=== PATIENT | female | born 1950 | race Hispanic/Latino ===

== ENCOUNTER 2016-12-31 10:14 | Inpatient (IN) | payer MEDICAID, OTHER ==
[~2016-12-31] VITALS: Ht 149.9 cm; Wt 90.0 kg
[2016-12-31 10:27] VITALS: BP 151/84; PULSE 101; RESP 16; O2SAT 96
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
[2016-12-31 11:31] LABS: BASOPHILS % (AUTO) 0.7 % (0-3); EOSINOPHILS % (AUTO) 1.1 % (0-5); Mean Corpuscular Hemoglobin 31.2 pg (27.0-35.0); Mean Corpuscular Volume 93.2 fL (81-100); Platelet Count 187 bil/L (150-400)
[2016-12-31 16:22] VITALS: BP 146/70; PULSE 78; RESP 16; O2SAT 99
[2016-12-31] MEDS ORDERED: OLANZapine Zydis ODT 5 mg Tablet PO ONE (19:00)
[2016-12-31 20:14] VITALS: BP 139/67; PULSE 72; RESP 16; O2SAT 98
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
[2016-12-31] MEDS ORDERED: Magnesium Hydroxide 10 mL Oral Concentration PO PRN (21:05)
[2016-12-31] MEDS ORDERED: Benzocaine-Menthol Lozenge 2/Pkg PO PRN (21:05)
[2016-12-31] MEDS ORDERED: Alum-Mag Hydrox-Simeth 30 mL Suspension PO PRN (21:05)
[2016-12-31] MEDS: LORazepam 1 mg Tablet PO PRN (21:18)
[2017-01-01] MEDS: LORazepam 1 mg Tablet PO PRN (01:13)
--- NOTE | 2017-01-01 03:06 | NUR ---
ADMIT/NOC OBS Pt arrived to unit in scrubs with daughter and per diem interpreter was available as pt is Citizen [place] speaking.through the help of the per diem interpreter and her daughter the pt was able to sign all paperwork and be oriented to the unit. She appears anxious, and this is also relayed in interpretation. Pt did get up a couple times in the night to walk the singleton and for drinks. She is pleasant with interaction and willing to try communication through signing for simple needs and questions. Observed Q 15 as ordered.
--- NOTE | 2017-01-01 04:43 | NUR ---
Nursing Note Service Delivery Management Consultant 7pm to 7am Pt arrived on unit at 2024, pleasant and cooperative with very limited turkish. Pt given HS meds and took ativan 1mg prn for anxiety and went to bed. Pt awake at 0115, requested a snack and reported feeling anxious. Given another ativan 1mg at 0115 and went back to her room where she tossed and turned until approx 0330 when she went back to sleep. Unable to assess thought content or process due to language barrier. Monitored pt. for safety, location and accountability
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
--- NOTE | 2017-01-01 15:34 | NUR ---
Central Office Frame Wirer/Counselor S:"People need to feel bad in their own house." O:Patient did not report any SI or HI. She did not voice any AH/VH, and rated her anxiety and depression at a 0. Patient was provided with a tele-vocational education professional. A: Patient was cooperative but tangential at time. The vocational education professional had to re-direct and ask questions several times. Patient was in a good mood but due to the language barrier, she is unable to communicate with staff. P: Follow care plan and coordinate with outpatient providers. Utilize vocational education professional as needed.
--- NOTE | 2017-01-01 18:36 | NUR ---
NURS Note [id number] Assessed through an slasher tender. Mood: "I'm good and calm." Denies depression, anxiety. Affect: Well-modulated. Thought Process/Content: "There are too many people living in my house. I need them to leave. I just need to go home and give my family therapy so that they'll act right and not drink so much beer. The Jehovahs witnesses are spies, they are coming for me. I can read theirs thoughts." Paranoid, delusional, bizarre. Denies SI, HI. Denies AH, VH. Behavior: Pt in room until lunch. Ate lunch and dinner. After lunch pt spoke with doctor, case reviewer, and myself through an slasher tender. Pt has been pleasant and cooperative. Pt's family visited and brought clothes and other items (inventoried). PRNs/NURS: Pt in need of shower -- pt's daughter's have requested to help bath pt. Pt has some trouble rising from bed. Blood sugars started tonight (228), continue to monitor.
--- NOTE | 2017-01-02 06:23 | NUR ---
Nursing Note Jeweler Apprentice 7pm to 7am Pt went to sleep at start of shift and slept uninterrupted for duration. Breathing even and unlabored. Staff choose not to wake pt. for HS Seroquel as she had not slept the previous night and was sleeping soundly. Monitored pt. with 15 minute face checks for safety, location and accountability.
[2017-01-02 08:05] VITALS: BP 118/84; PULSE 123; RESP 18
--- NOTE | 2017-01-02 17:11 | PCM.PNPSY ---
Subjective Date of Service Jan 02, 2017 Subjective The patient was seen with a interpreter deaf. The patient reported that she was doing well on the unit and felt that the medications were helping her to feel more calm. She stated that the "food not poisoned and was pretty good." She later was noted to be speaking to her vicomy-ic-iyi (who is not physically present), Therese, reporting that she believed her vpzgpv-ie-kan was making tortillas and that they might be poisoned. She also appeared to be having visual hallucinations of her [id number]. She also indicated that perhaps her auimov-av-ryi could hear her thoughts. The patient was noted to make such non sequiturs as commenting on the translators clothing and that he should be wearing a jacket and vest. She also indicated that "Karina and Ade want to get ." She reported that she still has some concerns about food in the home but less so. The patient reports some dry mouth but no other side effects. Sleep: 10+ hours. Appetite: "The food is pretty good" Suicidal and homicidal ideation: Denies suicidal ideation stating, "I feel I am improving." She does however endorse some vague homicidal thoughts. Auditory hallucinations: Endorses Visual hallucinations: Endorses Other Psychotic Symptoms: Paranoia as above Anxiety: 0/10 Depression: 0/10 Current Medications Current Medications Lorazepam 1 mg Q4H PRN PO Last administered on 01/01/17 01:13; Admin Dose 1 MG ; Start 12/31/16 at 21:05 Metformin HCl 500 mg BIDWM PO Last administered on 01/02/17 08:23; Admin Dose 500 MG; Start 01/01/17 at 17:30 Olanzapine 5 mg HS PO Last administered on 12/31/16 21:18; Admin Dose 5 MG; Start 12/31/16 at 21:00; Stop 01/01/17 at 14:54; Status DC Olanzapine 10 mg ONCE ONCE PO Last administered on 12/31/16 19:10; Admin Dose 10 MG; Start 12/31/16 at 19:00; Stop 12/31/16 at 19:01; Status DC Quetiapine Fumarate 100 mg BID PO Last administered on 01/02/17 08:23; Admin Dose 100 MG; Start 01/01/17 at 14:55 Mental Status Exam Appearance: Neat/well groomed Attitude: Pleasant, Cooperative Behavior: No unusual behavior Affect: Well Modulated/Appropriate Mood: Euphoric (almost at times) Thought Process/Associations: Loose, Tangential, Circumstantial, Clanging associations Speech Production: Abundant Speech Rate: Normal Speech Articulation: Slurred (mild dysarthria) Thought Content: Somatic preoccupation, Suspicious Danger to Self/Suicidal Ideati: None Danger to Others: Thoughts/Plans of Harming Others Delusions: Thought Broadcasting (Endorses) Hallucinations: Auditory (Endorses), Visual (Endorses) Consciousness: Alert Orientation: Person, Place Memory: Short Term Memory (Impaired), Winder Tender Memory (Impaired) Estimate Intellectual Function: Average Basis for IQ estimate: Word use/vocabulary, Educational history Attention/Concentration & Cogn: Impaired Insight: Limited Judgement: Limited Result Diagram: 12/31/16 1115 12/31/16 1115 Mental Health Plan The patient is a 66-year-old female with a history of schizophrenia who presents with symptom exacerbation. The patient has not been in active treatment of any kind for some time. It is unclear what exact medication she was taking it appears that the patient was most recently taking what to do and risperidone. According to family members the long-acting risperidone injection appeared to be of little effect. The patient endorsed using quetiapine and felt that this was useful in the past. She was agreeable to restarting this medication and indicated that it is making her feel calmer and she is less paranoid. The patient remains quite delusional, however, and appears to need a higher dose of medication and so we will continue with quetiapine titration. [place] AXIS I Schizophrenia, chronic paranoid type. AXIS II Deferred. AXIS III History of diabetes by report AXIS IV Moderate. AXIS V Global Assessment of Functioning is 30. Medications Quetiapine 100 mg daily and 200 mg nightly Metformin 500 mg twice daily Lorazepam 1 mg every 4 hours as needed for anxiety or agitation Treatments 1. The patient will be admitted to the [facility] and provided a safe and secure environment. 2. The patient is currently denying suicidality and is not in need of a one- to-one at this time. 3. The patient is encouraged to participate in group and milieu activities. 4. The patient will be seen by the treatment team on a daily basis to assess symptoms, side effects and response to treatment. 5. Quetiapine will be increased to 100 mg daily and 200 mg nightly to better address psychosis. 6. The patient will be provided lorazepam 1 mg every 4 hours as needed for anxiety or agitation. 7. Zolpidem 5 mg nightly as needed for insomnia. 8. Will need to followup with [facility] on Tuesday regarding prior treatment. 9. Continue metformin 500 mg twice daily and monitor blood sugars and adjust as appropriate. We will obtain hemoglobin A1c with next blood draw. 10. Anticipated length of stay is 10-14 days. Rohan Moran MD Jan 02, 2017 17:11
--- NOTE | 2017-01-02 17:50 | NUR ---
NURS Note [id number] Mood: "I'm calm and easy." Denies depression, anxiety. Affect: Well-modulated. Behavior: Responding to internal stimuli. Pt isolated in room much of day. Thought Content/Process: "I was telling Carrol not to eat something because they are putting poison in the food. I see Carrol making tortillas in the kitchen." Tangential, loose associations. Endorses AH, VH. Denies SI, HI. PRN/NURS Notes: Day Treatment Clinician/Art Therapist noticed wet spot on chair after pt stood up, but pants did not appear wet. Will place fresh underwear and incontinence pads in pt room. Pt denies problems with urination or defecation. Ate 50% breakfast, 75% lunch. Pt states that she feels comfortable on the unit.
--- NOTE | 2017-01-02 18:02 | NUR ---
Observations [id number] Pt isolative to room much of the day. Friendly with peers and staff throughout the day. Attended all meals, eating an average of 75%. Pt visited with family in the afternoon, appeared to enjoy her visit. Pt language barrier makes it difficult to communicate with other peers. Pt observed every 15 minutes of shift as directed.
[2017-01-02] MEDS: LORazepam 1 mg Tablet PO PRN (21:29)
--- NOTE | 2017-01-02 23:10 | NUR ---
Nursing 7p-7a Pt had family visiting this evening. After her family left she returned to her room. She is pleasant and cooperative upon interaction. She smiled and took her scheduled medication without difficulty. She was noted to be asleep by 2200. Will continue to monitor mood, behavior and sleep cycle through the night. Addendum: 01/03/17 at 0601 by MARTINEZ KWAN RN Adequate sleep through the night with no noted distress or awakening per protocol checks. Total sleep over 8 hours.
[2017-01-03 11:45] VITALS: BP 112/72; PULSE 102
--- NOTE | 2017-01-03 14:11 | NUR ---
NURS Note [id number] Assessed with live endocrinologist. Mood: Denies depression and anxiety. Affect: Well-modulated. Thought Process/Content: "I'm not hearing Carrol's voice today." Denies AH, VH. Denies SI, HI. Behavior: Pt isolated in room much of day. Out for meals. PRN/NURS Notes: AM BG 149. No PRNs. Physical therapy consult today, assessed [id number] and gait. PT felt that patient was relatively stable getting up and walking and felt that pt did not require a walker but could use one if she wanted to. Pt has expressed that she found the walk helpful, walker currently in pt room. PT recommends that patient buy a four wheel walker if she wants assistive device for home but does not feel that it is necessary. Patient expressed that she does have trouble getting up in the morning and sometimes feels dizzy. Outsole Cutter Machine observed pt struggling to rise in morning and assisted pt in getting out of bed. Pt states that she defecated in her underwear. Pt given clean underwear, depends, and pads. Stated "I'll put them back on if I have diarrhea again." Explained medications to patient. Pt did not have any questions about medications or care.
--- NOTE | 2017-01-03 15:33 | PCM.PNPSY ---
Subjective Date of Service Jan 03, 2017 Subjective The patient was seen with a senior geologist. The patient reported to nursing staff that she had had an episode of diarrhea without bleeding or melena and believed it was due to potatoes and broccoli from dinner. She reported feeling fine without any nausea chills or other somatic symptoms. The patient reported that she was doing well on the unit and felt that the medications were helping her. She indicated that she did not believe the food here was poisoned and was not sure about the food at home as she is here now. She denied speaking to her yzxwrn-aa-vtu Therese using telepathy but immediately reported speaking to her son telling him to go out to eat rather than eat at home so that he would not be exposed to poison. The patient reported that she needed further time to get well but could not say how long. She initially stated "you are out of luck because I am not going to here." When it was explained to the patient that we were trying to find out how much time she thought she needed to be in the hospital, she laughed and said she did not know. The patient was reluctant to increase quetiapine but later agreed when she was informed it would only be 300 mg. The patient reports some dry mouth but no other side effects. Sleep: 8+ hours, "well". Appetite: "good" Suicidal and homicidal ideation: Denies Auditory hallucinations: Endorses Visual hallucinations: Denies Other Psychotic Symptoms: Telepathy as above Anxiety: 0/10 Depression: 0/10 Current Medications Current Medications Metformin HCl 500 mg BIDWM PO Last administered on 01/03/17t 07:37; Admin Dose 500 MG; Start 01/01/17 at 17:30 Mental Status Exam Vital Signs Vital Signs Date Time Temp Pulse Resp B/P Pulse Ox O2 Delivery O2 Flow Rate FiO2 01/03/17 11:45 37.6 102 112/72 Appearance: Neat/well groomed Attitude: Pleasant, Cooperative Behavior: No unusual behavior Affect: Well Modulated/Appropriate Mood: Euphoric (almost at times) Thought Process/Associations: Loose, Tangential Speech Production: Normal Speech Rate: Normal Speech Articulation: Slurred (mild dysarthria) Thought Content: Somatic preoccupation, Suspicious Danger to Self/Suicidal Ideati: None Danger to Others: None Delusions: Thought Broadcasting (Endorses) Hallucinations: Auditory (Endorses), Visual (Denies) Consciousness: Alert Orientation: Person, Place, Situation Memory: Short Term Memory (Impaired), Mcfp Memory (Impaired) Estimate Intellectual Function: Average Basis for IQ estimate: Word use/vocabulary, Educational history Attention/Concentration & Cogn: Impaired Insight: Limited Judgement: Limited Result Diagram: 12/31/16 1115 12/31/16 1115 Mental Health Plan The patient is a 66-year-old female with a history of schizophrenia who presents with symptom exacerbation. The patient has not been in active treatment of any kind for some time. It is unclear what exact medication she was taking it appears that the patient was most recently taking what to do and risperidone. According to family members the long-acting risperidone injection appeared to be of little effect. The patient endorsed using quetiapine and felt that this was useful in the past. She was agreeable to restarting this medication and indicated that it is making her feel calmer and she is less paranoid. The patient remains quite delusional, however, and appears to need a higher dose of medication and so we will continue with quetiapine titration. The patient is agreeable to further inpatient treatment to stabilize her condition. Blood sugar today 149, we will continue with current dose of metformin. [place] AXIS I Schizophrenia, chronic paranoid type. AXIS II Deferred. AXIS III History of diabetes by report AXIS IV Moderate. AXIS V Global Assessment of Functioning is 30. Medications Quetiapine 100 mg daily and 200 mg nightly Metformin 500 mg twice daily Lorazepam 1 mg every 4 hours as needed for anxiety or agitation Treatments 1. The patient will be admitted to the [facility] and provided a safe and secure environment. 2. The patient is currently denying suicidality and is not in need of a one- to-one at this time. 3. The patient is encouraged to participate in group and milieu activities. 4. The patient will be seen by the treatment team on a daily basis to assess symptoms, side effects and response to treatment. 5. Quetiapine will be increased to 100 mg daily and 200 mg nightly to better address psychosis. 6. The patient will be provided lorazepam 1 mg every 4 hours as needed for anxiety or agitation. 7. Zolpidem 5 mg nightly as needed for insomnia. 8. Will need to followup with [facility] on Tuesday regarding prior treatment. 9. Continue metformin 500 mg twice daily and monitor blood sugars and adjust as appropriate. We will obtain hemoglobin A1c with next blood draw. 10. Anticipated length of stay is 10-14 days. Rohan Moran MD Jan 03, 2017 15:33
--- NOTE | 2017-01-03 15:33 | NUR ---
Evaluation completed. Please go to "Notes" then click on "Assessments and Notes" (bottom left corner of screen). Then select appropriate discipline tab on top of screen.
--- NOTE | 2017-01-03 15:54 | NUR ---
Sde/Counselor S: I'm not planning on dying here. O: Patient did not report any SI or HI, no auditory or visual hallucinations, although patient stated that she is able to communicate in her head with her son and others. She did not have any depression or anxiety. Patient slept for 8+ hours. A: Patient was pleasant and cooperative. She answered all questions that the [place] conservation laborer translated, and was calm and happy. P: Follow care plan, and coordinate with outpatient providers. Continue to utilize agriculture inspector as needed.
--- NOTE | 2017-01-03 18:53 | NUR ---
Observations [id number] Pt isolated to room much of the day, only coming out for meals. Pt did eat an average of 60%. Pt's and son came to visit in evening, pt stated in Libyan "I don't want that soap opera." Pt remained in room rest of shift. She was observed every 15 minutes as directed.
--- NOTE | 2017-01-03 21:25 | NUR ---
NURSING NOTE [id number] (information received via boat carpenter mechanic and from limited conversations w/out boat carpenter mechanic present) Mood: "it's good" Affect: pleasant, calm, fatigued Behavior: pt. has been isolating to room for majority of the shift, resting in bed. She did come out for meals. FSBS at dinner was 178. She was med compliant at HS. Thought processes: dismissive at first in conversation, telling this specifications writer "everything is good" to all questions asked and showing lack of insight into why she is here. When asked if she is hearing voices she first said she hears "the voices of everyone" but when asked for clarification denied AH. Denies VH. Laughed when asked if she feels depressed, anxious, or suicidal.
--- NOTE | 2017-01-04 05:51 | NUR ---
Sleep Pt laid awake in bed all night. She appeared internally preoccupied. Pleasant upon approach. She was offered and accepted Ambien 5mg po prn @ 0240 with no effect.
--- NOTE | 2017-01-04 14:08 | NUR ---
NURS Note DAY Assessed with live lithograph operator present. Mood: "I'm good." Denies depression, anxiety. Affect: Well-modulated. Thought Process/Content: "I'm in bed because I am tired." Speech is more clear than over the weekend. Thought process seems more linear, logical. Pt did make one bizarre comment. She asked who cut my hair and I said "A girl named Amber." She responded with, "Is she Duglas Phelps's daughter?" Behavior: In bed entire shift. Up for meals and court. Pleasant and appropriate with staff. Patient appears to be washing her underwear in the sink. She is aware that we have a washer and dryer machine. PRN/NURS Notes: AM BG 186. Dr. Moran stated that he would consult [facility] for up to date metformin dose. Pt denies diarrhea and incontinence today. Pt states that she is very tired, Dr. Moran has changed psych meds to HS. Pt denies being awake all night, despite staff observations to the contrary.
--- NOTE | 2017-01-04 14:45 | PCM.PNPSY ---
Subjective Date of Service Jan 04, 2017 Subjective The patient is seen with a bilingual interpreter today. The patient is speaking more clearly today and indicates that her thoughts are more clear. She denies feeling that the food is poisoned and knows this as the other patients would be poisoned if she were as well. She denied speaking telepathically with her son or her [id number]. She reported some dry mouth and some daytime sedation. She denied other side effects. We discussed moving quetiapine to bedtime and the patient was agreeable. Later, the nurse that had been working with the patient reported that she had written something on a piece of paper about killing but would not elaborate. She also reportedly made a non sequitur statement about Pres. Phelps. Sleep: Staff report poor patient reports good Appetite: "Good" Suicidal and homicidal ideation: Denies Auditory hallucinations: Denies Visual hallucinations: Denies Other Psychotic Symptoms: Resolving paranoia Anxiety: Denies Depression: Denies Current Medications Current Medications Quetiapine Fumarate 100 mg DAILY PO Last administered on 01/04/17 08:02; Admin Dose 100 MG; Start 01/04/17 at 08:30 Quetiapine Fumarate 200 mg HS PO Last administered on 01/03/17 20:36; Admin Dose 200 MG; Start 01/03/17 at 21:00 Mental Status Exam Appearance: Neat/well groomed Attitude: Pleasant, Cooperative Behavior: No unusual behavior Affect: Well Modulated/Appropriate Mood: Euthymic Thought Process/Associations: Tangential Speech Production: Normal Speech Rate: Normal Speech Articulation: Slurred (mild dysarthria, but improved) Thought Content: Somatic preoccupation, Suspicious Danger to Self/Suicidal Ideati: None Danger to Others: None Delusions: Thought Broadcasting (Denies) Hallucinations: Auditory (Denies), Visual (Denies) Consciousness: Alert Orientation: Person, Place, Situation Memory: Short Term Memory (Impaired), Die Forger Memory (Impaired) Estimate Intellectual Function: Average Basis for IQ estimate: Word use/vocabulary, Educational history Attention/Concentration & Cogn: Impaired Insight: Limited Judgement: Limited Result Diagram: 12/31/16 1115 12/31/16 1115 Mental Health Plan The patient is a 66-year-old female with a history of schizophrenia who presents with symptom exacerbation. The patient has not been in active treatment of any kind for some time. It is unclear what exact medication she was taking it appears that the patient was most recently taking what to do and risperidone. According to family members the long-acting risperidone injection appeared to be of little effect. The patient endorsed using quetiapine and felt that this was useful in the past. She was agreeable to restarting this medication and indicated that it is making her feel calmer and she is less paranoid. The patient remains quite delusional, however, and appears to need a higher dose of medication and so we will continue with quetiapine titration. The patient is agreeable to further inpatient treatment to stabilize her condition. Blood sugar today 186, we will contact [facility] to verify dose but will increase to 1000 mg twice daily. The patient will be switched to 300 mg quetiapine at bedtime to reduce daytime sedation. [place] AXIS I Schizophrenia, chronic paranoid type. AXIS II Deferred. AXIS III History of diabetes by report AXIS IV Moderate. AXIS V Global Assessment of Functioning is 30. Medications Quetiapine 300 mg nightly Metformin 1000 mg twice daily Lorazepam 1 mg every 4 hours as needed for anxiety or agitation Treatments 1. The patient will be admitted to the [facility] and provided a safe and secure environment. 2. The patient is currently denying suicidality and is not in need of a one- to-one at this time. 3. The patient is encouraged to participate in group and milieu activities. 4. The patient will be seen by the treatment team on a daily basis to assess symptoms, side effects and response to treatment. 5. Quetiapine will be changed to 300 mg nightly to better address psychosis and reduce sedation. 6. The patient will be provided lorazepam 1 mg every 4 hours as needed for anxiety or agitation. 7. Zolpidem 5 mg nightly as needed for insomnia. 8. Will need to followup with [facility] on Tuesday regarding prior treatment. 9. Increase metformin to 1000 mg twice daily. We will obtain hemoglobin A1c with next blood draw. 10. Anticipated length of stay is 10-14 days. Rohan Moran MD Jan 04, 2017 14:44
--- NOTE | 2017-01-04 15:11 | NUR ---
Environmental Quality Analyst/Counselor S:" I need to be here for 2 weeks." O: Patient denies any SI and HI, no anxiety or depression and no auditory or visual hallucinations. Patient stayed in her room most of the day. A: Patient's speech was not as garbled as the day prior, and she was more happy and upbeat. She does not believe anyone is trying to poison her. She was pleasant and cooperative. P: Coordinate with outpatient providers and translators. Follow care plan.
--- NOTE | 2017-01-04 16:44 | NUR ---
Observations [id number] Pt spent much of day in room, sleeping. Pt did attend breakfast, eating 60%. She did not attend lunch. Pt was not social with peers and staff, isolating to bed. She was observed every 15 minutes of shift as directed.
[2017-01-04] MEDS: LORazepam 1 mg Tablet PO PRN (19:26)
[2017-01-04 19:43] VITALS: BP 108/73; PULSE 102
--- NOTE | 2017-01-04 23:45 | NUR ---
Nurses Note evening Patient has been staying in her room and refused lunch,and dinner. Patients' son and daughter visited and encouraged the patient to leave her bed, eat her dinner in the dining room and accepted her medications prior to bed. Patient will be monitored q 15min. checks for safety and support. Addendum: 01/04/17 at 1362 by GEOVANNY FARMER RN Amended: Links added.
--- NOTE | 2017-01-05 04:47 | NUR ---
Observations 1900 - 0700 Pt was in bed when the shift started and she remained in bed and was isolative. Pt was pleasant, polite and cooperative when approached. Pt maintained behavior throughout the shift. Pt speech was poor due to language barrier. Pt was offered snack but she declined. Pt first appeared asleep at 2114, woke up a couple of times and had broken sleep. Pt had a couple of visitors and it appeared to go well. Pt was observed every 15 minutes through the night as ordered.
--- NOTE | 2017-01-05 05:03 | NUR ---
Sleep Broken sleep of 6.5 hours. Pt expressed no discomfort or distress while awake. Q15 minute safety checks.
--- NOTE | 2017-01-05 14:42 | NUR ---
Nursing Day Shift S: "No, no pnico." O: Patient responding to a german version of the [place] scale. Denies the following per the same scale: worry, anxious, sad, unhappy, and harmful thoughts. Eating well at meals. bright and cheery on approach. Readily interacts though warns "no Ingls". Has been out of her room for meals. Mainly stays in her room. Has not attended any group activities. A: Bright and cheerful. Cooperative with meds. P: CPOC. Monitor mood and behavior.
--- NOTE | 2017-01-05 15:20 | NUR ---
Obs Dayshift Pt has been out of her room more today than the past couple days. Pt comes out to eat at meal times. Does not attend groups, does not engage w/ peers difficult communication but smiles and nods politely. Pt is calm, better eye contact, and appropriate. Ok ADL's, Good meals
--- NOTE | 2017-01-05 15:45 | NUR ---
Farm Supervisor/Counselor S: "The food isn't poisoned here, or else everyone else would be sick or , too." O: Patient denies any SI or HI. She did not express any depression or anxiety, and did not have any AVH. She slept for 7 hours last night. A: Patient continues to be worried about the food at her house being poisoned. She stated that she will not take a shower as was requested by the nursing staff, but would sponge bathe in her room. She became quite agitated when the doctor tried to talk about her sons, and was tangential at times. There was some trouble with the portable emergency vehicle operator, and the patient became impatient at times, being unable to hear/understand due to the mode of translation and the echo in the room. Patient was also reminded that it was important to eat at least 2 meals a day, due to her diabetes. She states that she does not feel well enough to go home and would like to stay for 2 weeks. Family stated earlier that the patient has had mental health issues since her early 20's. P: Follow care plan and collaborate with outpatient providers.
--- NOTE | 2017-01-05 15:49 | PCM.PNPSY ---
Subjective Date of Service Jan 05, 2017 Subjective The patient is seen with a scanning tech today. The patient is speaking more clearly today and indicates that her thoughts are more clear. She denies feeling that the food is poisoned at the hospital but is still concerned about it at home. She denied speaking telepathically with her son or her sister-in- law. She reported some dry mouth and some daytime sedation, but overall felt more awake. She denied other side effects. The patient was somewhat irritable with the plasterer stucco at times. We discussed showering on a routine basis, but the patient stated that she would bath by hand in the bathroom. The patient's family was present for court and indicated that the patient had likely been psychotic starting in her 20s. The patient is typically medication non- adherent when experiencing side effects. Sleep: 7+ hours, "good" Appetite: "Good" Suicidal and homicidal ideation: Denies Auditory hallucinations: Denies Visual hallucinations: Denies Other Psychotic Symptoms: Resolving paranoia Anxiety: Denies Depression: Denies Current Medications Current Medications Metformin HCl 1,000 mg BIDWM PO Last administered on 01/05/17 10:15; Admin Dose 1,000 MG; Start 01/04/17 at 17:30 Quetiapine Fumarate 100 mg DAILY PO Last administered on 01/04/17 08:02; Admin Dose 100 MG; Start 01/04/17 at 08:30; Stop 01/04/17 at 23:00; Status DC Quetiapine Fumarate 200 mg HS PO Last administered on 01/04/17 19:27; Admin Dose 200 MG; Start 01/03/17 at 21:00; Stop 01/04/17 at 23:00; Status DC Mental Status Exam Appearance: Neat/well groomed Attitude: Pleasant, Cooperative Behavior: No unusual behavior Affect: Well Modulated/Appropriate Mood: Irritable Speech Production: Normal Speech Rate: Normal Speech Articulation: Slurred (mild dysarthria, but improved) Thought Content: Somatic preoccupation, Suspicious Danger to Self/Suicidal Ideati: None Danger to Others: None Delusions: Thought Broadcasting (Denies), Paranoid (Endorses) Hallucinations: Auditory (Denies), Visual (Denies) Consciousness: Alert Orientation: Person, Place, Situation Memory: Short Term Memory (Impaired), Cemetery Keeper Memory (Impaired) Estimate Intellectual Function: Average Basis for IQ estimate: Word use/vocabulary, Educational history Attention/Concentration & Cogn: Impaired Insight: Limited Judgement: Limited Result Diagram: 12/31/16 1115 12/31/16 1115 Mental Health Plan The patient is a 66-year-old female with a history of schizophrenia who presents with symptom exacerbation. The patient has not been in active treatment of any kind for some time. It is unclear what exact medication she was taking it appears that the patient was most recently taking what to do and risperidone. According to family members the long-acting risperidone injection appeared to be of little effect. The patient endorsed using quetiapine and felt that this was useful in the past. She was agreeable to restarting this medication and indicated that it is making her feel calmer and she is less paranoid. The patient remains quite delusional, however, and appears to need a higher dose of medication and so we will continue with quetiapine titration. The patient is agreeable to further inpatient treatment to stabilize her condition. Blood sugar today 138, and will continue with metformin 1000 mg twice daily. As patient tends to discontinue medications due to side effects will avoid any increases if continues to stabilize on quetiapine 300 mg. [place] AXIS I Schizophrenia, chronic paranoid type. AXIS II Deferred. AXIS III History of diabetes by report AXIS IV Moderate. AXIS V Global Assessment of Functioning is 30. Medications Quetiapine 300 mg nightly Metformin 1000 mg twice daily Lorazepam 1 mg every 4 hours as needed for anxiety or agitation Treatments 1. The patient will be admitted to the [facility] and provided a safe and secure environment. 2. The patient is currently denying suicidality and is not in need of a one- to-one at this time. 3. The patient is encouraged to participate in group and milieu activities. 4. The patient will be seen by the treatment team on a daily basis to assess symptoms, side effects and response to treatment. 5. Quetiapine will be changed to 300 mg nightly to better address psychosis and reduce sedation. 6. The patient will be provided lorazepam 1 mg every 4 hours as needed for anxiety or agitation. 7. Zolpidem 5 mg nightly as needed for insomnia. 8. According to family the patient has been out of treatment for at least 6 months. 9. Increase metformin to 1000 mg twice daily. We will obtain hemoglobin A1c with next blood draw. 10. Anticipated length of stay is 10-14 days. Rohan Moran MD Jan 05, 2017 15:49
--- NOTE | 2017-01-05 17:57 | NUR ---
Nurses Note Evening Patient has been out of her room more today than yesterday,has had breakfast and lunch but declined dinner. She refused a shower earlier as well. Patients' son and daughter to visit later today,will enlist their support in showering, dinner and medication administration. Maintain q 15min. checks for safety and support. Addendum: 01/05/17 at 1812 by GEOVANNY FARMER RN Amended: Links added. Addendum: 01/05/17 at 1841 by GEOVANNY FARMER RN Nurses Note Evening Patient continued to refuse to leave her room,eat dinner. Patient received Seroquel 300mg with Ativan 1mg with the encouragement of her 2 sons and . Will continue to encourage medication compliance,assess medication efficacy, maintain q 15min. checks for safety and support.
[2017-01-05] MEDS: LORazepam 1 mg Tablet PO PRN (18:24)
--- NOTE | 2017-01-06 04:07 | NUR ---
nursing, nights, 11-7 s/o- has appeared to sleep after 2200. up at 0200 for a drink. returned to bed at 0300. appears to be sleeping but somewhat restless. assessed q 15 minutes. a- interrupted sleep, no apparent distress. p- monitor behavior/emotional state, quality, times and amount of sleep, use and effect of medication. selwyn
[2017-01-06 09:09] VITALS: BP 133/83; PULSE 108; RESP 17
--- NOTE | 2017-01-06 14:10 | NUR ---
nursing note: Pt has isolated to her room except for meals. Woke easily for BG which was 126. She washed herself at the sink and is not needing to use her walker. Reviewed the following questions with her: She denies any thoughts of harming herself,or that she has had trouble sleeping. She denies feeling sad or miserable. She was able to ask me for milk and juice. She smiles in our awkward interactions. The seismic interpreter was here with the .
--- NOTE | 2017-01-06 14:54 | NUR ---
Search Strategist/Counselor S: "I slept very comfortably." O: Patient did not express any SI or HI, no AVH, and no anxiety or depression. She was in a good mood, and slept for 5.5 hours. A: Patient stated that she ate breakfast, and was reminded to eat meals regularly due to her diabetic status. She said the reason she was eating was due to the food not being poisoned here, and was delighted at the image of everyone on the unit eating arsonic laced food. She said she knew the food wasn't poisoned because no one has after meals. She is still worried about the food being poisoned at home. P:Follow care plan and coordinate with outpatient providers and family.
--- NOTE | 2017-01-06 16:39 | NUR ---
Observations [id number] Pt isolated to room much of the day. She came to breakfast, but only ate 40%. Pt did not attend Community Meeting, and did not attend group. This medical writer encouraged her to take a shower, her response "no, no". Pt did not eat lunch. She did come out in the early evening, was social and friendly with peers and staff, then returned to room. She was observed every 15 minutes of shift as directed.
--- NOTE | 2017-01-06 18:34 | NUR ---
Nurses Note Evening Patient has been out on the unit for meals and occasional walks in the hallway. Patient refused to shower but used wipes and washed up in the sink in her room. Patient enjoys visits from her family in the evenings. She remains medication compliant without adverse effects. Patients' mood appears cheerful,relaxed and smiling. Will continue to assess medication effect,maintain q 15min. checks for safety. Addendum: 01/06/17 at 1845 by GEOVANNY FARMER RN Amended: Links added.
--- NOTE | 2017-01-06 21:24 | PCM.PNPSY ---
Subjective Date of Service Jan 06, 2017 Subjective The patient is seen with a special education coordinator today. The patient reports that she is doing "fine" and that she feels "happy" today and has been doing well on the unit, but has not been attending groups as they do not speak Czech. The patient reported that she had a visit from family last night. She states it went well, but according to staff, patient spent much of her time in her room. She reported that she had no concern about the food here but stated, "if there were arsenic in it, everyone would eat it happily." Patient reports that she rinses canned vegetables to remove arsenic and other poisons. She denies side effects. When asked about auditory hallucinations, she reported, "only the cohabitation." She reported that this was "threads that are transmitting on the brain. People who use drugs and eat cocaine can see deterioration of brain and they're running out of brain matter." Reports dry mouth is improving. Sleep: 5.5+ hours, "very comfortable" Appetite: "doing well" although only eating some meals. Suicidal and homicidal ideation: Denies Auditory hallucinations/Visual hallucinations: as above Other Psychotic Symptoms: Resolving paranoia as above Anxiety: Denies Depression: Denies Current Medications Current Medications Quetiapine Fumarate 300 mg HS PO Last administered on 01/06/17t 20:11; Admin Dose 300 MG; Start 01/05/17 at 21:00 Mental Status Exam Appearance: Neat/well groomed Attitude: Pleasant, Cooperative Behavior: No unusual behavior Affect: Well Modulated/Appropriate Thought Process/Associations: Tangential Speech Production: Normal Speech Rate: Normal Speech Articulation: Slurred (mild dysarthria, but improved) Thought Content: Somatic preoccupation, Suspicious Danger to Self/Suicidal Ideati: None Danger to Others: None Delusions: Thought Broadcasting (Denies), Paranoid (Endorses) Hallucinations: Auditory (Denies, possibly endorses as above), Visual (Denies, did not answer directly as above) Consciousness: Alert Orientation: Person, Place, Situation Memory: Short Term Memory (Impaired), [facility] Memory (Impaired) Estimate Intellectual Function: Average Basis for IQ estimate: Word use/vocabulary, Educational history Attention/Concentration & Cogn: Impaired Insight: Limited Judgement: Limited Result Diagram: 12/31/16 1115 12/31/16 1115 Mental Health Plan The patient is a 66-year-old female with a history of schizophrenia who presents with symptom exacerbation. The patient has not been in active treatment of any kind for some time. It is unclear what exact medication she was taking it appears that the patient was most recently taking what to do and risperidone. According to family members the long-acting risperidone injection appeared to be of little effect. The patient endorsed using quetiapine and felt that this was useful in the past. She was agreeable to restarting this medication and indicated that it is making her feel calmer and she is less paranoid. The patient remains delusional, but is more pleasant, cooperative and less suspicious. Given report of patient's reluctance to take medications with side effects will allow to stabilize before increasing further. The patient is agreeable to further inpatient treatment to stabilize her condition. Blood sugar today 162, and will continue with metformin 1000 mg twice daily. Encouraging patient to shower, eat meals routinely. [place] AXIS I Schizophrenia, chronic paranoid type. AXIS II Deferred. AXIS III History of diabetes by report AXIS IV Moderate. AXIS V Global Assessment of Functioning is 30. Medications Quetiapine 300 mg nightly Metformin 1000 mg twice daily Lorazepam 1 mg every 4 hours as needed for anxiety or agitation Treatments 1. The patient will be admitted to the [facility] and provided a safe and secure environment. 2. The patient is currently denying suicidality and is not in need of a one- to-one at this time. 3. The patient is encouraged to participate in group and milieu activities. 4. The patient will be seen by the treatment team on a daily basis to assess symptoms, side effects and response to treatment. 5. Quetiapine will be changed to 300 mg nightly to better address psychosis and reduce sedation. Will increase if makes no further progress. 6. The patient will be provided lorazepam 1 mg every 4 hours as needed for anxiety or agitation. 7. Zolpidem 5 mg nightly as needed for insomnia. 8. According to family the patient has been out of treatment for at least 6 months and typically avoids medications with side effects will therefore titrate cautiously to avoid side effects. 9. Increase metformin to 1000 mg twice daily. We will obtain hemoglobin A1c with next blood draw. 10. Anticipated length of stay is 10-14 days. Rohan Moran MD Jan 06, 2017 21:24
--- NOTE | 2017-01-07 05:04 | NUR ---
Nursing Noc Pt resting comfortably this shift. Noted to ambulate in singleton last evening. Noted to be asleep at 2230 and remained asleep throughout the night. Noted dry cough this shift. Resumed metformin this admission. No A1C yet obtained. Pt primarily Angolan speaking. Noted to be asleep since 2230 and remained asleep throughout the shift. Continuing to monitor mood behavior and emotional state. Q15 minute safety checks throughout the night.
[2017-01-07 09:30] LABS: BASOPHILS % (AUTO) 1.1 % (0-3); EOSINOPHILS % (AUTO) 4.3 % (0-5); Mean Corpuscular Hemoglobin 30.7 pg (27.0-35.0); Mean Corpuscular Volume 94.5 fL (81-100); NEUTROPHILS % (AUTO) 67.7 % (40-74); Platelet Count 189 bil/L (150-400)
--- NOTE | 2017-01-07 14:26 | PCM.PNPSY ---
Subjective Date of Service Jan 07, 2017 Subjective The patient is seen with a concrete panel installer today. The patient reports that she is doing "fine." The patient reports that she had a visit with Esteban which went well. She denied hallucinations "just the cohabitation. " I clarified that she was referring to the threads that she described yesterday interconnecting individuals together. She reports that it occurs primarily afternoon and evening. She reports that the "cohabitating people" other ones responsible for supporting her snack into things. She does not believe anyone is tampering with the food here. She reports feeling that the quetiapine is working well and she is not having significant side effects. Nursing staff reported the patient has had a cough and upon questioning the patient stated she had some mild dry throat from the air. She denied any shortness of breath congestion fever or chills or other symptoms. She was offered throat lozenge but declined. Her oropharynx was examined and there was no sign of infection or inflammation. Blood sugar was 118 today. Sleep: 7+ hours, "very comfortable" Appetite: "good" Suicidal and homicidal ideation: Denies Auditory hallucinations/Visual hallucinations: "just the cohabitation" Other Psychotic Symptoms: Resolving paranoia as above Anxiety: Denies Depression: Denies Current Medications Current Medications Quetiapine Fumarate 300 mg HS PO Last administered on 01/06/17t 20:11; Admin Dose 300 MG; Start 01/05/17 at 21:00 Mental Status Exam Appearance: Neat/well groomed Attitude: Pleasant, Cooperative Behavior: No unusual behavior Affect: Well Modulated/Appropriate Mood: Euthymic Thought Process/Associations: Logical/Sequential, Goal Directed, Tangential Speech Production: Normal Speech Rate: Normal Speech Articulation: Slurred (mild dysarthria, but improved) Thought Content: Somatic preoccupation, Suspicious Danger to Self/Suicidal Ideati: None Danger to Others: None Delusions: Thought Insertion, Thought Broadcasting (Denies), Paranoid (Endorses ) Hallucinations: Auditory ("Just the cohabitation"), Visual (Denies) Consciousness: Alert Orientation: Person, Place, Situation Memory: Short Term Memory (Impaired), Duck Bill Operator Memory (Impaired) Estimate Intellectual Function: Average Basis for IQ estimate: Word use/vocabulary, Educational history Attention/Concentration & Cogn: Impaired Insight: Limited Judgement: Limited Result Diagram: 01/07/17 0910 01/07/17 0910 Mental Health Plan The patient is a 66-year-old female with a history of schizophrenia who presents with symptom exacerbation. The patient has not been in active treatment of any kind for some time. It is unclear what exact medication she was taking it appears that the patient was most recently taking metformin and risperidone. According to family members the long-acting risperidone injection appeared to be of little effect. The patient endorsed using quetiapine and felt that this was useful in the past. She was agreeable to restarting this medication and indicated that it is so far making her feel calmer and she is less paranoid. The patient remains delusional, but is more pleasant, cooperative and less suspicious. Given report of patient's reluctance to take medications with side effects will allow to stabilize before increasing further. The patient is agreeable to further inpatient treatment to stabilize her condition. Blood sugar today 118, and will continue with metformin 1000 mg twice daily. Encouraging patient to shower, eat meals routinely. [place] AXIS I Schizophrenia, chronic paranoid type. AXIS II Deferred. AXIS III History of diabetes by report AXIS IV Moderate. AXIS V Global Assessment of Functioning is 30. Medications Quetiapine 300 mg nightly Metformin 1000 mg twice daily Lorazepam 1 mg every 4 hours as needed for anxiety or agitation Treatments 1. The [facility] and provided a safe and secure environment. 2. The patient is currently denying suicidality and is not in need of a one- to-one at this time. 3. The patient is encouraged to participate in group and milieu activities. 4. The patient will be seen by the treatment team on a daily basis to assess symptoms, side effects and response to treatment. 5. Quetiapine will be changed to 300 mg nightly to better address psychosis and reduce sedation. Will increase if makes no further progress by next week, although seems to be making steady progress. 6. The patient will be provided lorazepam 1 mg every 4 hours as needed for anxiety or agitation. 7. Zolpidem 5 mg nightly as needed for insomnia. 8. According to family the patient has been out of treatment for at least 6 months and typically avoids medications with side effects will therefore titrate cautiously to avoid side effects. 9. Continue [id number] mg twice daily. Awaiting hemoglobin A1c drawn today. 10. In house, day care supervisor scheduled for 10:30am daily. 11. Anticipated length of stay is 10-14 days. Rohan Moran MD Jan 07, 2017 14:26
--- NOTE | 2017-01-07 14:34 | NUR ---
Nursing Note [id number] Behavior S/O: Pt took am medications as ordered. Pt pleasant & cooperative with medications. Pt only speaks Arabic, but will sometimes give a yes or no answer in response to an Maltese answer. Attempted to use phone paper baler with pt, but pt only gave 2 word answer. Pt seen by human services case manager & psychiatrist with spanish medical interpreter. Pt out of her room late for meals. She only stays out long enough to eat then returns to her room. Pt's blood sugar this morning before breakfast was 118. A: Pt appears paranoid. P: Provide supportive environment. Monitor medications & effects. Use spanish medical interpreter when needed.
--- NOTE | 2017-01-07 17:54 | NUR ---
[facility] Day Shift Pt maintained behavioral control throughout the shift. Pt affect appears mostly flat. Pt is primarily Serbian-speaking, making interactions with staff and peers difficult. Pt spends most of the shift resting in her room, only leaving her room to attend meals and briefly pace the hallway in the evening. Pt did not attend group activities throughout the shift. Pt attended all meals and ate approx 80% of all meals.
--- NOTE | 2017-01-07 19:08 | NUR ---
manager telemarketing/Counselor: S: "The voices." O: Patient slept 7 last night. Patient denies S/I and H/I. She reports "just the cohabitation" when asked about auditory and visual hallucinations. She denies depression and anxiety. A: Patient is cooperative, euthymic, tangential, suspicious, paranoid, limited insight, limited judgment. P: Follow care plan, coordinate with out-patient providers.
--- NOTE | 2017-01-07 22:51 | NUR ---
NURSING NOTE [id number] Mood: "it's good" Affect: flat, dismissive at times but this is likely d/t language barrier Behavior: mostly resting in bed this shift. Came out for meals. Did not use her walker to ambulate. Dinner FSBS 112. Med compliant. Declined to attend group. Declined to get out of bed when her family visited, telling them she is "lazy", however, family did visit w/her by standing outside of entrance to her room (per unit policy). Her daughter later told staff that she recognizes this as one of her mothers "lazy moods." Thought processes: pt. denies AH/VH, denies SI/HI. Denies depression or anxiety. Of note-- pt. appeared to be denying having issues before this health science writer could ask the questions of her.
--- NOTE | 2017-01-08 05:19 | NUR ---
Nursing note: steward/stewardess night Patient noted to be resting quietly and appears to be sleeping on safety checks during the night.
[2017-01-08 10:46] VITALS: BP 112/68; PULSE 90; RESP 16
--- NOTE | 2017-01-08 11:21 | NUR ---
Nursing Note [id number] Mood, Behavior S/O: Pt out of room before breakfast. Talked with pt briefly without preschool disability teacher. Pt answered in Urdu with superficial 1 word answers. Pt immediately went to her room after attempting to talk with her. She refused to come out for breakfast. Psychiatrist talked with pt in room with preschool disability teacher. Pt refused to come out of room to speak with psychiatrist. Spoke with pt after psychiatrist with preschool disability teacher. Pt refused to rate mood stating, "I'm fine." Pt denies voices. Pt only provides superficial answers and requested only milk & cranberry juice. A: Pt isolative in room. Little insight into mental illness. P: Provide supportive environment. Monitor medications & effects.
--- NOTE | 2017-01-08 13:44 | PCM.PNPSY ---
Subjective Date of Service Jan 08, 2017 Subjective I spent 30 minutes both reviewing treatment plan with our clinical team, interviewing the patient and providing supportive/educational psychotherapy. I spent more than 50% of the time counseling the patient with a a p manager. I reviewed the treatment plan with the patient and discussed options available including the potential risks, benefits and side effects. Shadia reports no difficulty with her thought organization and mood stability. She is requesting discharge. She had poor insight and judgment given her current condition and presentation. Staff reports that she has been isolating and participating poorly in one-to-one unit and group activities. Staff reports she has been expressing ideas of reference in terms of the TV talking to her feels that her food is poisoned and intends to be paranoid about mental health professionals in general. She slept 8 hours and denies depression manic or psychotic symptoms review. She denies medication side effects. She was not able to identify her medications or what they were used to treat. Mental Status Exam Vital Signs Vital Signs Date Time Temp Pulse Resp B/P Pulse Ox O2 Delivery O2 Flow Rate FiO2 01/08/17 10:46 36.3 90 16 112/68 Appearance: Neat/well groomed Attitude: Pleasant, Cooperative Behavior: No unusual behavior Affect: Well Modulated/Appropriate Mood: Euthymic Thought Process/Associations: Logical/Sequential, Goal Directed, Tangential Speech Production: Normal Speech Rate: Normal Speech Articulation: Slurred (mild dysarthria, but improved) Thought Content: Somatic preoccupation, Suspicious Danger to Self/Suicidal Ideati: None Danger to Others: None Delusions: Thought Insertion, Thought Broadcasting (Denies), Paranoid (Endorses ) Hallucinations: Auditory ("Just the cohabitation"), Visual (Denies) Consciousness: Alert Orientation: Person, Place, Situation Memory: Short Term Memory (Impaired), Usp Memory (Impaired) Estimate Intellectual Function: Average Basis for IQ estimate: Word use/vocabulary, Educational history Attention/Concentration & Cogn: Impaired Insight: Limited Judgement: Limited Result Diagram: 01/07/17 0910 01/07/17 0910 Mental Health Plan [place] AXIS I Schizophrenia, chronic paranoid type. AXIS II Deferred. AXIS III History of diabetes by report AXIS IV Moderate. AXIS V Global Assessment of Functioning is 30. Medications Quetiapine 300 mg nightly Metformin 1000 mg twice daily Lorazepam 1 mg every 4 hours as needed for anxiety or agitation Treatments Patient is being provided with a high degree of safety through our unit structure and active adult engagement provided by our mental health professionals, mental health technicians, psychiatric nurses and myself. We are focusing on developing improved coping skills and identifying stressors that may have led to current episode. We will attempt to: * Integrate into therapeutic groups, milieu and individual therapy. * Maintain in a closely monitored and structured unit * Provide low-stimulation environment * Obtain collateral data to assist in treatment planning * Assess degree of lability of affect and impulse control * Complete safety plan * Decrease frequency of relapse and need for re-hospitalization * Establish a consistent sleep pattern * Medication effective in stabilization of mood and/or thought process * Reduce the risk of imminent harm to self and/or others by providing a safe environment * Tolerates medication without side effects Patient will be on the following psychiatric medications: Seroquel 300 mg at bedtime Labs: Education: Educate about metabolic etiologies related to obesity Patient's legal status Patient is on a 14 day involuntary treatment hold. Anticipated number of additional hospital days to achieve above goals: 7 home Disposition: Home . Farhan Mathur MD Jan 08, 2017 13:44
--- NOTE | 2017-01-08 19:33 | NUR ---
OBSERVATIONS Pt remained in bed most of the day, came out to eat lunch but refused breakfast and dinner. Daughter and son came to visit but pt refused. Pt states that she just wants to be left alone to rest. Pt does not like when the door is opened for checks, attempts to barricade door closed with walker. Maintained Q15 checks for safety as directed.
--- NOTE | 2017-01-08 22:27 | NUR ---
Nursing noc Pt remained in room this evening, Took prescribed medications as directed, not interested in communicating with caption writer. Noted to be cleaning herself with wash clothes in her bathroom earlier. Refused family visitation earlier today. Continuing to monitor mood behavior and emotional state. Q15 minute safety checks performed as directed. CP
--- NOTE | 2017-01-09 13:44 | NUR ---
Nursing Note [id number] Behavior S/O: Pt refused breakfast & ate 10% of lunch. Attempted to find out why pt isn't eating. Pt appeared to understand what I was saying, but answered back in [place]. When phone was used to interpret, pt stared at phone & refused to talk. When phone was put away, pt again started talking in [place]. Little eye contact when talking with staff. Pt out of room after lunch to eat. Pt d/n interact with peers & only minimally with staff. She has been in bed most of the day. She refuses activities & d/n attend groups on unit. A: Pt isolates to room. She appears paranoid. No noted improvement. P: Provide supportive environment. Monitor medications & effects.
--- NOTE | 2017-01-09 15:20 | PCM.PNPSY ---
Subjective Date of Service Jan 09, 2017 Subjective I spent 30 minutes both reviewing treatment plan with our clinical team, interviewing the patient and providing supportive/educational psychotherapy. I spent more than 50% of the time counseling the patient with a court interpreter. I reviewed the treatment plan with the patient and discussed options available including the potential risks, benefits and side effects. Shadia repeats that she has no difficulty with her thought organization or her mood stability. She is requesting discharge. She had poor insight and judgment given her current condition and presentation. Staff reports that she continues to isolate and is participating minimally in one-to-one unit and group activities. Staff reports she has been expressing ideas of reference and paranoia. She slept 8 hours and denies depression manic or psychotic symptoms review. She denies medication side effects. She was not able to identify her medications or what they were used to treat. Mental Status Exam Appearance: Neat/well groomed Attitude: Pleasant, Cooperative Behavior: No unusual behavior Affect: Well Modulated/Appropriate Mood: Euthymic Thought Process/Associations: Logical/Sequential, Goal Directed, Tangential Speech Production: Normal Speech Rate: Normal Speech Articulation: Slurred (mild dysarthria, but improved) Thought Content: Somatic preoccupation, Suspicious Danger to Self/Suicidal Ideati: None Danger to Others: None Delusions: Thought Insertion, Thought Broadcasting (Denies), Paranoid (Endorses ) Hallucinations: Auditory ("Just the cohabitation"), Visual (Denies) Consciousness: Alert Orientation: Person, Place, Situation Memory: Short Term Memory (Impaired), Lathe Hand Memory (Impaired) Estimate Intellectual Function: Average Basis for IQ estimate: Word use/vocabulary, Educational history Attention/Concentration & Cogn: Impaired Insight: Limited Judgement: Limited Result Diagram: 01/07/17 0910 01/07/17 0910 Mental Health Plan Shadia has been mostly isolative and staying in bed. She is refusing any type of psychotherapeutic work but is willing to talk to me through the medical interpreter. It seems as though my alliance with her is increasing. She appears to be making slow but gradual progress in improved thought organization and mood stability. At this point she is denying medication side effects. [place] AXIS I Schizophrenia, chronic paranoid type. AXIS II Deferred. AXIS III History of diabetes by report AXIS IV Moderate. AXIS V Global Assessment of Functioning is 30. Medications Quetiapine 300 mg nightly Metformin 1000 mg twice daily Lorazepam 1 mg every 4 hours as needed for anxiety or agitation Treatments Patient is being provided with a high degree of safety through our unit structure and active adult engagement provided by our mental health professionals, mental health technicians, psychiatric nurses and myself. We are focusing on developing improved coping skills and identifying stressors that may have led to current episode. We will attempt to: * Integrate into therapeutic groups, milieu and individual therapy. * Maintain in a closely monitored and structured unit * Provide low-stimulation environment * Obtain collateral data to assist in treatment planning * Assess degree of lability of affect and impulse control * Complete safety plan * Decrease frequency of relapse and need for re-hospitalization * Establish a consistent sleep pattern * Medication effective in stabilization of mood and/or thought process * Reduce the risk of imminent harm to self and/or others by providing a safe environment * Tolerates medication without side effects Patient will be on the following psychiatric medications: Seroquel 300 mg at bedtime Labs: Education: Educate about metabolic etiologies related to obesity Patient's legal status Patient is on a 14 day involuntary treatment hold. Anticipated number of additional hospital days to achieve above goals: 7 home Disposition: Home . Farhan Mathur MD Jan 09, 2017 15:20
--- NOTE | 2017-01-09 21:35 | NUR ---
NURSING NOTE [id number] Mood: "very good" Affect: dismissive Behavior: pt. has been resting in bed for duration of shift, except to ambulate down the singleton to check if dinner was here and when she discovered it was not she became frustrated and returned to her room. A few mins later this sign writer hand went to inform her dinner had arrived and at that point the pt. refused to come out for dinner and told this sign writer hand she wasn't hungry. 17:30 FSBS was 114. She did finally agree to eat an orange in her room (she has eaten very little today). Pt's family visited for less than 5 mins; pt. refused to get out of bed and then asked them to leave. At 19:30 pt. was heard dry heaving in her bathroom. Pt.demanded privacy at that time when staff checked in on her. Pt. denied stomach sickness, nausea, or pain upon reassessment. Med compliant. Thought processes: pt. denies hallucinations, however, can be heard talking to herself in her room. She is delusional. Asked this sign writer hand if her medications were poison. Pt. agreeable to take meds with reassurance. Denies all issues when asked by this sign writer hand.
--- NOTE | 2017-01-10 04:59 | NUR ---
Nursing Note Inspector And Sorter 11pm to 7am Pt asleep at start of shift but awoke during the night and heard dry heaving in bathroom. When approached by staff she denied nausea or indigestion and declined Malox offered. Pt did take Ambien 5mg for insomnia, at 0030, and went back to sleep and slept the duration of the night. Pt monitored with q15 min face checks for safety, location and accountability.
[2017-01-10 11:06] VITALS: BP 142/66; PULSE 110; RESP 16
--- NOTE | 2017-01-10 11:53 | PCM.PNPSY ---
Subjective Date of Service Jan 10, 2017 Subjective I spent 30 minutes both reviewing treatment plan with our clinical team, interviewing the patient and providing supportive/educational psychotherapy. I spent more than 50% of the time counseling the patient with a telephone appointment clerk. I reviewed the treatment plan with the patient and discussed options available including the potential risks, benefits and side effects. Shadia repeats that she has no difficulty with her thought organization or her mood stability. She is requesting discharge. She had poor insight and judgment given her current condition and presentation. Staff reports that she continues to isolate (patient remaining in bed throughout most of the day) and is participating minimally in one-to-one unit and group activities. Staff reports she has been expressing ideas of reference and paranoia. She believes the staff are poisoning her meds. She has been seen on multiple times attempting to vomit after taking meds. For example she took her diabetic medication today and then vomited. She slept 8 hours and denies depression manic or psychotic symptoms review. She denies medication side effects. She was not able to identify her medications or what they were used to treat. Mental Status Exam Vital Signs Vital Signs Date Time Temp Pulse Resp B/P Pulse Ox O2 Delivery O2 Flow Rate FiO2 01/10/17 11:06 36.8 110 16 142/66 Appearance: Unkept Attitude: Guarded, Uncooperative Behavior: Other (isolating and staying in bed no eye contact) Affect: Blunted, Flat Mood: Dysthymic Thought Process/Associations: Tangential Speech Production: Normal Speech Rate: Normal Speech Articulation: Slurred (mild dysarthria, but improved) Thought Content: Somatic preoccupation, Suspicious Danger to Self/Suicidal Ideati: None Danger to Others: None Delusions: Thought Insertion, Thought Broadcasting (Denies), Paranoid (Endorses ) Hallucinations: Auditory ("Just the cohabitation"), Visual (Denies) Consciousness: Alert Orientation: Person, Place, Situation Memory: Short Term Memory (Impaired), Embedded Firmware Developer Memory (Impaired) Estimate Intellectual Function: Average Basis for IQ estimate: Word use/vocabulary, Educational history Attention/Concentration & Cogn: Impaired Insight: Limited Judgement: Limited Result Diagram: 01/07/17 0910 01/07/17 0910 Mental Health Plan Shadia has been mostly isolative and staying in bed. She is refusing any type of psychotherapeutic work but is willing to talk to me through the instructor watch assembly. It seems as though my alliance with her is increasing. She appears to be making slow but gradual progress in improved thought organization and mood stability despite nearly complete nonparticipation in the unit program. At this point she is denying medication side effects. [place] AXIS I Schizophrenia, chronic paranoid type. AXIS II Deferred. AXIS III History of diabetes by report AXIS IV Moderate. AXIS V Global Assessment of Functioning is 30. Medications Quetiapine 300 mg nightly Metformin 1000 mg twice daily Lorazepam 1 mg every 4 hours as needed for anxiety or agitation Treatments Patient is being provided with a high degree of safety through our unit structure and active adult engagement provided by our mental health professionals, mental health technicians, psychiatric nurses and myself. We are focusing on developing improved coping skills and identifying stressors that may have led to current episode. We will attempt to: * Integrate into therapeutic groups, milieu and individual therapy. * Maintain in a closely monitored and structured unit * Provide low-stimulation environment * Obtain collateral data to assist in treatment planning * Assess degree of lability of affect and impulse control * Complete safety plan * Decrease frequency of relapse and need for re-hospitalization * Establish a consistent sleep pattern * Medication effective in stabilization of mood and/or thought process * Reduce the risk of imminent harm to self and/or others by providing a safe environment * Tolerates medication without side effects Patient will be on the following psychiatric medications: Seroquel 300 mg at bedtime Labs: Education: Educate about metabolic etiologies related to obesity Patient's legal status Patient is on a 14 day involuntary treatment hold. Anticipated number of additional hospital days to achieve above goals: 7 home Disposition: Home . Farhan Mathur MD Jan 10, 2017 11:53
--- NOTE | 2017-01-10 13:15 | NUR ---
Obs Dayshift Pt is Isolating to her room, declines meals, declines any assistance from staff. Pt refuses to come out of her room most of the day, randomly she will come out and walk a lap or two in the singleton and back to her room. Declines groups. Pt was heard and then observed by an RN marla reed in her bathroom in the late morning. Pt is drinking some water, but very little. Engages very little, dismissive, blunted, and often declines even to talk to or see family. Staff will attempt to force pt out of her room after med pass and lock the door for a time period. Very poor ADL's, Very poor meals
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
--- NOTE | 2017-01-10 15:17 | NUR ---
Wire Machine Cutter/Counselor S:The medicines are poison." O: Patient did not express any SI or HI, but still maintains she is able to communicate in her head with others, as well as thinking the food at home is poisoned. No anxiety or depression was expressed. Patient slept for 8.5 hours. A: Patient was out for meals, but has been secluded in her room. Retching sounds can be heard from the inside, and the patient was agitated when the lease purchase truck driver tried to enter the room. She has not participated in group or other activities due to language barriers. Patient progress seems to have diminished over the weekend. She continues to be paranoid about poisoned food at home, and now feels that her medications are also poison. P: Follow treatment plan and coordinate with outpatient providers.
--- NOTE | 2017-01-10 22:47 | NUR ---
NURSING NOTE [id number] Mood: "good" Affect: labile; pleasant at times, other times irritable w/staff Behavior: pt. resting in bed w/eyes open at start of shift. Pt's dinner FSBS was 117. Pt. came out for dinner at 17:30 at which point her room was locked per order (concern being that she is attempting to vomit up her meals and medicine because she believes they are poison) and she was given her scheduled Metformin at that time. Pt. ate 20% of her dinner. She then tried to return to her room and was reminded by staff that it would be locked for 30 mins. She became frustrated and began banging on the door and saying "bathroom, bathroom". She then turned and began walking up and down the hallway peering into other patient rooms and attempting to go into other patients' bathrooms. Also ambulated down the singleton gesticulating with her arms in a controlled motion while loudly exhaling (her son later reported this is a behavior she does when her voices are getting louder and she is attempting to expel them). Pt. was redirected by staff several times and eventually came and sat out in the dining room. Her son visited shortly thereafter. After the visit, the pt. returned to her room and lay back down in bed. Thought processes: continues to be delusional and believes she is being poisoned. Is heard speaking to herself in her room.
--- NOTE | 2017-01-11 05:09 | NUR ---
Nursing Shift Bank Advisor 11pm to 7am Pt asleep at start of shift and remained asleep for the duration of the night. Pt monitored q 15 minutes for safety location and accountability
[2017-01-11 12:35] VITALS: BP 139/84; PULSE 97; RESP 16
--- NOTE | 2017-01-11 14:44 | PCM.PNPSY ---
Subjective Date of Service Jan 11, 2017 Subjective I spent 30 minutes both reviewing treatment plan with our clinical team, interviewing the patient and providing supportive/educational psychotherapy. I spent more than 50% of the time counseling the patient with a software developer. I reviewed the treatment plan with the patient and discussed options available including the potential risks, benefits and side effects. Shadia repeats that she has no difficulty with her thought organization or her mood stability. She denies review of systems for paranoia. She states she does not believe her medications or the food is poisoned She is requesting discharge. She had poor insight and judgment given her current condition and presentation. Staff reports that she was significantly more social active and engaged out on the unit with other clients but is participating minimally in one-to-one and group activities. Staff reports that although she denies paranoia staff believes she is vomiting after medications and meals he cut she believes we are poisoning her medications and food. She continues to attempt to vomit after taking medication and meals. For example she took her diabetic medication today and then attempted to find a toilet to vomit in. She slept 8 hours and denies depression manic or psychotic symptoms review (patient is a poor historian and appears to be rationalizing to justify recent bizarre behavior). She denies medication side effects. Mental Status Exam Vital Signs Vital Signs Date Time Temp Pulse Resp B/P Pulse Ox O2 Delivery O2 Flow Rate FiO2 01/11/17 12:35 36.7 97 16 139/84 Appearance: Unkept Attitude: Pleasant, Guarded Behavior: Other (isolating and staying in bed no eye contact) Affect: Blunted, Flat Mood: Dysthymic Thought Process/Associations: Tangential Speech Production: Normal Speech Rate: Normal Speech Articulation: Slurred (mild dysarthria, but improved) Thought Content: Somatic preoccupation, Suspicious Danger to Self/Suicidal Ideati: None Danger to Others: None Delusions: Thought Insertion, Thought Broadcasting (Denies), Paranoid (Endorses ) Hallucinations: Auditory ("Just the cohabitation"), Visual (Denies) Consciousness: Alert Orientation: Person, Place, Situation Memory: Short Term Memory (Impaired), Site Engineer Memory (Impaired) Estimate Intellectual Function: Average Basis for IQ estimate: Word use/vocabulary, Educational history Attention/Concentration & Cogn: Impaired Insight: Limited Judgement: Limited Result Diagram: 01/07/17 0910 01/07/17 0910 Mental Health Plan Shadia has been mostly isolative and staying in bed. She is refusing any type of psychotherapeutic work but is willing to talk to me through the body presser. It seems as though my alliance with her is increasing. She appears to be making slow but gradual progress in improved thought organization and mood stability despite nearly complete nonparticipation in the unit program. At this point she is denying medication side effects. Staff reports that she was significantly more social active and engaged out on the unit for the past 24 hours with other clients but is participating minimally in one-to-one and group activities. Staff reports that although she denies paranoia staff believes she is vomiting after medications and meals in we are theorizing that she believes the medications and food has been poisoned. She continues to attempt to vomit after taking medication and meals. For example she took her diabetic medication today and then attempted to find a toilet to vomit in. She slept 8 hours and denies depression manic or psychotic symptoms review (patient is a poor historian and appears to be rationalizing to justify recent bizarre behavior). [place] AXIS I Schizophrenia, chronic paranoid type. AXIS II Deferred. AXIS III History of diabetes by report AXIS IV Moderate. AXIS V Global Assessment of Functioning is 30. Medications Quetiapine 300 mg nightly Metformin 1000 mg twice daily Lorazepam 1 mg every 4 hours as needed for anxiety or agitation Treatments Patient is being provided with a high degree of safety through our unit structure and active adult engagement provided by our mental health professionals, mental health technicians, psychiatric nurses and myself. We are focusing on developing improved coping skills and identifying stressors that may have led to current episode. We will attempt to: * Integrate into therapeutic groups, milieu and individual therapy. * Maintain in a closely monitored and structured unit * Provide low-stimulation environment * Obtain collateral data to assist in treatment planning * Assess degree of lability of affect and impulse control * Complete safety plan * Decrease frequency of relapse and need for re-hospitalization * Establish a consistent sleep pattern * Medication effective in stabilization of mood and/or thought process * Reduce the risk of imminent harm to self and/or others by providing a safe environment * Tolerates medication without side effects Patient will be on the following psychiatric medications: Seroquel 300 mg at bedtime Patient's legal status Patient is on a 14 day MR involuntary treatment hold. Anticipated number of additional hospital days to achieve above goals: 7 home Disposition: Home . Farhan Mathur MD Jan 11, 2017 14:44
--- NOTE | 2017-01-11 15:14 | NUR ---
Glass Washer/Counselor S: "If the medicine was poisoned, I'd be ." O: Patient did not express any SI, HI, AVH or depression or anxiety. A: Patient has refused her medications, and has secluded herself to her bedroom. She has been overheard making retching noises, but stated that it was oranges that agitated her stomach and make her vomit. She refused any kind of antacid. She denied any thoughts of the food or the medications being poisoned. She was cooperative when working with the child nutrition manager. \\ P:Follow care plan and coordinate with outpatient providers.
--- NOTE | 2017-01-11 15:29 | NUR ---
Observations [id number] Pt isolated to room much of day, coming out for breakfast and received meds. Per doctors orders, locked out of room for half hour after meal. Pt remained in dining room appearing to be content with situation. Pt did not eat lunch. She was encouraged by staff to attend, to which pt became extremely agitated, posturing in a threatening manner with her shoe ready to throw at staff, but did not. Pt did not attend group, laid in bed much of the day. Pt not showering, appears to be washing clothing in bathroom. Pt was observed every 15 minutes of shift as directed.
--- NOTE | 2017-01-11 17:46 | NUR ---
Nursing Notes [id number] S: "I just felt like I needed to apologize and let you know that I am not really God, I am just a regular anastasiia". O: Patient approaching peers and staff, attempting to apologize. A: Sad, flat, isolative, guilt ridden, anxious, self-incriminating. P: Monitor for safety and response to treatment. Follow plan of care. Addendum: 01/11/17 at 2014 by FABIANO DIEGO RN Previous note should have been on another pt's chart.
--- NOTE | 2017-01-11 17:47 | NUR ---
Nursing Note [id number] S: "The orange is making my stomach hurt-that is all. I am too tired for lunch". O: Patient continues to self-induce vomiting, but now claims that an orange at breakfast was making her stomach burn (Yesterday, patient reported that she was trying to vomit poisoned medication that we gave her). Of note, patient was also attempted to vomit early this morning. Patient locked out of room at breakfast per doctors order. Patient refused to leave room at lunch. Threatened to throw her flip flop at [facility]. A: Brighter presentation-smiling, continues to be guarded, withdrawn. P: Monitor for safety and response to treatment. Follow plan of care.
--- NOTE | 2017-01-12 07:03 | NUR ---
Sleep Adequate sleep through the night with no noted distress or awakening per protocol checks. Total sleep over 7.5 hours.
[2017-01-12 13:32] VITALS: BP 119/79; PULSE 117; RESP 16
--- NOTE | 2017-01-12 13:50 | NUR ---
Auto Battery Builder/Counselor S:"I just want to rest." O: Patient did not report any SI or HI, no anxiety or depression, and stated she was not paying any attention to the voices. A: Patient was fairly uncooperative and insisted on staying her bed. It was hard to understand her at times, due to her face being in her pillow, and the customer solutions teammate stating that she was nonsensical at times and also using words that the customer solutions teammate wasn't familiar with. Patient stated that she did not think she was being poisoned, and she denied any attempt at making herself throw up. P:Follow care plan and coordinate with outpatient providers.
--- NOTE | 2017-01-12 14:41 | PCM.PNPSY ---
Subjective Date of Service Jan 12, 2017 Subjective I spent 20 minutes both reviewing treatment plan with our clinical team, discussing mental health professional Karina's interview with field marketing team leader and the patient. I spent less than 50% of the time counseling the patient . Shadia repeats that she has no difficulty with her thought organization or her mood stability. She did acknowledge that she struggling with auditory hallucinations but she is just "ignoring them". She denies review of systems for paranoia. She states she does not believe her medications or the food is poisoned. She is requesting discharge. She had poor insight and judgment given her current condition and presentation. Staff reports that she has been attempting to be more social, active and engaged out on the unit with other clients but is participating minimally in one -to-one . Staff reports that although she denies paranoia staff believes she is vomiting after medications and meals theorizing that she still believes we are poisoning her medications and food. She continues to attempt to vomit after taking medication and meals. She slept 8 hours and denies depression manic or psychotic symptoms review (patient is a poor historian and appears to be rationalizing to justify recent bizarre behavior). She denies medication side effects Mental Status Exam Vital Signs Vital Signs Date Time Temp Pulse Resp B/P Pulse Ox O2 Delivery O2 Flow Rate FiO2 01/12/17 13:32 36.1 117 16 119/79 Appearance: Unkept Attitude: Pleasant, Guarded Behavior: Other (isolating and staying in bed no eye contact) Affect: Blunted, Flat Mood: Dysthymic Thought Process/Associations: Tangential Speech Production: Normal Speech Rate: Normal Speech Articulation: Slurred (mild dysarthria, but improved) Thought Content: Somatic preoccupation, Suspicious Danger to Self/Suicidal Ideati: None Danger to Others: None Delusions: Thought Insertion, Thought Broadcasting (Denies), Paranoid (Endorses ) Hallucinations: Auditory ("Just the cohabitation"), Visual (Denies) Consciousness: Alert Orientation: Person, Place, Situation Memory: Short Term Memory (Impaired), Battery Test Engineer Memory (Impaired) Estimate Intellectual Function: Average Basis for IQ estimate: Word use/vocabulary, Educational history Attention/Concentration & Cogn: Impaired Insight: Limited Judgement: Limited Result Diagram: 01/07/17 0910 01/07/17 0910 Mental Health Plan Shadia has been mostly isolative and staying in bed. She is refusing any type of psychotherapeutic work but is willing to talk to me through the field marketing team leader. It seems as though my alliance with her is increasing. She appears to be making slow but gradual progress in improved thought organization and mood stability despite nearly complete nonparticipation in the unit program. At this point she is denying medication side effects. Staff reports that she was significantly more social active and engaged out on the unit for the past 24 hours with other clients but is participating minimally in one-to-one and group activities. Staff reports that although she denies paranoia staff believes she is vomiting after medications and meals in we are theorizing that she believes the medications and food has been poisoned. She continues to attempt to vomit after taking medication and meals. For example she took her diabetic medication today and then attempted to find a toilet to vomit in. She slept 8 hours and denies depression manic or psychotic symptoms review (patient is a poor historian and appears to be rationalizing to justify recent bizarre behavior). [place] AXIS I Schizophrenia, chronic paranoid type. AXIS II Deferred. AXIS III History of diabetes by report AXIS IV Moderate. AXIS V Global Assessment of Functioning is 30. Medications Quetiapine 300 mg nightly Metformin 1000 mg twice daily Lorazepam 1 mg every 4 hours as needed for anxiety or agitation Treatments Patient is being provided with a high degree of safety through our unit structure and active adult engagement provided by our mental health professionals, mental health technicians, psychiatric nurses and myself. We are focusing on developing improved coping skills and identifying stressors that may have led to current episode. We will attempt to: * Integrate into therapeutic groups, milieu and individual therapy. * Maintain in a closely monitored and structured unit * Provide low-stimulation environment * Obtain collateral data to assist in treatment planning * Assess degree of lability of affect and impulse control * Complete safety plan * Decrease frequency of relapse and need for re-hospitalization * Establish a consistent sleep pattern * Medication effective in stabilization of mood and/or thought process * Reduce the risk of imminent harm to self and/or others by providing a safe environment * Tolerates medication without side effects Patient will be on the following psychiatric medications: Seroquel 300 mg at bedtime Patient's legal status Patient is on a 14 day involuntary treatment hold. Anticipated number of additional hospital days to achieve above goals: 7 home Disposition: Home . Farhan Mathur MD Jan 12, 2017 14:41
--- NOTE | 2017-01-12 18:55 | NUR ---
NURS Note Day Mood: Denies depression, anxiety. Affect: Well-modulated. Behavior: Out of room 2678-1977 for breakfast. In room resting/sleeping the remainder of the morning. Thought Content/Process: "The food is fine, I don't think you are poisoning me." Seemed to deny AH, but made some comment that might have been I'm not paying attention to them (director systems was having a difficult time making out her words). Denies delusions related to poisoned food. Denies SI, HI. PRN/NURS Notes: Pt did not eat lunch or dinner. Refused dinner blood sugar and metformin.
--- NOTE | 2017-01-13 05:57 | NUR ---
nursing, nights, 11-7 s/o- has appeared to sleep after 2129 during q 15 minute assessments. a- no apparent distress. p- monitor behavior/emotional state, quality, times and amount of sleep, use and effect of medication. selwyn
--- NOTE | 2017-01-13 10:44 | NUR ---
Product Technician/Counselor S:"I slept well last night." O: Patient denies any SI or HI, not anxiety or depression. She reported no auditory or visual hallucinations. Patient slept for 8 hours. A: Patient used a word that the quality assurance lab technician was not familiar with after reporting that she is not hearing any voices. She stated that there was some sort of vibration or humming, but the quality assurance lab technician was unfamiliar with the word. The patient then reported no auditory hallucinations. Patient also reported eating dinner, despite nurses stating the contrary. Patient also stated that she received a blood draw, and that it took away her depression. P:Follow care plan and coordinate with outpatient providers.
--- NOTE | 2017-01-13 11:49 | NUR ---
[id number]. nurs. S/O: Pt not responding to staffs enc. to get up for breakfast and lying in bed asleep prior to awoken to meet with and caridad. Pt sitting upright and appearing alert at that time .Pt stating without hesitation that she does not feel that the food is poisoned or bad and states that she had not eaten some meals, because food had not been brought to her, pt stating that she trusted staff was not attempting to harm her because she had been well taken care of in hosp and came to DR to eat breakfast. Pt reporting that she understood that her was coming to get her at 2pm today, and appeared surprised that staff was unaware of this plan. Dr explained court requirements and that she would be staying in hospital for further days. A:Pt calm, alert, rapid reponses to questions, some erroneous understanding of care plan, Pt to be enc. to not isolate in bedrm , being locked out of bedrm during meals and grp times. P:CNCP
--- NOTE | 2017-01-13 12:24 | PCM.PNPSY ---
Subjective Date of Service Jan 13, 2017 Subjective I spent 30 minutes both reviewing treatment plan with our clinical team, in interviewing the client with knife edger . I spent more than 50% of the time counseling the patient . Shadia repeats that she has no difficulty with her thought organization or her mood stability. She did acknowledge that she struggling with auditory hallucinations but she is just "ignoring them". She denies review of systems for paranoia. She states she does not believe her medications or the food is poisoned. She is requesting discharge. She had poor insight and judgment given her current condition and presentation. Staff reports that she has been attempting to be more social, active and engaged out on the unit with other clients but is participating minimally in one -to-one . Staff reports that although she denies paranoia staff believes she is continuing to attempt to vomit after medications and meals theorizing that she still believes we are poisoning her medications and food. She slept 8 hours and denies depression manic or psychotic symptoms review (patient is a poor historian and appears to be rationalizing to justify recent bizarre behavior). She denies medication side effects Mental Status Exam Appearance: Unkept Attitude: Pleasant, Guarded Behavior: Other (isolating and staying in bed no eye contact) Affect: Blunted, Flat Mood: Dysthymic Thought Process/Associations: Tangential Speech Production: Normal Speech Rate: Normal Speech Articulation: Slurred (mild dysarthria, but improved) Thought Content: Somatic preoccupation, Suspicious Danger to Self/Suicidal Ideati: None Danger to Others: None Delusions: Thought Insertion, Thought Broadcasting (Denies), Paranoid (Endorses ) Hallucinations: Auditory ("Just the cohabitation"), Visual (Denies) Consciousness: Alert Orientation: Person, Place, Situation Memory: Short Term Memory (Impaired), Residential Memory (Impaired) Estimate Intellectual Function: Average Basis for IQ estimate: Word use/vocabulary, Educational history Attention/Concentration & Cogn: Impaired Insight: Limited Judgement: Limited Result Diagram: 01/07/17 0910 01/07/17 0910 Mental Health Plan Shadia has been mostly isolative and staying in bed. She is refusing any type of psychotherapeutic work but is willing to talk to me through the knife edger. It seems as though my alliance with her is increasing. She appears to be making slow but gradual progress in improved thought organization and mood stability despite nearly complete nonparticipation in the unit program. At this point she is denying medication side effects. Staff reports that she was significantly more social active and engaged out on the unit for the past 24 hours with other clients but is participating minimally in one-to-one and group activities. Staff reports that although she denies paranoia staff believes she is vomiting after medications and meals in we are theorizing that she believes the medications and food has been poisoned. She continues to attempt to vomit after taking medication and meals. For example she took her diabetic medication today and then attempted to find a toilet to vomit in. She slept 8 hours and denies depression manic or psychotic symptoms review (patient is a poor historian and appears to be rationalizing to justify recent bizarre behavior). [place] AXIS I Schizophrenia, chronic paranoid type. AXIS II Deferred. AXIS III History of diabetes by report AXIS IV Moderate. AXIS V Global Assessment of Functioning is 30. Medications Quetiapine 300 mg nightly Metformin 1000 mg twice daily Lorazepam 1 mg every 4 hours as needed for anxiety or agitation Treatments Patient is being provided with a high degree of safety through our unit structure and active adult engagement provided by our mental health professionals, mental health technicians, psychiatric nurses and myself. We are focusing on developing improved coping skills and identifying stressors that may have led to current episode. We will attempt to: * Integrate into therapeutic groups, milieu and individual therapy. * Maintain in a closely monitored and structured unit * Provide low-stimulation environment * Obtain collateral data to assist in treatment planning * Assess degree of lability of affect and impulse control * Complete safety plan * Decrease frequency of relapse and need for re-hospitalization * Establish a consistent sleep pattern * Medication effective in stabilization of mood and/or thought process * Reduce the risk of imminent harm to self and/or others by providing a safe environment * Tolerates medication without side effects Patient will be on the following psychiatric medications: Seroquel 300 mg at bedtime Patient's legal status Patient is on a 14 day involuntary treatment hold. Anticipated number of additional hospital days to achieve above goals: 7 home Disposition: Home . Farhan Mathur MD Jan 13, 2017 12:24
[2017-01-13 14:33] VITALS: BP 134/85; PULSE 98; RESP 16
[2017-01-14 14:35] VITALS: BP 120/77; PULSE 95; RESP 16
--- NOTE | 2017-01-14 14:59 | PCM.PNPSY ---
Subjective Date of Service Jan 14, 2017 Subjective I spent 30 minutes both reviewing treatment plan with our clinical team, in interviewing the client with central supply tech . I spent more than 50% of the time counseling the patient . Shadia repeats that she has no difficulty with her thought organization or her mood stability. She did acknowledge that she struggling with auditory hallucinations but she is just "ignoring them". She denies review of systems for paranoia. She states she does not believe her medications or the food is poisoned. She is requesting discharge. She had poor insight and judgment given her current condition and presentation but is eating well and interacting socially appropriately on the unit. Staff reports that she has been attempting to be more social, active and engaged out on the unit with other clients but is participating minimally in one -to-one . Staff reports that although she denies paranoia staff believes she is continuing to attempt to vomit after medications and meals theorizing that she still believes we are poisoning her medications and food. She slept well and denies depression manic or psychotic symptoms review (patient is a poor historian and appears to be rationalizing to justify recent bizarre behavior). She denies medication side effects Mental Status Exam Vital Signs Vital Signs Date Time Temp Pulse Resp B/P Pulse Ox O2 Delivery O2 Flow Rate FiO2 01/14/17 14:35 36.4 95 16 120/77 Appearance: Unkept Attitude: Pleasant, Guarded Behavior: Other (isolating and staying in bed no eye contact) Affect: Well Modulated/Appropriate Mood: Euthymic Thought Process/Associations: Tangential Speech Production: Normal Speech Rate: Normal Speech Articulation: Normal Thought Content: Somatic preoccupation, Suspicious Danger to Self/Suicidal Ideati: None Danger to Others: None Delusions: Thought Insertion, Thought Broadcasting (Denies), Paranoid (Endorses ) Hallucinations: Auditory ("Just the cohabitation") Consciousness: Alert Orientation: Person, Place, Situation Memory: Short Term Memory (Impaired), Prison Memory (Impaired) Estimate Intellectual Function: Average Basis for IQ estimate: Word use/vocabulary, Educational history Attention/Concentration & Cogn: Impaired Insight: Limited Judgement: Limited Mental Health Plan Shadia has been mostly isolative and staying in bed. She is refusing any type of psychotherapeutic work but is willing to talk to me through the central supply tech. It seems as though my alliance with her is increasing. She appears to be making slow but gradual progress in improved thought organization and mood stability despite nearly complete nonparticipation in the unit program. At this point she is denying medication side effects. Staff reports that she has been attempting to be more social, active and engaged out on the unit with other clients but is participating minimally in one -to-one . Staff reports that although she denies paranoia staff believes she is continuing to attempt to vomit after medications and meals theorizing that she still believes we are poisoning her medications and food. She slept well and denies depression manic or psychotic symptoms review (patient is a poor historian and appears to be rationalizing to justify recent bizarre behavior). [place] AXIS I Schizophrenia, chronic paranoid type. AXIS II Deferred. AXIS III History of diabetes by report AXIS IV Moderate. AXIS V Global Assessment of Functioning is 30. Medications Quetiapine 300 mg nightly Metformin 1000 mg twice daily Lorazepam 1 mg every 4 hours as needed for anxiety or agitation Treatments Patient is being provided with a high degree of safety through our unit structure and active adult engagement provided by our mental health professionals, mental health technicians, psychiatric nurses and myself. We are focusing on developing improved coping skills and identifying stressors that may have led to current episode. We will attempt to: * Integrate into therapeutic groups, milieu and individual therapy. * Maintain in a closely monitored and structured unit * Provide low-stimulation environment * Obtain collateral data to assist in treatment planning * Assess degree of lability of affect and impulse control * Complete safety plan * Decrease frequency of relapse and need for re-hospitalization * Establish a consistent sleep pattern * Medication effective in stabilization of mood and/or thought process * Reduce the risk of imminent harm to self and/or others by providing a safe environment * Tolerates medication without side effects Patient will be on the following psychiatric medications: Seroquel 300 mg at bedtime Patient's legal status Patient is on a 14 day involuntary treatment hold. Anticipated number of additional hospital days to achieve above goals: 5 Disposition: Home . Farhan Mathur MD Jan 14, 2017 14:59
--- NOTE | 2017-01-14 18:52 | NUR ---
Nursing Days S/O: Pt is smiling and appears to be relaxed and happy. A: Pt is out in the milieu, interacting with other patients, pt is Kinyarwanda speaking only. Pt denies anxiety and depression, pt states she has no SI/HI. Pt out in the DR for meals. Pt participating with group. P: Follow plan of care, monitor behaviors. Monitor for side effects.
--- NOTE | 2017-01-14 18:53 | NUR ---
Seed Trucker/Counselor S:"I didn't want to eat because I'll gain weight." O: Met with patient, psychiatrist, and assistant associate professor. Patient slept 8.5 hours last night per staff. She denies S/I and H/I. She also denies auditory and visual hallucinations. Depression is 0/10 and anxiety is 0/10. When asked her mood, patient stated, "I'm very happy." Patient was happy and laughed throughout the interview. A: Patient is cooperative, pleasant, euthymic, suspicious, paranoid, limited insight, limited judgment. P:Follow care plan and coordinate with outpatient providers.
--- NOTE | 2017-01-14 21:29 | NUR ---
Observations 0900 - 0 Pt was in bed when the shift started and she remained in bed and was isolative all day. Pt was pleasant, polite and cooperative when approached. Pt maintained behavior throughout the shift. Pt speech was poor due to language barrier. Pt was offered snack but she declined. Pt attend breakfast and lunch in [facility]. but declined coming out for dinner. Pt ate 75% of breakfast and lunch. Pt was observed every 15 minutes through the night as ordered.
--- NOTE | 2017-01-15 05:19 | NUR ---
Nursing, NOC shift Patient isolating in her room, wakens easily to take medication and is cooperative. Flat affect. Slept thru the noc, no c/o. No PRN medications given this shift. No diabetic sx noted. 15 min checks completed thru the night. CTM for changes.
[2017-01-15 08:46] VITALS: BP 130/86; PULSE 95; RESP 16
--- NOTE | 2017-01-15 14:34 | NUR ---
Head Start Assistant Teacher/Counselor S:"I'm going home tonight at 8." O: Patient denied any SI and HI. No AVH and no depression or anxiety. A: Patient did not want to come out of her room for lunch, due to fear of being locked out again. She stated twice that she was going to go home today. She was very insistent. She was slightly irritated at the questions being asked, and remained in bed until after lunchtime. P: Follow care plan and coordinate with outpatient providers and family.
--- NOTE | 2017-01-15 17:30 | NUR ---
Nurses Medication Patients' Metformin 1000mg withheld as patient has refused lunch and dinner.
--- NOTE | 2017-01-15 18:25 | NUR ---
NURS Note DAY Mood: "I'm tired." Denies depression, anxiety. Affect: Well-modulated. Thought Process/Content: "Stop insisting that I eat lunch." Denies SI, HI. Denies AH, VH. Behavior: Pt spent much of shift in bed. Up walking when sons visited. Pleasant and appropriate with staff. PRNs/NURS: Ate breakfast. Refused lunch, dinner, and snacks. Withheld dinnertime metformin because pt had not eaten since breakfast and had a dinnertime BG of 96.
--- NOTE | 2017-01-15 20:10 | NUR ---
[facility] Note D- Patient attended morning meeting only. She was unable to participate due to her language barrier. She did not attend any overt ADLs and appears unkempt. She ate breakfast only but declined lunch and dinner stating "I don't want it and I don't want you!" A- Patient has been in bed all shift. She is unable to engage with this lens gauger due to language barrier. She is also reluctant to attempt to engage, like when asked if she was hungry. See RN note regarding the use of the horse identifier. P-Continue current treatment plan.
--- NOTE | 2017-01-15 21:48 | PCM.PNPSY ---
Subjective Date of Service Jan 15, 2017 Subjective The patient is seen with a window display designer today. The patient reports that she is doing "fine." The patient reports that she is leaving at 8 PM today. When informed this is not occurring as she is detained she states that she is leaving at 10 PM today. She denies side effects and reports that the medication is helping her symptoms and that she revealed to take this medication on discharge. The family visited later in the day and reported that the patient is doing well and if she continues to take this medication they believe that she can be managed in the home. Sleep: 9+ hours Appetite: Patient reports that there is no problem but did not eat lunch or dinner. Suicidal and homicidal ideation: Denies Auditory hallucinations/Visual hallucinations: Denies today Other Psychotic Symptoms: Appears to not understand that she is detained at times and cannot leave and laughs spontaneously due to unclear stimuli Anxiety: Denies Depression: Denies Mental Status Exam Appearance: Unkept Attitude: Pleasant, Guarded Behavior: Other (isolating and staying in bed, laughing to self at times) Affect: Well Modulated/Appropriate, Other Mood: Euthymic Thought Process/Associations: Loose (at times) Speech Production: Normal Speech Rate: Normal Speech Articulation: Normal Thought Content: Somatic preoccupation, Suspicious Danger to Self/Suicidal Ideati: None Danger to Others: None Delusions: Paranoid (Endorses) Hallucinations: Auditory (Denies), Visual (Denies) Consciousness: Alert Orientation: Person, Place, Situation Memory: Short Term Memory (Impaired), Snf Memory (Impaired) Estimate Intellectual Function: Average Basis for IQ estimate: Word use/vocabulary, Educational history Attention/Concentration & Cogn: Impaired Insight: Limited Judgement: Limited Mental Health Plan The patient is a 66-year-old female with a history of schizophrenia who presents with symptom exacerbation. The patient has not been in active treatment of any kind for some time. It is unclear what exact medication she was taking it appears that the patient was most recently taking metformin and risperidone. According to family members the long-acting risperidone injection appeared to be of little effect. The patient endorsed using quetiapine and felt that this was useful in the past. She was agreeable to restarting this medication and indicated that it is so far making her feel calmer and she is less paranoid. The patient remains delusional, but is more pleasant, cooperative and less suspicious. Given report of patient's reluctance to take medications with side effects will allow to stabilize before increasing further. The patient is agreeable to further inpatient treatment to stabilize her condition. Encouraging patient to shower, eat meals routinely. Given the patient's history of medication nonadherence and her ongoing symptomology, the patient would likely benefit from a less restrictive alternative if this can be arranged. [place] AXIS I Schizophrenia, chronic paranoid type. AXIS II Deferred. AXIS III History of diabetes by report AXIS IV Moderate. AXIS V Global Assessment of Functioning is 30. Medications Quetiapine 300 mg nightly Metformin 1000 mg twice daily Lorazepam 1 mg every 4 hours as needed for anxiety or agitation Treatments 1. The patient will be admitted to the [facility] and provided a safe and secure environment. 2. The patient is currently denying suicidality and is not in need of a one- to-one at this time. 3. The patient is encouraged to participate in group and milieu activities. 4. The patient will be seen by the treatment team on a daily basis to assess symptoms, side effects and response to treatment. 5. Quetiapine will be continued at 300 mg nightly to better address psychosis and reduce sedation. Consider increasing dose of note further improvement. 6. The patient will be provided lorazepam 1 mg every 4 hours as needed for anxiety or agitation. 7. Zolpidem 5 mg nightly as needed for insomnia. 8. According to family the patient has been out of treatment for at least 6 months and typically avoids medications with side effects will therefore titrate cautiously to avoid side effects. 9. Continue [id number] mg twice daily. 10. In house, energy auditor will be used for interviews. 11. Anticipated length of stay is 10-14 days and would benefit from a 90 day less restrictive order. Rohan Moran MD Jan 15, 2017 21:47
--- NOTE | 2017-01-16 06:57 | NUR ---
Nursing notes: retail shift supervisor Patient appears to be sleeping, resting quietly on safety checks during the night. Voices no complaints.
[2017-01-16 11:00] VITALS: BP 132/88; PULSE 90; RESP 18
--- NOTE | 2017-01-16 14:41 | NUR ---
Nursing Note [id number] Behavior S/O: Pt took am medications as ordered. Metformin held d/t pt refused lunch & dinner yesterday. Blood sugar this am was 93. Pt has refused to come out of her room today. She has refused breakfast & lunch. Pt told psychiatrist thru public health analyst, "I think the food is poisoned....I don't want that [Ensure]....I'll eat in my room." Pt denies audio hallucinations, suicidal/homicidal ideation. Pt drank Ensure that was left in room, but she wheeled out her lunch tray that was brought into her room. She didn't eat anything. A: Pt con't to have delusions about the food being poisoned. P: Provide supportive environment. Monitor medications & effects. Addendum: 01/16/17 at 1738 by DORIAN VALADEZ RN Pt's metformin held at 1700 d/t pt has not been eating. Pt has refused dinner.
--- NOTE | 2017-01-16 17:51 | PCM.PNPSY ---
Subjective Date of Service Jan 16, 2017 Subjective The patient is seen with a weave room supervisor today. The patient reports that she is doing "fine." The patient has not eaten for over 24 hours. She denies this and reports that she has had cantaloupe and grapes although staff report this did not occur. Staff brought her ensure while the interview with the development coach was occurring and the patient reported that it was poisoned and she would not drink it. She states the reason she has not been eating as a fear that her food is been poisoned. She reports drinking fluids and urinating 3-4 times per day. She stated that she would eat food that were in her room but feels uncomfortable around others. Later the patient did eat a portion of her lunch when brought to her room and drank some of the ensure. The patient has not been using as needed medications and denies any side effects. Sleep: 7.5+ hours Appetite: Patient reports that there is no problem but did not eat since lunch yesterday. Suicidal and homicidal ideation: Denies Auditory hallucinations/Visual hallucinations: Denies today Other Psychotic Symptoms: Endorses feeling that food is poisoned. Anxiety: Denies Depression: Denies Mental Status Exam Vital Signs Vital Signs Date Time Temp Pulse Resp B/P Pulse Ox O2 Delivery O2 Flow Rate FiO2 01/16/17 11:00 36.3 90 18 132/88 Appearance: Unkept Attitude: Pleasant, Guarded Behavior: Other (isolating and staying in bed, somewhat irritable today) Affect: Well Modulated/Appropriate, Other Mood: Irritable Thought Process/Associations: Other (poverty of speech) Speech Production: Normal Speech Rate: Normal Speech Articulation: Normal Thought Content: Somatic preoccupation, Suspicious Danger to Self/Suicidal Ideati: None Danger to Others: None Delusions: Paranoid (Endorses) Hallucinations: Auditory (Denies), Visual (Denies) Consciousness: Alert Orientation: Person, Place, Situation Memory: Short Term Memory (Impaired), Family Medicine Physician Assistant Memory (Impaired) Estimate Intellectual Function: Average Basis for IQ estimate: Word use/vocabulary, Educational history Attention/Concentration & Cogn: Impaired Insight: Limited Judgement: Limited Mental Health Plan The patient is a 66-year-old female with a history of schizophrenia who presents with symptom exacerbation. The patient has not been in active treatment of any kind for some time. It is unclear what exact medication she was taking it appears that the patient was most recently taking metformin and risperidone. According to family members the long-acting risperidone injection appeared to be of little effect. The patient endorsed using quetiapine and felt that this was useful in the past. She was agreeable to restarting this medication and indicated that it is so far making her feel calmer and she is less paranoid. The patient remains delusional, but is more pleasant, cooperative and less suspicious. Given report of patient's reluctance to take medications with side effects the patient was continued on quetiapine 300 mg nightly. Over the last several days the patient is experienced worsening paranoia and is now refusing food except when brought to the room as noted above. This is resulted in a need to hold her metformin to prevent hypoglycemia. The patient denies being diabetic. As the patient appears to have had worsening symptoms will need to increase quetiapine. [place] AXIS I Schizophrenia, chronic paranoid type. AXIS II Deferred. AXIS III History of diabetes by report AXIS IV Moderate. AXIS V Global Assessment of Functioning is 30. Medications Quetiapine 400 mg nightly Metformin 1000 mg twice daily Lorazepam 1 mg every 4 hours as needed for anxiety or agitation Treatments 1. [facility] and provided a safe and secure environment. 2. The patient is currently denying suicidality and is not in need of a one- to-one at this time. 3. The patient is encouraged to participate in group and milieu activities. 4. The patient will be seen by the treatment team on a daily basis to assess symptoms, side effects and response to treatment. 5. Quetiapine will be increased to 400 mg nightly 6. The patient will be provided lorazepam 1 mg every 4 hours as needed for anxiety or agitation. 7. Zolpidem 5 mg nightly as needed for insomnia. 8. According to family the patient has been out of treatment for at least 6 months and typically avoids medications with side effects will therefore titrate cautiously to avoid side effects. 9. Continue [id number] mg twice daily. 10. In house, chief of harbor patrol will be used for interviews. 11. Anticipated length of stay is 10-14 days and would benefit from a 90 day less restrictive order although may need more inpatient time to stabilize prior to discharge. Rohan Moran MD Jan 16, 2017 17:51
--- NOTE | 2017-01-16 17:51 | NUR ---
Observations 0900 - 2130 Pt was in bed when the shift started and she remained in bed and was isolative all day. Pt was very short when approached and spoke in hungarian. Pt speech was poor due to language barrier. Pt maintained behavior throughout the shift. Pt was offered snack but she declined. Pt refused to eat her meals today but she did drink an ensure. Pt was offered a shower but she refused. Pt was observed every 15 minutes through the night as ordered.
--- NOTE | 2017-01-17 05:31 | NUR ---
Sleep Pt has isolated in her room and slept all shift. She has had over 9.5 hours. Addendum: 01/17/17 at 0537 by MARTINEZ KWAN RN Marquita held d/t pt refusing meals. She took her scheduled HS [place].
--- NOTE | 2017-01-17 08:26 | NUR ---
NURS MED NOTE Metformin withheld due to blood glucose 130 mg/dL and patient refusing food. Per [employer], precautions for metformin include: "Hypoglycemia may occur with insufficient calorie intake, strenuous exercise, or concomitant use of hypoglycemic agents or ethanol; increased risk in elderly, debilitated, or malnourished patients and those with adrenal or pituitary insufficiency."
[2017-01-17 11:02] VITALS: BP 123/72; PULSE 85; RESP 24
--- NOTE | 2017-01-17 13:57 | NUR ---
NURS Note DAYSHIFT Mood: "I'm fine." Denies anxiety, depression. Affect: Well-modulated. Behavior: Pt in bed all shift. Thought Content/Process: "The man, Wilman Ge is walking the halls here." "Leave me alone. I am resting." Unclear of who Wilman Ge is or relation to pt. Denies thoughts that the food is poisoned. Denies AH, VH. Denies SI, HI. PRN/NURS Notes: Pt refused breakfast and lunch; at 1050, ate some melon from a fruit plate refused by another pt. BG 130. Withheld AM metformin due to pts food refusal.
--- NOTE | 2017-01-17 16:32 | NUR ---
Brake Adjuster/Counselor S:"I"m fine.I'm going home at 1 today." O:Patient did not report any SI or HI, no AVH and no anxiety or depression. Patient slept for 9.5 hours. A: Patient remained in her room for the day. She did eat some food, and insisted that she was going home at 1pm today. P:Follow care plan and coordinate with outpatient providers.
--- NOTE | 2017-01-17 21:29 | NUR ---
NURSING NOTE [id number] Mood: "good, tired, good" *smiles* Affect: mostly pleasant, becomes dismissive and uncooperative when staff requests she perform basic tasks (e.g. eat, get out of bed, sit up to visit w/her family) Behavior: pt. continues to lie in bed and has not been seen getting OOB except to toilet, once, this shift. Pt. refused dinner but did eat some fruit and crackers. FSBS at dinner was 181, Metformin given at that time with more crackers which she ate. Pt's son came to visit and pt. pointed to the spare bed in her room and insisted he come in and sit in the bed to visit her. This rewriter encouraged her to get OOB for the visit (with assurances that staff would not lock her door) but pt. then snapped "I'm tired" and shut her eyes abruptly as though she were sleeping. Pt's son visited in doorway, per unit policy. Pt. was med compliant at . Thought processes: pt. denies all issues. Pt. was heard talking to herself in her room twice this shift. She is still paranoid and uncooperative.
--- NOTE | 2017-01-17 22:47 | PCM.PNPSY ---
Subjective Date of Service Jan 17, 2017 Subjective The patient is seen with a wind turbine technician today. The patient reports that she is doing "fine." The patient missed breakfast but is requesting food now. She denies being concerned that her food is poisoned. She stated that she would eat food that were in her room but feels uncomfortable around others. The patient declined being able to eat after others had finished in the day room. "No, I will eat in my room." The patient reports that she believes her is picking her up at 1 or 2pm. She added the non sequitur, "Wilman Welch son can walk." The patient has not been using as needed medications and denies any side effects. Sleep: 9.5+ hours Appetite: Reports appetite returning Suicidal and homicidal ideation: Denies Auditory hallucinations/Visual hallucinations: Denies today Other Psychotic Symptoms: Denies food is poisoned, but not leaving room Anxiety: Denies Depression: Denies Current Medications Current Medications Quetiapine Fumarate 400 mg HS PO Last administered on 01/17/17t 20:19; Admin Dose 400 MG; Start 01/16/17 at 21:00 Mental Status Exam Appearance: Unkept Attitude: Pleasant, Guarded Behavior: Other (isolating and staying in bed, somewhat irritable today) Affect: Well Modulated/Appropriate, Other Mood: Irritable Thought Process/Associations: Other (poverty of speech) Speech Production: Normal Speech Rate: Normal Speech Articulation: Normal Thought Content: Somatic preoccupation, Suspicious Danger to Self/Suicidal Ideati: None Danger to Others: None Delusions: Paranoid (Endorses) Hallucinations: Auditory (Denies), Visual (Denies) Consciousness: Alert Orientation: Person, Place, Situation Memory: Short Term Memory (Impaired), Extract [place] Memory (Impaired) Estimate Intellectual Function: Average Basis for IQ estimate: Word use/vocabulary, Educational history Attention/Concentration & Cogn: Impaired Insight: Limited Judgement: Limited Mental Health Plan The patient is a 66-year-old female with a history of schizophrenia who presents with symptom exacerbation. The patient has not been in active treatment of any kind for some time. It is unclear what exact medication she was taking it appears that the patient was most recently taking metformin and risperidone. According to family members the long-acting risperidone injection appeared to be of little effect. The patient endorsed using quetiapine and felt that this was useful in the past. She was agreeable to restarting this medication and indicated that it is so far making her feel calmer and she is less paranoid. The patient remains delusional, but is more pleasant, cooperative and less suspicious. Given report of patient's reluctance to take medications with side effects the patient was continued on quetiapine 300 mg nightly. The patient is less paranoid today, but is still isolating and somewhat irritable. Eating food again, but only in room. [place] AXIS I Schizophrenia, chronic paranoid type. AXIS II Deferred. AXIS III History of diabetes by report AXIS IV Moderate. AXIS V Global Assessment of Functioning is 30. Medications Quetiapine 400 mg nightly Metformin 1000 mg twice daily Lorazepam 1 mg every 4 hours as needed for anxiety or agitation Treatments 1. The patient will be admitted to the [facility] and provided a safe and secure environment. 2. The patient is currently denying suicidality and is not in need of a one- to-one at this time. 3. The patient is encouraged to participate in group and milieu activities. 4. The patient will be seen by the treatment team on a daily basis to assess symptoms, side effects and response to treatment. 5. Quetiapine will be increased to 400 mg nightly 6. The patient will be provided lorazepam 1 mg every 4 hours as needed for anxiety or agitation. 7. Zolpidem 5 mg nightly as needed for insomnia. 8. According to family the patient has been out of treatment for at least 6 months and typically avoids medications with side effects will therefore titrate cautiously to avoid side effects. 9. Continue [id number] mg twice daily. 10. In house, agriculture inspector will be used for interviews. 11. Anticipated length of stay is 10-14 days and would benefit from a 90 day less restrictive order although may need more inpatient time to stabilize prior to discharge. Rohan Moran MD Jan 17, 2017 22:46 Rohan Moran MD Jan 17, 2017 22:46
--- NOTE | 2017-01-18 13:15 | NUR ---
NURS Note Mood: Irritable. Affect: Irritable. Behavior: Pt has been in room, in bed since start of shift. Pt reports that she gets up and qlak around her room. Dismissive and uncooperative with staff requests. Thought Content/Process: "Leave me in peace." PRN/NURS Notes: Breakfast BG 131, took metformin as prescribed. Ate mandarin orange fruit cup for breakfast. Pt refused to come to medication room to record weight. Last BM, yesterday per pt report. Denies vomiting. Addendum: 01/18/17 at 1432 by SHREE GORDON RN Pt ate a few bites of pork, fruit cup, and low-fat milk for lunch; drank strawberry ensure at 1400. Put in order for strawberry ensure with each meal. Pt has eaten all meals in room and continue to refuse to get up or leave. Assessed pt's legs for s/s of DVT; no edema, redness, or pain in either leg. Pt was more pleasant this afternoon than in the morning.
--- NOTE | 2017-01-18 16:14 | NUR ---
Channel Executive/Counselor S:"I am comfortable in my room." O: Patient did not express any SI, HI, AVH and no depression or anxiety. A: Patient has refused to leave her room, and has only eaten the fruit off her tray. When asked why she would not come out of her room, she stated that she was comfortable there and saw no reason to leave. She refused to join other patients in the day room, and has not even come out to walk the hallways. Patient stated she gets exercise in her room. She was pleasant and cooperative but laughed at the questions from the dr in regards to SI/HI etc. P: Follow care plan and coordinate with outpatient providers.
[2017-01-18 16:33] VITALS: BP 144/85; PULSE 85; RESP 16
--- NOTE | 2017-01-18 20:41 | NUR ---
Obs Dayshift Pt remained in bed all shift only sat up for meals. Brkf pt ate approx 15%, Lunch approx 50%, and dinner approx 50%. Family visited this evening, pt remained in bed the entire visit talking to her sons. Pt declined to get up and attend court or any group. Declines any assistance from staff. Poor participation. Poor ADL's
--- NOTE | 2017-01-18 21:24 | PCM.PNPSY ---
Subjective Date of Service Jan 18, 2017 Subjective The patient is seen with a seconds handler today. The patient reports that she is doing "fine." The patient at the fruit from her breakfast but did not eat anything else. She denies being concerned that her food is poisoned. She stated that she would eat food that were in her room but feels uncomfortable around others. The patient states that she does not want to leave her room, but will not say why and states she would prefer to just walk in her room. The patient has not been using as needed medications and denies any side effects. Sleep: 10+ hours Appetite: Reports appetite reduced Suicidal and homicidal ideation: Denies Auditory hallucinations/Visual hallucinations: Denies today Other Psychotic Symptoms: Denies food is poisoned, but not leaving room Anxiety: Denies Depression: Denies Mental Status Exam Vital Signs Vital Signs Date Time Temp Pulse Resp B/P Pulse Ox O2 Delivery O2 Flow Rate FiO2 01/18/17 16:33 36.1 85 16 144/85 Appearance: Unkept Attitude: Pleasant, Guarded Behavior: Other (isolating and staying in bed) Affect: Well Modulated/Appropriate, Other Mood: Irritable Thought Process/Associations: Other (poverty of speech) Speech Production: Normal Speech Rate: Normal Speech Articulation: Normal Thought Content: Somatic preoccupation, Suspicious Danger to Self/Suicidal Ideati: None Danger to Others: None Delusions: Paranoid (Endorses) Hallucinations: Auditory (Denies), Visual (Denies) Consciousness: Alert Orientation: Person, Place, Situation Memory: Short Term Memory (Impaired), Penitentiary Memory (Impaired) Estimate Intellectual Function: Average Basis for IQ estimate: Word use/vocabulary, Educational history Attention/Concentration & Cogn: Impaired Insight: Limited Judgement: Limited Mental Health Plan The patient is a 66-year-old female with a history of schizophrenia who presents with symptom exacerbation. The patient has not been in active treatment of any kind for some time. It is unclear what exact medication she was taking it appears that the patient was most recently taking metformin and risperidone. According to family members the long-acting risperidone injection appeared to be of little effect. The patient endorsed using quetiapine and felt that this was useful in the past. She was agreeable to restarting this medication and indicated that it is so far making her feel calmer and she is less paranoid. The patient remains delusional, but is more pleasant, cooperative and less suspicious. Given report of patient's reluctance to take medications with side effects the patient was continued on quetiapine 300 mg nightly; however, due to increased delusions, quetiapine increased to 400mg and patient has reported resolution of delusion of being poisoned. The patient is less paranoid today, but is still isolating though less irritable. Eating food again, but only in room. [place] AXIS I Schizophrenia, chronic paranoid type. AXIS II Deferred. AXIS III History of diabetes by report AXIS IV Moderate. AXIS V Global Assessment of Functioning is 30. Medications Quetiapine 400 mg nightly Metformin 1000 mg twice daily Lorazepam 1 mg every 4 hours as needed for anxiety or agitation Treatments 1. The patient will be admitted to the [facility] and provided a safe and secure environment. 2. The patient is currently denying suicidality and is not in need of a one- to-one at this time. 3. The patient is encouraged to participate in group and milieu activities. 4. The patient will be seen by the treatment team on a daily basis to assess symptoms, side effects and response to treatment. 5. Quetiapine 400 mg nightly 6. The patient will be provided lorazepam 1 mg every 4 hours as needed for anxiety or agitation. 7. Zolpidem 5 mg nightly as needed for insomnia. 8. According to family the patient has been out of treatment for at least 6 months and typically avoids medications with side effects will therefore titrate cautiously to avoid side effects. 9. Continue [id number] mg twice daily, may need to hold while eating less. 10. In house, stave and bolt equalizer will be used for interviews. 11. Anticipated length of stay is 10-14 days and would benefit from a 90 day less restrictive order although may need more inpatient time to stabilize prior to discharge. Rohan Moran MD Jan 18, 2017 21:24
--- NOTE | 2017-01-19 06:52 | NUR ---
Sleep Adequate sleep through the night with no noted distress per protocol checks. Total sleep over 8 hours.
--- NOTE | 2017-01-19 12:34 | NUR ---
nursing: Pt was awake for BG, smiling and cooperative. BG was 163. Ate about 40-50% of her lunch and has been up more, looking out the window but still staying in her bedroom.
--- NOTE | 2017-01-19 12:41 | NUR ---
Obs Dayshift Pt is more awake today, continues to refuse to come out of her room but is up more. Getting out of bed to eat if her food is brought to her, standing and looking out her window. Doing her ADL's in her room. Smiling when staff approach, polite, and attempts to engage in conversation.
--- NOTE | 2017-01-19 16:32 | PCM.PNPSY ---
Subjective Date of Service Jan 19, 2017 Subjective Interview was conducted via tele-translation. Upon entering the room patient is lying in bed speaking on the phone in an animated and pleasant fashion. She terminated her phone call and pleasantly conversed. Speech was normal speed with normal content. Patient reports that she enjoys the hamburger here and denies thoughts of food being poisoned although admits that her medication makes her mouth "sour" and food "bitter". Patient continues to refuse to leave her room stating that she is, "really happy and comfortable". Affect was normal with good eye contact. Patient was more communicative today sharing that she feels much better after speaking with her and son on the phone. She stated that she had a son of pneumonia when they lived in [place] but that her 4 other sons and 2 daughters have been healthy largely in part to her providing a "healthy diet". Patient also reported that all members of the treatment team would benefit from seeing a psychologist and gave specific dietary tips to each individual. Patient endorses that she will be ready to leave next week. Sleep: Over 8 hours Appetite: Improved but still decreased Suicidal and homicidal ideation: Denies Auditory hallucinations: Denies Visual hallucinations: Denies Other Psychotic Symptoms: paranoia as noted above. Anxiety: Denies (0/10) Depression: Denies (0/10) Mental Status Exam Appearance: Unkept Attitude: Pleasant, Guarded Behavior: Other (Continues to isolate but increased communication) Affect: Well Modulated/Appropriate, Other Mood: Other (Elevated) Thought Process/Associations: Other (Thoughts surrounding health, food, and happiness) Speech Production: Abundant Speech Rate: Normal Speech Articulation: Normal Thought Content: Somatic preoccupation (Health particularly in relation to food and the effect on her person) Danger to Self/Suicidal Ideati: None Danger to Others: None Delusions: Paranoid (Denies, paranoid of food) Hallucinations: Auditory (Denies), Visual (Denies) Consciousness: Alert Orientation: Person, Place, Situation Memory: Short Term Memory (Impaired), Jail Memory (Impaired) Estimate Intellectual Function: Average Basis for IQ estimate: Word use/vocabulary, Educational history Attention/Concentration & Cogn: Grossly Intact Insight: Limited Judgement: Limited Mental Health Plan The patient is a 66-year-old female with a history of schizophrenia who presents with symptom exacerbation. The patient has not been in active treatment of any kind for some time. It is unclear what exact medication she was taking it appears that the patient was most recently taking metformin and risperidone. According to family members the long-acting risperidone injection appeared to be of little effect. The patient endorsed using quetiapine and felt that this was useful in the past. She was agreeable to restarting this medication and indicated that it is so far making her feel calmer and she is less paranoid. The patient denies delusions of food being poisoned but continues to remain in her room and only wanting to eat select food. She is more pleasant, cooperative and less suspicious than upon admission. Given report of patient's reluctance to take medications with side effects the patient was continued on quetiapine 300 mg nightly; however, due to increased delusions, quetiapine increased to 400mg and patient has reported resolution of delusion of being poisoned. [place] AXIS I Schizophrenia, chronic paranoid type. AXIS II Deferred. AXIS III History of diabetes by report AXIS IV Moderate. AXIS V Global Assessment of Functioning is 30. Medications Quetiapine 400 mg nightly Metformin 1000 mg twice daily Lorazepam 1 mg every 4 hours as needed for anxiety or agitation Treatments 1. The patient will be admitted to the [facility] and provided a safe and secure environment. 2. The patient is currently denying suicidality and is not in need of a one- to-one at this time. 3. The patient is encouraged to participate in group and milieu activities. 4. The patient will be seen by the treatment team on a daily basis to assess symptoms, side effects and response to treatment. 5. Quetiapine 400 mg nightly 6. The patient will be provided lorazepam 1 mg every 4 hours as needed for anxiety or agitation. 7. Zolpidem 5 mg nightly as needed for insomnia. 8. According to family the patient has been out of treatment for at least 6 months and typically avoids medications with side effects will therefore titrate cautiously to avoid side effects. 9. Continue [id number] mg twice daily, may need to hold while eating less. 10. In house, nursing informatics clinical analyst will be used for interviews. 11. Anticipated length of stay is 10-14 days and would benefit from a 90 day less restrictive order although may need more inpatient time to stabilize prior to discharge. 12. Be watchful for possible developing symptoms of whitley. Attending Statement The patient was seen and examined together with Dr. Yousif on 01/19/17 and I have added additional information to the note above. Gay Workman DO Jan 19, 2017 16:32 Rohan Moran MD Jan 19, 2017 17:17
--- NOTE | 2017-01-19 18:30 | NUR ---
cook manager/Counselor: S: "I stay in my bed because it's comfortable. I'm really happy and comfortable here!" O: Patient slept 8+ last night per staff. Patient denies S/I and H/I. She also denies auditory and visual hallucinations. Depression is 0/10 and anxiety is 0/10. Patient stated the reason she wasn't eating her food after admission is because "the pills I take make my mouth taste sour, so when I eat the food, it is bitter." A: Patient is cooperative, pleasant, guarded, isolative, paranoid at times, limited insight, limited judgment. P: Follow care plan, coordinate with out-patient providers, monitor behavior.
--- NOTE | 2017-01-19 21:53 | NUR ---
Nurses Note Evening Patient has remained in her room this shift. Her hygiene has been poor refusing to shower. Her appetite has been slightly improved from yesterday eating 75% of her dinner tonight in her room with her son present. Patient initially refused her HS medications but did accept them with a carton of milk when approached a second time. Will continue to maintain q 15min. checks for safety and support. Addendum: 01/19/17 at 2158 by GEOVANNY FARMER RN Amended: Links added.
--- NOTE | 2017-01-20 04:54 | NUR ---
nursing, nights, 11-7 s/o- has appeared to sleep after 2315 during q 15 minute assessments. a- no apparent distress. p- monitor behavior/emotional state, quality, times and amount of sleep, use and effect of medication. selwyn
[2017-01-20 08:30] VITALS: BP 126/74; PULSE 91; RESP 17
--- NOTE | 2017-01-20 13:20 | NUR ---
NURS Note Mood: Denies depression, anxiety. Affect: Well-modulated. Thought Process/Content: "I'm fine. I'm just tired. Let me rest." Denies AH, VH. Denies SI, HI. Behavior: Pt in bed, isolating in room all morning. Did not attend groups. Refuses to get out of bed. PRNs/NURS: Breakfast BG 159; ate fruit cup. Lunch, orange sherbert.
--- NOTE | 2017-01-20 18:00 | NUR ---
Observations 2064-2012 Pt remained in bed all of shift. Meals were provided in her room, pt had limited communication with staff. Pt ate fruit only for breakfast, nothing for lunch, and some dinner. Pt was encouraged to come out of room but did not leave her room all day. Pt was observed every 15 minutes of shift as directed.
--- NOTE | 2017-01-20 18:28 | PCM.PNPSY ---
Subjective Date of Service Jan 20, 2017 Subjective Patient is lying in bed, awake, upon entering the room. Interview was conducted with an on-bakery worker. Patient continues to be communicative and pleasant. She continues to refuse to leave her room but denies thoughts of food being poisoned. She continues to be selective of her food choice and complain of a bitter taste in her mouth. Patient requested broccoli and fruit. When it was explained that the Metformin may be the cause of the bitterness and that it may be possible to change to a diabetes medication that would not have this side effect, patient stated that it "didn't matter, all medication does that." Sleep: 7+ hours Appetite: Improved but selective Suicidal and homicidal ideation: denies Auditory hallucinations: denies Visual hallucinations: denies Other Psychotic Symptoms: denies (see above for sx of paranoia) Anxiety: denies Depression: denies Mental Status Exam Appearance: Unkept Attitude: Pleasant, Guarded Behavior: Other (Continues to isolate but increased communication) Affect: Well Modulated/Appropriate, Other (Laughs inappropriately at times.) Mood: Euthymic Thought Process/Associations: Logical/Sequential, Other Speech Production: Normal Speech Rate: Normal Speech Articulation: Normal Thought Content: Appropriate, Somatic preoccupation Danger to Self/Suicidal Ideati: None Danger to Others: None Delusions: Paranoid (Denies, paranoid of food) Hallucinations: Auditory (Denies), Visual (Denies) Consciousness: Alert Orientation: Person, Place, Situation Memory: Short Term Memory (Impaired), Group Home Memory (Impaired) Estimate Intellectual Function: Average Basis for IQ estimate: Word use/vocabulary, Educational history Attention/Concentration & Cogn: Grossly Intact Insight: Limited Judgement: Limited Mental Health Plan The patient is a 66-year-old female with a history of schizophrenia who presents with symptom exacerbation. The patient has not been in active treatment of any kind for some time. It is unclear what exact medication she was taking it appears that the patient was most recently taking metformin and risperidone. According to family members the long-acting risperidone injection appeared to be of little effect. The patient endorsed using quetiapine and felt that this was useful in the past. She was agreeable to restarting this medication and indicated that it is so far making her feel calmer and she is less paranoid. The patient denies delusions of food being poisoned but continues to remain in her room. She is more pleasant, cooperative and less suspicious than upon admission. Patient's mood was less elevated than yesterday , no longer worrisome for whitley. Given report of patient's reluctance to take medications with side effects the patient was continued on quetiapine 300 mg nightly; however, due to increased delusions, quetiapine increased to 400mg and patient has reported resolution of delusion of being poisoned. [place] AXIS I Schizophrenia, chronic paranoid type. AXIS II Deferred. AXIS III History of diabetes by report AXIS IV Moderate. AXIS V Global Assessment of Functioning is 35. Medications Quetiapine 400 mg nightly Metformin 1000 mg twice daily Lorazepam 1 mg every 4 hours as needed for anxiety or agitation Treatments 1. The patient will be admitted to the [facility] and provided a safe and secure environment. 2. The patient is currently denying suicidality and is not in need of a one- to-one at this time. 3. The patient is encouraged to participate in group and milieu activities. 4. The patient will be seen by the treatment team on a daily basis to assess symptoms, side effects and response to treatment. 5. Quetiapine 400 mg nightly 6. The patient will be provided lorazepam 1 mg every 4 hours as needed for anxiety or agitation. 7. Zolpidem 5 mg nightly as needed for insomnia. 8. According to family the patient has been out of treatment for at least 6 months and typically avoids medications with side effects will therefore titrate cautiously to avoid side effects. 9. Continue [id number] mg twice daily, may need to hold while eating less. 10. In house, customer support professional will be used for interviews. 11. Anticipated length of stay is 10-14 days and would benefit from a 90 day less restrictive order although may need more inpatient time to stabilize prior to discharge. 12. Be watchful for possible developing symptoms of whitley although today was improved over yesterday. Attending Statement The patient was seen and examined together with Dr. Yousif on 01/20/17 and I have added additional information to the note above. Gay Workman DO Jan 20, 2017 18:28 Rohan Moran MD Jan 20, 2017 23:09
--- NOTE | 2017-01-20 19:51 | NUR ---
marketing production manager/Counselor: S: "I rest really well here." O: Patient slept 7 last night per staff. Patient denies S/I and H/I. She also denies auditory and visual hallucinations. Depression is 0/10 and anxiety is 0/10. When asked her mood, patient stated, "Happy." A: Patient is cooperative, pleasant, guarded, isolative, paranoid at times, limited insight, limited judgment. P: Follow care plan, coordinate with out-patient providers, monitor behavior.
--- NOTE | 2017-01-20 23:11 | NUR ---
Nurses Note Evening Patient remains in her room. Her appetite today has been minimal,refusing dinner except for milk,Glucophage withheld at dinnertime. Patients' hygiene has been poor,refusing to shower or wash her hair. Patient accepted Seroquel 400mg and has been compliant without adverse effects. Will maintain q 15min. checks for safety and support. Addendum: 01/20/17 at 2316 by GEOVANNY FARMER RN Amended: Links added.
--- NOTE | 2017-01-21 04:48 | NUR ---
nursing, nights, 11-7 s/o- has appeared to sleep after 1999 during q 15 minute assessments. a- no apparent distress. p- monitor behavior/emotional state, quality, times and amount of sleep, use and effect of medication. selwyn
[2017-01-21 10:00] VITALS: BP 132/88; PULSE 90; RESP 16
--- NOTE | 2017-01-21 13:40 | PCM.PNPSY ---
Subjective Date of Service Jan 21, 2017 Subjective Patient interview was conducted with an onsite center aisle cashier. Upon entering the room, patient was in bed. She was willing to communicate but rolled over, facing the wall, avoiding face to face with most people in the room (this junior copywriter, Dr. Moran, case making machine operator, lab specialist, and center aisle cashier). This junior copywriter moved into her line of sight and patient maintained good eye contact throughout the interview and making eye contact with other speakers when appropriate. Patient continues to deny food paranoia but be selective of food choice. She states that she walked around her room "many times yesterday" and showered. There is no indication that these events occurred. Patient stated that she was fearful that "the people" want to hurt her including the people in the room. Further questioning revealed that there was another patient on the floor that had entered her room and scared her causing her to believe that person wants to hurt her. When reassured that the individuals in the room did not want to hurt her, patient was accepting of this. Sleep: 9+hours Appetite: Selective Suicidal and homicidal ideation: Denies Auditory hallucinations: Denies Visual hallucinations: Denies Other Psychotic Symptoms: Paranoia as described above Anxiety: Denies Depression: Denies Mental Status Exam Appearance: Unkept Attitude: Pleasant, Guarded Behavior: Other (Continues to isolate, good communication) Affect: Well Modulated/Appropriate Mood: Euthymic Thought Process/Associations: Logical/Sequential, Other Speech Production: Normal Speech Rate: Normal Speech Articulation: Normal Thought Content: Appropriate, Somatic preoccupation Danger to Self/Suicidal Ideati: None Danger to Others: None Delusions: Paranoid (Denies, paranoid of food) Hallucinations: Auditory (Denies), Visual (Denies) Consciousness: Alert Orientation: Person, Place, Situation Memory: Short Term Memory (Impaired), Retirement Memory (Impaired) Estimate Intellectual Function: Average Basis for IQ estimate: Word use/vocabulary, Educational history Attention/Concentration & Cogn: Grossly Intact Insight: Limited Judgement: Limited Mental Health Plan The patient is a 66-year-old female with a history of schizophrenia who presents with symptom exacerbation. The patient has not been in active treatment of any kind for some time. It is unclear what exact medication she was taking it appears that the patient was most recently taking metformin and risperidone. According to family members the long-acting risperidone injection appeared to be of little effect. The patient endorsed using quetiapine and felt that this was useful in the past. She was agreeable to restarting this medication and indicated that it is so far making her feel calmer and she is less paranoid. The patient denies delusions of food being poisoned but continues to remain in her room. She is more pleasant, cooperative and less suspicious than upon admission. Patient's mood appears stable as compared to yesterday: non-manic, non-depressed. Patient report of fear of others on the unit is likely a result of another patient entering her room and making a "clicking noise" with her tongue. After several attempts of explanation as to how to use the call light if another event occurs, patient appeared to understand. Given report of patient's reluctance to take medications with side effects the patient was continued on quetiapine 300 mg nightly; however, due to increased delusions, quetiapine increased to 400mg and patient has reported resolution of delusion of being poisoned. [place] AXIS I Schizophrenia, chronic paranoid type. AXIS II Deferred. AXIS III History of diabetes by report AXIS IV Moderate. AXIS V Global Assessment of Functioning is 35. Medications Quetiapine 400 mg nightly Metformin 1000 mg twice daily Lorazepam 1 mg every 4 hours as needed for anxiety or agitation Treatments 1. The [facility] and provided a safe and secure environment. 2. The patient is currently denying suicidality and is not in need of a one- to-one at this time. 3. The patient is encouraged to participate in group and milieu activities. 4. The patient will be seen by the treatment team on a daily basis to assess symptoms, side effects and response to treatment. 5. Quetiapine 400 mg nightly 6. The patient will be provided lorazepam 1 mg every 4 hours as needed for anxiety or agitation. 7. Zolpidem 5 mg nightly as needed for insomnia. 8. According to family the patient has been out of treatment for at least 6 months and typically avoids medications with side effects will therefore titrate cautiously to avoid side effects. 9. Continue [id number] mg twice daily, may need to hold while eating less. 10. In house, relay adjuster will be used for interviews. 11. Anticipated length of stay is 10-14 days and would benefit from a 90 day less restrictive order although may need more inpatient time to stabilize prior to discharge. 12. Reassess patient's fear of others' intentions of harming her. 13. Discuss with family what is patient's baseline and goals of treatment Attending Statement The patient was seen and examined together with Dr. Yousif on 01/21/17 and I agree with the history, exam and plan as outlined in the note above. Gay Workman DO Jan 21, 2017 13:40 Rohan Moran MD Jan 21, 2017 22:41
--- NOTE | 2017-01-21 14:31 | NUR ---
Nursing Notes [id number] (This note was made by Sea Villeda RN, I currently do not have access to [facility] patient list) S-"I dont hear anything, I dont see anything. I am not hungry and I feel fine and calm. Nothing is wrong with me." O-Pt. makes minimal eye contact when communicating. Speaks clearly with no mumbling and speaks Amharic. Pt. stays in room all morning and afternoon in bed. Pt. had about 5% of breakfast and about 25% for lunch. A-Pt. makes minimal eye contact when communicating. Pt. states everything is going well and has no complains of anything. Pt. states she has family that comes and visits her. Morning scheduled metformin held due to blood sugar being 154 and only eating 5% of her breakfast. P- Follow plan of care, monitor behavior, monitor side effects of medication, safety to Pt. and others. (This note was made by Sea Villeda RN, I currently do not have access to Mental Health Unit patient list)
--- NOTE | 2017-01-22 05:40 | NUR ---
Nursing note: night order selector Patient resting quietly in her room and appears to be sleeping on safety checks during the night. Voices no complaints.
--- NOTE | 2017-01-22 07:34 | NUR ---
NURS NOTE METFORMIN AM metformin withheld. BG 116. Pt refused breakfast and has not eaten since lunch yesterday.
--- NOTE | 2017-01-22 13:08 | NUR ---
NURS NOTE S "I'm fine. Let me rest. I'm tired." O Pt in bed all morning. Ate fruit cup and a few sips of strawberry ensure. BG 116, withheld morning metformin 1000 mg because of low food intake. Pt refused to get out of bed. A Pt continue to isolate and refuse meals. P Continue with behavioral care plan. Encourage eating and walking. Addendum: 01/22/17 at 1658 by SHREE GORDON RN Pt walked the halls with son for at least 30 minutes. Dinner BG 198.
[2017-01-22 15:31] VITALS: BP 120/75; PULSE 82; RESP 15
--- NOTE | 2017-01-22 16:52 | NUR ---
Observations 0900 - 2130 Pt was in bed when the shift started and she remained in bed and was isolative all day. Pt was very short when approached and spoke in greenlandic. Pt speech was poor due to language barrier. Pt maintained behavior throughout the shift. Pt was offered snack but she declined. Pt refused to come out for meals but her meal trays were brought to her room. She ate approximately 25% of breakfast and lunch. Pt was offered a shower but she refused. Pt had two visitors and it appeared to go well. Pt walked and talked with her visitors in the hallway with a smile on her face. Pt was observed every 15 minutes throughout the shift as ordered.
--- NOTE | 2017-01-22 17:05 | PCM.PNPSY ---
Subjective Date of Service Jan 22, 2017 Subjective The patient was seen today with a tele-technical analyst. The patient denied any complaints however she did not eat dinner last night and so metformin was held and her blood sugar was 136. The patient did not eat lunch but instead had one Ensure. She denied feeling that people were trying to poison her or harm her in the hospital or at home. As it was possible that the short side of the unit might be needed for individualized care, she was informed she may have to change rooms. The patient snapped angrily that she would not change rooms. The patient denied side effects or medical issues. Sleep: 8+hours Appetite: As above Suicidal and homicidal ideation: Denies Auditory hallucinations: Denies Visual hallucinations: Denies Other Psychotic Symptoms: Paranoia as described above Anxiety: Denies Depression: Denies Mental Status Exam Vital Signs Vital Signs Date Time Temp Pulse Resp B/P Pulse Ox O2 Delivery O2 Flow Rate FiO2 01/22/17 15:31 36.2 82 15 120/75 Appearance: Unkept Attitude: Pleasant (except when discussing room change then angry), Guarded Behavior: Other (Continues to isolate, good communication) Affect: Well Modulated/Appropriate, Labile Mood: Euthymic Thought Process/Associations: Logical/Sequential Speech Production: Normal Speech Rate: Normal Speech Articulation: Normal Thought Content: Appropriate, Somatic preoccupation, Suspicious Danger to Self/Suicidal Ideati: None Danger to Others: None Delusions: Paranoid (Denies, paranoid of food) Hallucinations: Auditory (Denies), Visual (Denies) Consciousness: Alert Orientation: Person, Place, Situation Memory: Short Term Memory (Impaired), Doctor [employer] Nurse [employer]est[employer] Memory (Impaired) Estimate Intellectual Function: Average Basis for IQ estimate: Word use/vocabulary, Educational history Attention/Concentration & Cogn: Grossly Intact Insight: Limited Judgement: Limited Mental Health Plan The patient is a 66-year-old female with a history of schizophrenia who presents with symptom exacerbation. The patient has not been in active treatment of any kind for some time. It is unclear what exact medication she was taking it appears that the patient was most recently taking metformin and risperidone. According to family members the long-acting risperidone injection appeared to be of little effect. The patient endorsed using quetiapine and felt that this was useful in the past. She was agreeable to restarting this medication and indicated that it is so far making her feel calmer and she is less paranoid. The patient denies delusions of food being poisoned but continues to remain in her room and only wanting to eat select food. She is more pleasant, cooperative and less suspicious than upon admission. Given report of patient's reluctance to take medications with side effects the patient was continued on quetiapine 300 mg nightly; however, due to increased delusions, quetiapine was increased to 400mg and patient has reported resolution of delusion of being poisoned. She has however remained quite isolated and may warrant further titration of quetiapine. [place] AXIS I Schizophrenia, chronic paranoid type. AXIS II Deferred. AXIS III History of diabetes by report AXIS IV Moderate. AXIS V Global Assessment of Functioning is 35. Medications Quetiapine 400 mg nightly Metformin 1000 mg twice daily Lorazepam 1 mg every 4 hours as needed for anxiety or agitation Treatments 1. The patient will be admitted to the [facility] and provided a safe and secure environment. 2. The patient is currently denying suicidality and is not in need of a one- to-one at this time. 3. The patient is encouraged to participate in group and milieu activities. 4. The patient will be seen by the treatment team on a daily basis to assess symptoms, side effects and response to treatment. 5. Quetiapine 400 mg nightly, consider further increase. 6. The patient will be provided lorazepam 1 mg every 4 hours as needed for anxiety or agitation. 7. Zolpidem 5 mg nightly as needed for insomnia. 8. According to family the patient has been out of treatment for at least 6 months and typically avoids medications with side effects will therefore titrate cautiously to avoid side effects. 9. Continue [id number] mg twice daily, may need to hold while eating less. 10. In house, accountant machine processing will be used for interviews whenever available, otherwise tele translation services. 11. Anticipated length of stay is 10-14 days and would benefit from a 90 day less restrictive order although may need more inpatient time to stabilize prior to discharge. 12. Patient may need to be moved and may require additional show of support 13. Discuss with family what is patient's baseline and goals of treatment Rohan Moran MD Jan 22, 2017 17:05
--- NOTE | 2017-01-23 05:51 | NUR ---
nursing, nights, 11-7 s/o- has appeared to sleep after 2100 during q 15 minute assessments. a- no apparent distress. p- monitor behavior/emotional state, quality, times and amount of sleep, use and effect of medication.
--- NOTE | 2017-01-23 15:03 | NUR ---
Nursing Notes [id number] (This note was made by Sea Villeda RN, I currently do not have access to Mental Health Unit patient list) S-"I feel fine I dont want to hurt anyone. Everything is fine and I dont hear anything. I am ok nothing is wrong." O-Pt. in bed this morning. Speaks clearly with no mumbling and speaks Kazakh. Pt. stated wanting to stay in her room after I asked her if she would like to eat breakfast in the dining room. Pt. is dressed but hair is slightly not kept. Pt. ate about 5% of her breakfast and 5% of lunch stating "I am not hungry" after being asked by me if she would prefer different types of food or advised that it is healthy to eat food to stay strong. A-Pt. made eye contact when communicating with me today. Pt. has no complaints of any sort at this time. Morning blood sugar was 184 and scheduled metformin was given. Pt. lying in bed and refused to want to eat with the other Pts. and wanted her food brought into her room. P- Follow plan of care, monitor behavior, monitor side effects of medication, safety to Pt. and others. (This note was made by Sea Villeda RN, I currently do not have access to Mental Health Unit patient list)
--- NOTE | 2017-01-23 17:41 | NUR ---
Observations 0900 - 2130 Pt was in bed when the shift started and she remained in bed and was isolative all day. Pt maintained behavior throughout the shift. Pt was offered snack but she declined. Pt refused to come out for meals but her meal trays were brought to her room. She had a poor appetite today and didnt eat much. Pt was offered a shower but she refused. Pt had a visitor and it appeared to go well. Pt remained in her room the entire shift. Pt was observed every 15 minutes throughout the shift as ordered.
--- NOTE | 2017-01-23 23:46 | PCM.PNPSY ---
Subjective Date of Service Jan 23, 2017 Subjective The patient has been continuing to eat fruit and Ensure. She denied feeling that people were trying to poison her or harm her in the hospital or at home. The patient denied side effects or medical issues. Sleep: 9+hours Appetite: As above Suicidal and homicidal ideation: Denies Auditory hallucinations: Denies Visual hallucinations: Denies Other Psychotic Symptoms: Paranoia as described above Anxiety: Denies Depression: Denies Mental Status Exam Appearance: Unkept Attitude: Pleasant, Guarded Behavior: Other (Continues to isolate, good communication) Affect: Well Modulated/Appropriate Mood: Euthymic Thought Process/Associations: Logical/Sequential Speech Production: Normal Speech Rate: Normal Speech Articulation: Normal Thought Content: Appropriate, Somatic preoccupation, Suspicious Danger to Self/Suicidal Ideati: None Danger to Others: None Delusions: Paranoid (Denies, paranoid of food) Hallucinations: Auditory (Denies), Visual (Denies) Consciousness: Alert Orientation: Person, Place, Situation Memory: Short Term Memory (Impaired), [facility] Memory (Impaired) Estimate Intellectual Function: Average Basis for IQ estimate: Word use/vocabulary, Educational history Attention/Concentration & Cogn: Grossly Intact Insight: Limited Judgement: Limited Mental Health Plan The patient is a 66-year-old female with a history of schizophrenia who presents with symptom exacerbation. The patient has not been in active treatment of any kind for some time. It is unclear what exact medication she was taking it appears that the patient was most recently taking metformin and risperidone. According to family members the long-acting risperidone injection appeared to be of little effect. The patient endorsed using quetiapine and felt that this was useful in the past. She was agreeable to restarting this medication and indicated that it is so far making her feel calmer and she is less paranoid. The patient denies delusions of food being poisoned but continues to remain in her room and only wanting to eat select food. She is more pleasant, cooperative and less suspicious than upon admission. Given report of patient's reluctance to take medications with side effects the patient was continued on quetiapine 300 mg nightly; however, due to increased delusions, quetiapine was increased to 400mg and patient has reported resolution of delusion of being poisoned. She has however remained quite isolated and may warrant further titration of quetiapine. [place] AXIS I Schizophrenia, chronic paranoid type. AXIS II Deferred. AXIS III History of diabetes by report AXIS IV Moderate. AXIS V Global Assessment of Functioning is 35. Medications Quetiapine 400 mg nightly Metformin 1000 mg twice daily Lorazepam 1 mg every 4 hours as needed for anxiety or agitation Treatments 1. The [facility] be [facility] and provided a safe and secure environment. 2. The patient is currently denying suicidality and is not in need of a one- to-one at this time. 3. The patient is encouraged to participate in group and milieu activities. 4. The patient will be seen by the treatment team on a daily basis to assess symptoms, side effects and response to treatment. 5. Quetiapine 400 mg nightly, consider further increase. 6. The patient will be provided lorazepam 1 mg every 4 hours as needed for anxiety or agitation. 7. Zolpidem 5 mg nightly as needed for insomnia. 8. According to family the patient has been out of treatment for at least 6 months and typically avoids medications with side effects will therefore titrate cautiously to avoid side effects. 9. Continue [id number] mg twice daily, may need to hold while eating less. 10. In house, roofing laborer will be used for interviews whenever available, otherwise tele translation services. 11. Anticipated length of stay is 10-14 days and would benefit from a 90 day less restrictive order although may need more inpatient time to stabilize prior to discharge. 12. Patient had previously reported willing to eat hamburger, will order for lunch and dinner with fruit. 13. Discuss with family what is patient's baseline and goals of treatment Rohan Moran MD Jan 23, 2017 23:46
--- NOTE | 2017-01-24 05:34 | NUR ---
[facility] Nursing Note Risk Control Consultant 11pm to 7am Pt asleep at start of shift. Awake at 0130 and did not appear to go back to sleep. Pt would yell "Dimple Buchanan" which translates "close the door" anytime staff opened the door to do face checks. Appeared to toss and turn the remainder of shift. Pt monitored with q15 min face checks for safety, location and accountability
--- NOTE | 2017-01-24 10:06 | NUR ---
nursing: pt woke easily and was compliant for am BG(130) but absolutely refused her Metformin and asked me to leave her room. She continues wrapped up in her covers in bed Addendum: 01/24/17 at 1047 by BIANCA CARBAJAL RN nursing cont'd: Conversation through mosaic technician with and sw: Pt continues to refuse medications saying they are 'bad' and 'poison". She does not like the food saying it is 'no good' and 'sour'. She denies sadness or anxiety and when asked if she wanted to hurt herself: "Of course not". and denies wanting to hurt anyone else. She says she is not scared of that hombre(referring to the MD in the room?).
--- NOTE | 2017-01-24 11:45 | PCM.PNPSY ---
Subjective Date of Service Jan 24, 2017 Subjective Patient interviewed with on-sight medical interpreter. Upon entering the room, patient is lying in bed, wrapped in her blanket. She immediately rolled to face the wall, away from this jingle writer and the others in the room. During the interview she rolled to discontinue eye contact with this jingle writer. She denies feelings of paranoia about poisoning when asked directly but then later states that "the pills are poison and the food is sour", "the medicine hurts me", and that she was not afraid of "him, Allo Joo" (pointed at Dr. Moran). Patient was agitated. Sleep: 2.25hr Appetite: poor Suicidal and homicidal ideation: denies Auditory hallucinations: denies Visual hallucinations: denies Other Psychotic Symptoms: paranoia Anxiety: denies Depression: denies Mental Status Exam Appearance: Unkept Attitude: Guarded, Other (unfriendly but not hostile) Behavior: Other (Continues to isolate, poor communication) Affect: Restricted Mood: Irritable, Fearful Thought Process/Associations: Logical/Sequential Speech Production: Normal Speech Rate: Normal Speech Articulation: Normal Thought Content: Appropriate, Somatic preoccupation, Suspicious Danger to Self/Suicidal Ideati: None Danger to Others: None Delusions: Paranoid (Denies, paranoid of food) Hallucinations: Auditory (Denies), Visual (Denies) Consciousness: Alert Orientation: Person, Place, Situation Memory: Short Term Memory (Impaired), [place] Memory (Impaired) Estimate Intellectual Function: Average Basis for IQ estimate: Word use/vocabulary, Educational history Attention/Concentration & Cogn: Grossly Intact Insight: Limited Judgement: Limited Mental Health Plan The patient is a 66-year-old female with a history of schizophrenia who presents with symptom exacerbation. The patient has not been in active treatment of any kind for some time. It is unclear what exact medication she was taking it appears that the patient was most recently taking metformin and risperidone. According to family members the long-acting risperidone injection appeared to be of little effect. The patient endorsed using quetiapine and felt that this was useful in the past. She was agreeable to restarting this medication and indicated that it is so far making her feel calmer and she is less paranoid. The patient denies delusions of food being poisoned but continues to remain in her room and state that it is "sour". She now reports belief that medications are poisoned. Patient's mood has worsened. Given report of patient's reluctance to take medications with side effects the patient was continued on quetiapine 300 mg nightly; however, due to increased delusions, quetiapine increased to 400mg and patient has reported resolution of delusion of being poisoned. Patient now has refused quetiapine and has had return of paranoia. [place] AXIS I Schizophrenia, chronic paranoid type. AXIS II Deferred. AXIS III History of diabetes by report AXIS IV Moderate. AXIS V Global Assessment of Functioning is 35. Medications Quetiapine 400 mg nightly Metformin 1000 mg twice daily Lorazepam 1 mg every 4 hours as needed for anxiety or agitation Treatments 1. The patient will be admitted to the [facility] and provided a safe and secure environment. 2. The patient is currently denying suicidality and is not in need of a one- to-one at this time. 3. The patient is encouraged to participate in group and milieu activities. 4. The patient will be seen by the treatment team on a daily basis to assess symptoms, side effects and response to treatment. 5. Quetiapine 400 mg nightly, consider further increase. 6. The patient will be provided lorazepam 1 mg every 4 hours as needed for anxiety or agitation. 7. Zolpidem 5 mg nightly as needed for insomnia. 8. According to family the patient has been out of treatment for at least 6 months and typically avoids medications with side effects will therefore titrate cautiously to avoid side effects. 9. Continue [id number] mg twice daily, may need to hold while eating less. 10. In house, lot attendant will be used for interviews whenever available, otherwise tele translation services. 11. Anticipated length of stay is 10-14 days and would benefit from a 90 day less restrictive order although may need more inpatient time to stabilize prior to discharge. 12. Patient had previously reported willing to eat hamburger, but reported it was not good 13. Discuss with family what is patient's baseline and goals of treatment, consider increasing quetiapine if she continues to refuse her medication. Family meeting 01/25/17. 14. Second opinion for medication. If approved will backup quetiapine with olanzapine 10mg IM. Gay Workman DO Jan 24, 2017 11:45 Rohan Moran MD Jan 24, 2017 22:52
--- NOTE | 2017-01-24 15:50 | NUR ---
Perl Programmer/Counselor S: I'm not going to take my medications.They're poison." O: Patient denies any SI or HI, no AVH, and no anxiety or depression. A: Patient stated that she was not going to take her medications as they are poison and not good for her body. She stated her dinner and the food overall tastes bad, and therefore she would not be eating. She became agitated with the staff when asked questions. She denied feeling sick even though she was observed trying to throw up several times on tuesday. A family meeting is scheduled for 01/25/17 with her son. Patient has refused to leave her room and stays in bed most of the day. P:Follow care plan and coordinate with outpatient provider.
--- NOTE | 2017-01-24 16:16 | NUR ---
Observations [id number] Pt isolated to room all day, did not come out of room at all. Pt language barrier makes it difficult to communicate with pt. Pt was provided all meals in her room, ate 20% of breakfast, 0% of lunch. Pt not showering, not requesting to do laundry. She is also not attending groups or socializing with peers. Pt was observed every 15 minutes of shift as directed.
[2017-01-24] MEDS ORDERED: diphenhydrAMINE 25 mg Capsule PO PRN (18:40)
--- NOTE | 2017-01-24 22:41 | NUR ---
NURS NOTE [id number] Mood: Irritable. Affect: Angry. Behavior: Pt in bed all of shift. Did not eat dinner. Thought Content/Process: PRN/NURS Notes: Pt initially refused HS Seroquel 100 mg, for which we have a second opinion. Called security for show of support. With security present and video healthcare interpreter staff presented pt with option to take Seroquel 100 mg PO or get an injection with Zyprexa 10 mg IM. Pt refused, when security moved to place hands on pt, pt said "I'll take the pills." Pt took Seroquel 100 mg PO at 2100.
--- NOTE | 2017-01-25 06:03 | NUR ---
Nursing Note Long Term Acute Care Registered Nurse 11pm to 7am Pt asleep at start of shift and remained asleep the duration of the shift. Monitored pt. with q 15 minute face checks for safety location and accountability
[2017-01-25 12:20] VITALS: BP 130/89; PULSE 92; RESP 16
--- NOTE | 2017-01-25 13:08 | NUR ---
nursing: Pt was compliant with BG(140) and then took her Metformin w/o problem. Later, met with her and her physician and an accounting assistant:after first saying she just wanted to rest, she appeared happy, smiling and became willing to engage. She declined a family visit that had been planned @ 11 am, and family was informed ( was able to talk with most of them). She says she feels protected here and at home. When asked what did she need protection from, tells of a "neighbor who has threatened to kill me...but that is never going to happen because I will come to the hospital to care for me and get all my pills." When asked what she had for breakfast she was able to say and this was confirmed. Today she denies thinking her food is poison: "I'm not concerned about that. I only eat what I like." When asked if she will continue taking her meds she said yes. She said someone was in earlier to have her sign papers "But I said no." She then described people who were trying to get her and her family members to sign papers to try and get their property. She had no questions for us. She volunteered that she had been walking (a few days ago) and she was encouraged to do so more, and she says 'maybe later' and she was shown where the call button was, and that we would walk with her and she verbalizes understanding. For lunch we tried to entice her out of her room to eat but she declined. Her tray was saved and will enlist the support of her family when they come to visit this afternoon. She has stayed in her bed the rest of the shift.
--- NOTE | 2017-01-25 15:42 | NUR ---
Warehouse Shipping Associate/Counselor S:" I want to rest, let me sleep." O: Patient denied any SI, HI, AVH, no depression or anxiety. A: Patient stated that she did not think the food was poisoned, and that she'll only eat what she likes. She stated that she will take her medications, and wanted to be left alone to rest. She wanted to cancel a family meeting that was set for 11am. Staff and Dr were still able to meet with family, and her son stated they will return for visiting hours. Her prior vomiting was suspected to be due to trying to purge the medications from her body. Family requested another meeting for , 01/27/2017, and is hoping to speak to the patient about it tonight. P:Follow care plan and coordinate with outpatient providers.
--- NOTE | 2017-01-25 18:16 | PCM.PNPSY ---
Subjective Date of Service Jan 25, 2017 Subjective The patient required a show of force last night but did eventually take oral medications. The bathroom door was locked and there was no note of any retching sounds. The patient was seen with an client solutions director today and immediately states, "what do you want? I want to rest." The patient indicated that she was feeling "a little better" and that she would take medications. She stated that she ate a "chocolate cookie and some milk." The patient reported that she is "happy because I am protected. The neighbors are used to say they were going to kill me with a machete. They will not do that because I will go to the hospital and take some pills." When asked about William Ge from yesterday, the patient states that this individual was a "Roman [employer] trying to get my to sign over property." The patient reports that food tastes better in her mouth today. Sleep: 9.5hr Appetite: Ate some food as above. Suicidal and homicidal ideation: denies Auditory hallucinations: denies Visual hallucinations: denies Other Psychotic Symptoms: denies feeling food is poisoned but isolating to room. Anxiety: Denies Depression: Denies Mental Status Exam Vital Signs Vital Signs Date Time Temp Pulse Resp B/P Pulse Ox O2 Delivery O2 Flow Rate FiO2 01/25/17 12:20 36.2 92 16 130/89 Appearance: Unkept Attitude: Guarded, Other (unfriendly but not hostile) Behavior: Other (Continues to isolate, poor communication) Affect: Restricted Mood: Irritable, Fearful Thought Process/Associations: Logical/Sequential Speech Production: Normal Speech Rate: Normal Speech Articulation: Normal Thought Content: Appropriate, Somatic preoccupation, Suspicious Danger to Self/Suicidal Ideati: None Danger to Others: None Delusions: Paranoid (Denies, paranoid of food) Hallucinations: Auditory (Denies), Visual (Denies) Consciousness: Alert Orientation: Person, Place, Situation Memory: Short Term Memory (Impaired), Usp Memory (Impaired) Estimate Intellectual Function: Average Basis for IQ estimate: Word use/vocabulary, Educational history Attention/Concentration & Cogn: Grossly Intact Insight: Limited Judgement: Limited Mental Health Plan The patient is a 66-year-old female with a history of schizophrenia who presents with symptom exacerbation. The patient has not been in active treatment of any kind for some time. It is unclear what exact medication she was taking it appears that the patient was most recently taking metformin and risperidone. According to family members the long-acting risperidone injection appeared to be of little effect. The patient endorsed using quetiapine and felt that this was useful in the past. She was agreeable to restarting this medication and indicated that it is so far making her feel calmer and she is less paranoid. The patient denies delusions of food being poisoned but continues to remain in her room and state that it is "sour". She now reports belief that medications are poisoned. Patient's mood has worsened. Given report of patient's reluctance to take medications with side effects the patient was continued on quetiapine 300 mg nightly; however, due to increased delusions, quetiapine increased to 400mg and patient has reported resolution of delusion of being poisoned. Patient now has refused quetiapine and has had return of paranoia. It appears that the patient may have been cheeking medications and the door will need to be closed to the bathroom after medication time for at least 1 hour. [place] AXIS I Schizophrenia, chronic paranoid type. AXIS II Deferred. AXIS III History of diabetes by report AXIS IV Moderate. AXIS V Global Assessment of Functioning is 35. Medications Quetiapine 400 mg nightly Metformin 1000 mg twice daily Lorazepam 1 mg every 4 hours as needed for anxiety or agitation Treatments 1. The [facility] and provided a safe and secure environment. 2. The patient is currently denying suicidality and is not in need of a one- to-one at this time. 3. The patient is encouraged to participate in group and milieu activities. 4. The patient will be seen by the treatment team on a daily basis to assess symptoms, side effects and response to treatment. 5. Quetiapine 400 mg nightly, consider further increase. 6. The patient will be provided lorazepam 1 mg every 4 hours as needed for anxiety or agitation. 7. Zolpidem 5 mg nightly as needed for insomnia. 8. According to family the patient has been out of treatment for at least 6 months and typically avoids medications with side effects will therefore titrate cautiously to avoid side effects. 9. Continue [id number] mg twice daily, may need to hold while eating less. 10. In house, men's custom hair piece consultant will be used for interviews whenever available, otherwise tele translation services. 11. Anticipated length of stay is 10-14 days and would benefit from a 90 day less restrictive order although may need more inpatient time to stabilize prior to discharge. 12. Patient will need to be on close medication watch particularly in the evening. 13. Patient declined family meeting but will reschedule for 01/27/2017.. 14. Second opinion for medication. If approved will backup quetiapine with olanzapine 10mg IM. Rohan Moran MD Jan 25, 2017 18:16
--- NOTE | 2017-01-25 18:16 | NUR ---
Observations [id number] Pt remained in room for the entire observed shift. Pt was brought meals, eating about 10% of breakfast, ate about 90% of lunch due to having her family here to encourage her to eat. Pt's family shared with this senior medical writer after visiting with her that they encouraged her to walk around unit, explaining that the more she interacts with others, the better she will get. Family also informed her that isolating to her room is a sign to staff that she is not doing well. Family stated that this was well received by patient and that she agreed she would try. Pt friendly with this senior medical writer upon brining meals into her room. Pt was observed every 15 minutes of shift as directed.
--- NOTE | 2017-01-25 22:32 | NUR ---
NURSING NOTE [id number] Mood: "Fine" Affect: grinning, cheerful, some moments of irritability when asked to leave her room Behavior: pt. has been isolating to room all shift. Her sons visited. She spent much of her time in bed but did get up and walk around her room in circles for exercise for nearly 45 mins at one point. Refused to come out of her room to walk despite much encouragement by staff and family. Requested to have "milk and cookies" -- pt. ate most of a hamburger, drank her milk, and ate a few bites of mashed potatoes. Also ate a serving of popcorn during evening snack. Pt's FSBS at 17:30 was 216. Pt. was med compliant all shift. Bathroom locked for 30 mins after HS med pass. Thought processes: pt. continues to be suspicious and insistent on remaining in her room and becomes agitated when asked to leave her room. Pt. denies any AH/VH/SI or depression this shift.
--- NOTE | 2017-01-26 06:38 | NUR ---
Nursing Note Display Artist 11pm to 7am Pt in bed at start of shift. Throughout the night pt. was noted to be awake during 15 min face checks and became agitated when door was opened by staff. As the night wore on pt. became increasingly agitated, yelling at staff Dimple centeno. Explained to pt., with the use of online cement mason apprentice, that it is hospital policy to check on her for her safety, however she interrupted this news writer to say loudly that she cannot sleep and will become sick if does not get her sleep. Offered pt. a sleep aid but she refused getting more agitated by the conversation and eventually getting out of bed and coming at staff as if to push staff out and close the door. Monitoring continued despite pt protests. Pt slept 1 hours this shift as evidenced by being awake during each face check.
--- NOTE | 2017-01-26 11:13 | NUR ---
Mental Tester/Counselor S:" Shut up and go." O/A: Patient refused to leave her room or to let staff enter. She threatened to throw things if staff opens the door, so the conversation was carried on with the door shut. She stated she did not have anything in her room to hurt herself, when asked about SI. Other answers were inaudible, and patient became angry. Family meeting is scheduled for tomorrow, 01/27/17 at 3pm. P: Follow care plan and coordinate with outpatient providers.
--- NOTE | 2017-01-26 15:35 | NUR ---
Nursing Day [id number] S-"I slept well last night and I feel well rested. I dont hear voices or see anybody. I feel fine I have no pain either. I am hungry though is breakfast here?" O-Pt. in room in bed and is wearing the same cloths from days past. Unkempt hair. Pt. is surprisingly pleasant this morning greeting me with a smile and good morning. When breakfast was brought in Pt. got out of bed right away putting on her sandals and began to eat her breakfast immediately. At ~1300 Pt. is out of her bed and being right outside her door asking the Pts. for a broom. Pt. has put her hair in a ponytail and appears to be very pleasant. Pt. is told that the lining machine operator is on lunch and when they return they will clean up her room. Pt. stated she wanted to clean her room. At ~1445 Pt. is comes out of room and walks back in. She will talk to some Pts. walking by and then go back into room. A-Pt. making eye contact when communicating. Clear speech and speaks only [place]. Ate about 70% of her breakfast and tool her morning metformin with no complications. Pt. opened her mouth for me and no medications where seen in mouth. Pt. still in room for most of the shift. P- Follow plan of care, monitor behavior, monitor side effects of medication, safety to Pt. and others.
--- NOTE | 2017-01-26 16:54 | PCM.PNPSY ---
Subjective Date of Service Jan 26, 2017 Subjective Patient was interview was performed with diplomatic interpreter before her court appointment today. Patient did not allow us to open the door stating, "If you come in I will throw things at you." She also stated, "If I leave, I will cause trouble". It was unclear if this was in regards to leaving her room to join us for court or leave the facility. She terminated the interview by saying, "Shut up and go" with some expletives. After her court hearing in which the court orders instated a 90 day more restrictive, patient was seen walking in the singleton for the first time in a couple of weeks. She requested water and was smiling. Sleep: 0 Appetite: unable to assess Suicidal and homicidal ideation: unable to assess, previously denies Auditory hallucinations: unable to assess Visual hallucinations: unable to assess Other Psychotic Symptoms: Symptoms of paranoia Anxiety: unable to assess Depression: unable to assess Mental Status Exam Appearance: Unkept Attitude: Guarded, Hostile/Threatening (In the AM, improved after court, seen outside of her room), Other (unfriendly but not hostile) Behavior: Other (Continues to isolate, poor communication) Affect: Restricted Mood: Irritable, Fearful Thought Process/Associations: Goal Directed Speech Production: Normal Speech Rate: Normal Speech Articulation: Normal Thought Content: Appropriate, Somatic preoccupation, Suspicious Danger to Self/Suicidal Ideati: None Danger to Others: None Delusions: Paranoid (Denies, paranoid of food) Hallucinations: Auditory (Denies), Visual (Denies) Consciousness: Alert Orientation: Person, Place, Situation Memory: Short Term Memory (Impaired), Nursing Home Memory (Impaired) Estimate Intellectual Function: Average Basis for IQ estimate: Word use/vocabulary, Educational history Attention/Concentration & Cogn: Grossly Intact Insight: Limited Judgement: Limited Mental Health Plan The patient is a 66-year-old female with a history of schizophrenia who presents with symptom exacerbation. The patient has not been in active treatment of any kind for some time. It is unclear what exact medication she was taking it appears that the patient was most recently taking metformin and risperidone. According to family members the long-acting risperidone injection appeared to be of little effect. The patient endorsed using quetiapine and felt that this was useful in the past. She was agreeable to restarting this medication and indicated that it is so far making her feel calmer and she is less paranoid. The patient denies delusions of food being poisoned but continued to remain in her room and had been stating that food is "sour". Patient had been heard retching post medication dispensing. Her bathroom door is now locked post medication and retching has ceased suggestive that patient was intentionally not allowing medication to enter her system. Her refusal to go to court and aggravation before court supports that belief that she is scared of leaving the facility. This is further supported by her improved mood and willingness to leave her room once a 90 day more restrictive was ordered. Given report of patient's reluctance to take medications with side effects the patient was continued on quetiapine 300 mg nightly; however, due to increased delusions, quetiapine increased to 400mg and patient has reported resolution of delusion of being poisoned. [place] AXIS I Schizophrenia, chronic paranoid type. AXIS II Deferred. AXIS III History of diabetes by report AXIS IV Moderate. AXIS V Global Assessment of Functioning is 35. Medications Quetiapine 400 mg nightly Metformin 1000 mg twice daily Lorazepam 1 mg every 4 hours as needed for anxiety or agitation Treatments 1. The patient will be admitted to the [facility] and provided a safe and secure environment. 2. The patient is currently denying suicidality and is not in need of a one- to-one at this time. 3. The patient is encouraged to participate in group and milieu activities. 4. The patient will be seen by the treatment team on a daily basis to assess symptoms, side effects and response to treatment. 5. Quetiapine 400 mg nightly, consider further increase. 6. The patient will be provided lorazepam 1 mg every 4 hours as needed for anxiety or agitation. 7. Zolpidem 5 mg nightly as needed for insomnia. 8. According to family the patient has been out of treatment for at least 6 months and typically avoids medications with side effects will therefore titrate cautiously to avoid side effects. 9. Continue [id number] mg twice daily, may need to hold while eating less. 10. In house, circuit breaker assembler will be used for interviews whenever available, otherwise tele translation services. 11. Anticipated length of stay is 10-14 days but is on a 90 day more restrictive order secondary to unwillingness to take medication. 12. Patient will need to be on close medication watch particularly in the evening. 13. Family meeting scheduled for 01/27/2017. 14. Second opinion for medication. If approved will backup quetiapine with olanzapine 10mg IM. 15. Discuss long acting medication options secondary to patient's non- compliance. Pierre Acosta vs Marichuy Miller Attending Statement The patient was seen and examined together with Dr. Yousif on 01/26/17 and I agree with the history, exam and plan as outlined in the note above. Gay Workman DO Jan 26, 2017 16:54 Rohan Moran MD Jan 26, 2017 22:48
--- NOTE | 2017-01-26 17:31 | NUR ---
[facility] Day Shift Pt spends the majority of the shift resting in her room, only entering the hallway to briefly pace the unit. Pt affect appears flat, occasionally superficially bright. Pt occasionally observed speaking to herself. Pt declined to attend community meeting or group activities. Pt ate approx 80% of all meals.
--- NOTE | 2017-01-27 04:54 | NUR ---
Nursing Noc Pt remains isolative mostly on unit, but is noted to come out of room and ask for snacks or walk down and back the short hallway. Pt presents well groomed and independent in ADLs. Pt is noted to be frequently responding to internal stimuli and carrying on conversations. Pt often yells at staff to go away from door while doing Q15 minute safety checks, but appears to orient to reality when light turned on and communication initiated. Pt then presents happy, smiling and cooperative. Noted good effect with sleep aid administered this shift. Continuing to monitor mood behavior and emotional state. CP
--- NOTE | 2017-01-27 14:40 | PCM.PNPSY ---
Subjective Date of Service Jan 27, 2017 Subjective Patient interview was conducted with an onsite manager oracle. Upon entering patient's room, she was sleeping. Patient awoke and was subsequently quite loquacious. She was expansive on the topic of the government bombing people and her family being chased. She stated that "all of the religions started chasing me" in reference to what she had experienced last night. She reported that last night she was "shooing away" her family so that she could sleep although they were not in fact present. She also reports being able to hear music playing in Polish coming from the singleton. Patient continues to express that food tastes bad. She endorses "the little pink pill" (seroquel), saying that it helps her sleeps. She is currently amenable to trying Abilify in the morning to help during the day. Sleep: 6.5hours Appetite: selective, continues to eat only fruit and ensure Suicidal and homicidal ideation: denies Auditory hallucinations: see above Visual hallucinations: see above Other Psychotic Symptoms: paranoia Anxiety: denies Depression: denies Mental Status Exam Appearance: Unkept Attitude: Guarded, Hostile/Threatening (Not at all. Very pleasant), Other Behavior: Other (Continues to isolate, expansive communication) Affect: Restricted Mood: Expansive Thought Process/Associations: Loose Speech Production: Normal Speech Rate: Normal Speech Articulation: Normal Thought Content: Yazidi preoccupation, Somatic preoccupation, Suspicious Danger to Self/Suicidal Ideati: None Danger to Others: None Delusions: Paranoid (Denies, paranoid of food) Hallucinations: Auditory (Denies but present), Visual (Denies but present) Consciousness: Alert Orientation: Person, Place (Believes she is NOT at a [facility] hospital [facility] but at a [facility]), Date (January 26, 2018 (actual date is January 27, 2017)), Situation Memory: Short Term Memory (Impaired), Tug Hand Memory (Impaired) Estimate Intellectual Function: Average Basis for IQ estimate: Word use/vocabulary, Educational history Attention/Concentration & Cogn: Grossly Intact Insight: Limited Judgement: Limited Mental Health Plan The patient is a 66-year-old female with a history of schizophrenia who presents with symptom exacerbation. The patient has not been in active treatment of any kind for some time. It is unclear what exact medication she was taking it appears that the patient was most recently taking metformin and risperidone. According to family members the long-acting risperidone injection appeared to be of little effect. The patient endorsed using quetiapine and felt that this was useful in the past. She was agreeable to restarting this medication and indicated that it is so far making her feel calmer and she is less paranoid. The patient denies delusions of food being poisoned but continued to remain in her room and had been stating that food is "sour". Patient had been heard retching post medication dispensing. Her bathroom door is now locked post medication and retching has ceased suggestive that patient was intentionally not allowing medication to enter her system. Her refusal to go to court and aggravation before court supports that belief that she is scared of leaving the facility. This is further supported by her improved mood and willingness to leave her room once a 90 day more restrictive was ordered. The improved mood post-court has continued with patient leaving her room several times and increasing communication. No insight into hallucinations. Willing to start Abilify The patient is now taking medications, but is quite delusional. Given previous medication non-adherence, will begin aripiprazole cross taper. [place] AXIS I Schizophrenia, chronic paranoid type. AXIS II Deferred. AXIS III History of diabetes by report AXIS IV Moderate. AXIS V Global Assessment of Functioning is 35. Medications Aripiprazole 5mg po daily Quetiapine 200 mg nightly Metformin 1000 mg twice daily Lorazepam 1 mg every 4 hours as needed for anxiety or agitation Treatments 1. The patient will be admitted to the [facility] [place] and provided a safe and secure environment. 2. The patient is currently denying suicidality and is not in need of a one- to-one at this time. 3. The patient is encouraged to participate in group and milieu activities. 4. The patient will be seen by the treatment team on a daily basis to assess symptoms, side effects and response to treatment. 5. Decrease Quetiapine to 200 mg nightly 6. The patient will be provided lorazepam 1 mg every 4 hours as needed for anxiety or agitation. 7. Zolpidem 5 mg nightly as needed for insomnia. 8. According to family the patient has been out of treatment for at least 6 months and typically avoids medications with side effects will therefore titrate cautiously to avoid side effects. 9. Continue [id number] mg twice daily, may need to hold while eating less. 10. In house, vehicle painter will be used for interviews whenever available, otherwise tele translation services. 11. Anticipated length of stay is 10-14 days but is on a 90 day more restrictive order secondary to unwillingness to take medication. 12. Patient will need to be on close medication watch particularly in the evening. 13. Start Aripiprazole 5mg qd po. Slow taper up to avoid side effects. 14. Second opinion for medication. Will backup aripiprazole/quetiapine with olanzapine 10mg IM. 15. Discuss long acting medication options secondary to patient's non- compliance. Will prepare for Pierre Acosta Attending Statement The patient was seen and examined together with Dr. Yousif on 01/27/17 and I have added additional information to the note above. Gay Workman DO Jan 27, 2017 14:40 Rohan Moran MD Jan 28, 2017 00:04
--- NOTE | 2017-01-27 15:55 | NUR ---
Campus Manager/Counselor S:"I felt comfortable walking around outside my room." O: Patient denied any SI or HI, no anxiety or depression. She stated she "heard" music videos outside of her room last night, and enjoyed listening to them. She also shooed her family out of her room last night. Family was not present in her room. A: Patient still sees and hears things, and will talk about her delusions. She was pleasant but very tangential. She was out of her room at times today and eating some fruit. She was cooperative when speaking with the dr and staff. P: Follow care plan and coordinate with outpatient providers.
--- NOTE | 2017-01-27 16:50 | NUR ---
Nursing Day [id number] S-"I dont hear or see anything. Leave my breakfast by the bed and I will get up in a little to eat it." O-Pt. in room in bed and is wearing the same cloths from days past. Unkempt hair. Pt. is pleasant this morning greeting me with a smile and "good morning." After about 10min-15min Pt. is seen eating her fruit pacing the singleton by her room. Pt. sees the other Pts. eating and walks back to her room. A-Pt. making eye contact when communicating. Clear speech and ate only about 15% of her breakfast. Pt. states no auditory hallucination as well as visual hallucination. Pt. is in room with periods of walking out of her room and then walking back into her room. P- Follow plan of care, monitor behavior, monitor side effects of medication, safety to Pt. and others.
[2017-01-27 17:26] VITALS: BP 130/81; PULSE 80; RESP 16
--- NOTE | 2017-01-27 18:36 | NUR ---
[facility] Day Shift Pt affect and behavior unchanged from previous shift. Pt spends the majority of the shift resting in her room, only entering the hallway to briefly pace the unit. Pt affect appears flat, occasionally superficially bright. Pt occasionally observed speaking to herself. Pt declined to attend community meeting or group activities. Pt ate approx 30% of breakfast and 60-80% of lunch and dinner.
--- NOTE | 2017-01-28 05:33 | NUR ---
Nursing noc Pt isolative this shift spending almost entire evening in room with out to singleton way once for short period. Appeared to have slept really well without assist of sleep aid this shift. Metformin withheld, Continuing to monitor sleep times and quality, mood, behavior and emotional state. Q15 minute safety checks performed throughout the night. CP
--- NOTE | 2017-01-28 07:03 | NUR ---
OBSERVATIONS Pt was isolative throughout the shift, remaining in bed for its entirety. Pt politely declined when asked if she would be joining us for evening group. Pt was reported asleep at approximately 2200 and slept through the night. Maintained Q15 checks for safety as directed.
[2017-01-28 10:03] VITALS: BP 126/78; PULSE 80; RESP 16
--- NOTE | 2017-01-28 16:35 | NUR ---
Nursing Dayshift: S: "Gildardo de dios." O: Patient's statement when her blood sugar was 121. Has been eating in her room. Poor appetite. Good eye contact. Has been in her room most of the shift in bed. Cooperative with blood sugars (121 this AM) and medications. A: Isolative. Poor appetite. P: CPOC. Monitor mood and behavior.
--- NOTE | 2017-01-28 17:25 | NUR ---
Observations 0900 - 2130 Pt was in bed when the shift started and she remained in bed and was isolative all day. Pt maintained behavior throughout the shift. Pt was offered snack but she declined. Pt refused to come out for meals but her meal trays were brought to her room. She had a poor appetite and ate about 25% of each meal. Pt has been drinking fluids. Pt was offered a shower but she refused. Pt remained in her room the entire shift. Pt was observed every 15 minutes throughout the shift as ordered.
--- NOTE | 2017-01-28 18:58 | PCM.PNPSY ---
Subjective Date of Service Jan 28, 2017 Subjective The patient was seen with the locker room attendant and reported that she was "doing fine. " She denied side effects to medication. She did report ongoing sour taste in her mouth. Denies feeling that food is poisoned but only eating fruit. Discussed doing daily weights, but patient stated she would not leave room. She was agreeable to having scale brought to her. It took several tries of explaining side effect, but patient eventually agreed to switch Metformin to glipizide. Sleep: 8 hours Appetite: only eating fruit. Suicidal and homicidal ideation: denies Auditory hallucinations: denies Visual hallucinations: denies Other Psychotic Symptoms: ongoing paranoia Anxiety: denies Depression: denies Current Medications Current Medications Aripiprazole 5 mg DAILY PO Last administered on 01/28/17 08:36; Admin Dose 5 MG ; Start 01/28/17 at 08:30 Quetiapine Fumarate 200 mg HS PO Last administered on 01/27/17 21:21; Admin Dose 200 MG; Start 01/27/17 at 21:00 Mental Status Exam Appearance: Unkept Attitude: Guarded Behavior: Other (Continues to isolate) Affect: Restricted Mood: Euthymic Thought Process/Associations: Goal Directed Speech Production: Paucity Speech Rate: Normal Speech Articulation: Normal Thought Content: Episcopalian preoccupation, Somatic preoccupation, Suspicious Danger to Self/Suicidal Ideati: None Danger to Others: None Delusions: Paranoid (Denies, paranoid of food) Hallucinations: Auditory (Denies), Visual (Denies) Consciousness: Alert Orientation: Person, Place (generally though not a mental facility), Situation Memory: Short Term Memory (Impaired), Casino Surveillance Officer Memory (Impaired) Estimate Intellectual Function: Average Basis for IQ estimate: Word use/vocabulary, Educational history Attention/Concentration & Cogn: Grossly Intact Insight: Limited Judgement: Limited Mental Health Plan The patient is a 66-year-old female with a history of schizophrenia who presents with symptom exacerbation. The patient has not been in active treatment of any kind for some time. It is unclear what exact medication she was taking it appears that the patient was most recently taking metformin and risperidone. According to family members the long-acting risperidone injection appeared to be of little effect. The patient endorsed using quetiapine and felt that this was useful in the past. She was agreeable to restarting this medication and indicated that it is so far making her feel calmer and she is less paranoid. The patient denies delusions of food being poisoned but continued to remain in her room and had been stating that food is "sour". Patient had been heard retching post medication dispensing. Her bathroom door is now locked post medication and retching has ceased suggestive that patient was intentionally not allowing medication to enter her system. Her refusal to go to court and aggravation before court supports that belief that she is scared of leaving the facility. This is further supported by her improved mood and willingness to leave her room once a 90 day more restrictive was ordered. The improved mood post-court has continued with patient leaving her room several times and increasing communication. No insight into hallucinations. Willing to start Abilify The patient is now taking medications, but remains delusional. Given previous medication non-adherence, have begun aripiprazole cross taper with eventual plan for long-acting medication. Patient may have decreased bad taste with switch to glipizide LA though this side effect could still occur and is more common in her age range. [place] AXIS I Schizophrenia, chronic paranoid type. AXIS II Deferred. AXIS III History of diabetes by report AXIS IV Moderate. AXIS V Global Assessment of Functioning is 35. Medications Aripiprazole 5mg po daily Quetiapine 200 mg nightly Glipizide LA 2.5mg daily Lorazepam 1 mg every 4 hours as needed for anxiety or agitation Treatments 1. [facility] and provided a safe and secure environment. 2. The patient is currently denying suicidality and is not in need of a one- to-one at this time. 3. The patient is encouraged to participate in group and milieu activities. 4. The patient will be seen by the treatment team on a daily basis to assess symptoms, side effects and response to treatment. 5. Decrease Quetiapine to 200 mg nightly 6. The patient will be provided lorazepam 1 mg every 4 hours as needed for anxiety or agitation. 7. Zolpidem 5 mg nightly as needed for insomnia. 8. According to family the patient has been out of treatment for at least 6 months and typically avoids medications with side effects will therefore titrate cautiously to avoid side effects. 9. Switch to Glipizide LA 2.5mg daily and titrate to 5mg if needed. 10. In house, spray blender will be used for interviews whenever available, otherwise tele translation services. 11. Patient now on a 90 day more restrictive order secondary to unwillingness to take medication. 12. Patient will need to be on close medication watch particularly in the evening. 13. Start Aripiprazole 5mg qd po. Slow titration to avoid side effects. 14. Second opinion for medication. Will backup aripiprazole/quetiapine with olanzapine 10mg IM. 15. Discuss long acting medication options secondary to patient's non- compliance. Will prepare for Rohan Mondragon MD Jan 28, 2017 18:58
--- NOTE | 2017-01-29 05:47 | NUR ---
Nursing Note Manager Advanced 7pm to 7am Pt in bed at start of shift. Calm and pleasant upon approach. Took HS meds including Ambien for sleep without issue. Pt slept 6.5 hours. Monitored pt with q 15 minute face checks for safety location and accountability
[2017-01-29] MEDS: glipiZIDE 2.5 mg ER24 Tablet PO SCH (07:50)
[2017-01-29 10:00] VITALS: BP 132/78; PULSE 91; RESP 18
--- NOTE | 2017-01-29 14:16 | PCM.PNPSY ---
Subjective Date of Service Jan 29, 2017 Subjective I spent 30 minutes both reviewing treatment plan with our clinical team, interviewing the patient and providing supportive/educational psychotherapy. I spent more than 50% of the time counseling the patient. I reviewed the treatment plan with the patient and discussed options available including the potential risks, benefits and side effects. Shadia reports a improvement in thought organization and mood stability. Staff reports that she has been isolating and is participating poorly in one-to- one unit and group activities. She slept 7 hours and denies depression or psychotic symptoms review. She denies medication side effects. Staff reports that she frequently just wants to stay in her room. She continues to feel that the food may be poisoned. They state that she has been generally calm pleasant and easy to redirect. She no longer appears to be vomiting her after taking her medications. Current Medications Current Medications Aripiprazole 5 mg DAILY PO Last administered on 01/29/17 07:50; Admin Dose 5 MG ; Start 01/28/17 at 08:30 Glipizide 2.5 mg DAILYAC PO Last administered on 01/29/17 07:50; Admin Dose 2.5 MG; Start 01/29/17 at 07:30 Quetiapine Fumarate 200 mg HS PO Last administered on 01/28/17 20:28; Admin Dose 200 MG; Start 01/27/17 at 21:00 Mental Status Exam Appearance: Unkept Attitude: Guarded Behavior: Other (Continues to isolate) Affect: Restricted Mood: Euthymic Thought Process/Associations: Goal Directed Speech Production: Paucity Speech Rate: Normal Speech Articulation: Normal Thought Content: Adventist preoccupation, Somatic preoccupation, Suspicious Danger to Self/Suicidal Ideati: None Danger to Others: None Delusions: Paranoid (Denies, paranoid of food) Hallucinations: Auditory (Denies), Visual (Denies) Consciousness: Alert Orientation: Person, Place (generally though not a mental facility), Situation Memory: Short Term Memory (Impaired), Long-Term Memory (Impaired) Estimate Intellectual Function: Average Basis for IQ estimate: Word use/vocabulary, Educational history Attention/Concentration & Cogn: Grossly Intact Insight: Limited Judgement: Limited Mental Health Plan Shadia continues to be mostly isolative and staying in bed. She is refusing any type of psychotherapeutic work but is willing to talk to me and take medications. It seems as though my alliance with her is increasing. She appears to be making slow but gradual progress in improved thought organization and mood stability despite nearly complete nonparticipation in the unit program. At this point she is denying medication side effects. Staff reports that she has been participating minimally in one-to-one . Staff reports that although she denies paranoia staff believes she is continuing to feel paranoid about her neighbors and is not wanting to leave the hospital for fear of the neighbors. She slept well and denies depression manic or psychotic symptoms review (patient is a poor historian and appears to be rationalizing to justify recent bizarre behavior). [place] AXIS I Schizophrenia, chronic paranoid type. AXIS II Deferred. AXIS III History of diabetes by report AXIS IV Moderate. AXIS V Global Assessment of Functioning is 35. Treatments Patient is being provided with a high degree of safety through our unit structure and active adult engagement provided by our mental health professionals, mental health technicians, psychiatric nurses and myself. We are focusing on developing improved coping skills and identifying stressors that may have led to current episode. We will attempt to: * Integrate into therapeutic groups, milieu and individual therapy. * Maintain in a closely monitored and structured unit * Provide low-stimulation environment * Obtain collateral data to assist in treatment planning * Assess degree of lability of affect and impulse control * Complete safety plan * Decrease frequency of relapse and need for re-hospitalization * Denies thoughts of harm to self and/or others * Establish a consistent sleep pattern * Medication effective in stabilization of mood and/or thought process * Reduce the risk of imminent harm to self and/or others by providing a safe environment * Tolerates medication without side effects Patient will be on the following psychiatric medications: Aripiprazole 5mg po daily Quetiapine 200 mg nightly Glipizide LA 2.5mg daily Patient's legal status Patient is on a 90 MR involuntary treatment hold. Anticipated number of hospital days to achieve above goals: Patient may require long-term treatment at [facility] Disposition: Home or [facility] Farhan Mathur MD Jan 29, 2017 14:16
--- NOTE | 2017-01-29 15:14 | NUR ---
Calculating Machine Operator/Counselor S:I'm fine." O: Patient denies any HI or SI, no AVH, and no anxiety or depression. A: Patient remains secluded in bedroom, and does not participate in any groups. She is not out on the milieu. She denies any AVH, it varies daily.Pleasant and cooperative when spoken to. P: Follow care plan and coordinate with outpatient providers.
--- NOTE | 2017-01-29 18:56 | NUR ---
Dayshift note S/O: Pt is not participating with group, pt has not left her room all day. A: Pt is isolating to her room today. Pt is Latvian speaking only. Pt denies anxiety and depression, pt states she has no SI/HI. Pt out in the DR for meals. P: Follow plan of care, monitor behaviors. Monitor for side effects.
--- NOTE | 2017-01-29 21:22 | NUR ---
OBSERVATIONS Pt remained in room for the entire shift. This A approached pt several times to encourage pt to leave room, eat, participate in group activities but pt refused. Educated pt that lying in bed al day good negatively impact circulation, skin integrity, and musculoskeletal health and encouraged her to walk the halls of the unit, pt replied that she is fine, that she walks around her room when we are not looking. Pt refused to leave room but agreed to eat dinner if it was brought to her, however, pt only ate melon and apple juice and stated that she is ok with just drinking supplement shakes. Pt expressed desire for family to visit but declined to make a phone call to family members on multiple occasions. Maintained Q15 checks for safety as directed.
--- NOTE | 2017-01-30 03:29 | NUR ---
Nursing, NOC Patient noted to be in her room, did not participate in group. Cooperative w/ medication administration. PRN Ambien given at HS for c/o sleeplessness. Appears to sleep well thru the NOC. CTM for changes.
[2017-01-30 08:15] VITALS: BP 144/96; PULSE 80; RESP 15
[2017-01-30] MEDS: glipiZIDE 2.5 mg ER24 Tablet PO SCH (08:27)
--- NOTE | 2017-01-30 13:13 | NUR ---
NURS NOTE DAYSHIFT Assessed with telephone/video full time staff interpreter. Mood: Denies depression, anxiety. Affect: Elevated, laughing & smiling. Angry, at times. Thought Process/Content: "The nurse is funny. (laughing) She needs to stop worrying so much, that's why she has so many estrella hairs." Denies AH, VH. Denies SI, HI. Behavior: Pt in bed all shift. PRNs/NURS: Ate one waffle for breakfast and no lunch. Pt in bed all day. Asked pt multiple times to get up and pt stated, "I got up and walked around the room before. I'm comfortable here in this room and do not want to leave."
--- NOTE | 2017-01-30 17:02 | NUR ---
Observations [id number] Pt isolative to room for the entire shift. Pt was observed pacing room though, which was not observed in previous shifts. Observations made difficult by language barrier and isolation to room. Pt did visit with her brother and two sons during visiting hours. Pt ate 50% of dinner, ate 50% of lunch with her family here. Pt reports to family that her food doesn't taste food which is a potential side effect of the medication. Pt's family reported they continue to encourage her to walk unit. She was observed every 15 minutes of shift as directed.
--- NOTE | 2017-01-30 18:18 | PCM.PNPSY ---
Subjective Date of Service Jan 30, 2017 Subjective I spent 30 minutes both reviewing treatment plan with our clinical team, interviewing the patient and providing supportive/educational psychotherapy. I used an food service hotel runner to help me communicate with this Bangladeshi only speaking patient. I spent more than 50% of the time counseling the patient. I reviewed the treatment plan with the patient and discussed options available including the potential risks, benefits and side effects. Shadia reports a improvement in thought organization and mood stability. Staff reports that she has been isolating and is participating poorly in one-to- one unit and group activities. She slept 9 hours and denies depression or psychotic symptoms review. She denies medication side effects. Staff reports that she frequently just wants to stay in her room. She denies feeling that the food may be poisoned. They state that she has been generally calm pleasant and easy to redirect. She no longer appears to be vomiting her after taking her medications. Current Medications Current Medications Glipizide 2.5 mg DAILYAC PO Last administered on 01/30/17t 08:27; Admin Dose 2.5 MG; Start 01/29/17 at 07:30 Mental Status Exam Appearance: Unkept Attitude: Guarded Behavior: Other (Continues to isolate) Affect: Restricted, Other (incongruent laughing inappropriately) Mood: Euthymic Thought Process/Associations: Goal Directed Speech Production: Paucity Speech Rate: Normal Speech Articulation: Normal Thought Content: Zoroastrianism preoccupation, Somatic preoccupation, Suspicious Danger to Self/Suicidal Ideati: None Danger to Others: None Delusions: Paranoid (Denies, paranoid of food) Hallucinations: Auditory (Denies) Consciousness: Alert Orientation: Person, Place (generally though not a mental facility), Situation Memory: Short Term Memory (Impaired), Jail Memory (Impaired) Estimate Intellectual Function: Average Basis for IQ estimate: Word use/vocabulary, Educational history Attention/Concentration & Cogn: Grossly Intact Insight: Limited Judgement: Limited Mental Health Plan Shadia continues to be mostly isolative and staying in bed. She is refusing any type of psychotherapeutic work but is willing to talk to me and take medications. It seems as though my alliance with her is increasing. She appears to be making slow but gradual progress in improved thought organization and mood stability despite nearly complete nonparticipation in the unit program. At this point she is denying medication side effects. Staff reports that she has been participating minimally in one-to-one . Staff reports that although she denies paranoia staff believes she is continuing to feel paranoid about her neighbors and is not wanting to leave the hospital for fear of the neighbors. She slept well and denies depression manic or psychotic symptoms review (patient is a poor historian and appears to be rationalizing to justify recent bizarre behavior). [place] AXIS I Schizophrenia, chronic paranoid type. AXIS II Deferred. AXIS III History of diabetes by report AXIS IV Moderate. AXIS V Global Assessment of Functioning is 35. Treatments Patient is being provided with a high degree of safety through our unit structure and active adult engagement provided by our mental health professionals, mental health technicians, psychiatric nurses and myself. We are focusing on developing improved coping skills and identifying stressors that may have led to current episode. We will attempt to: * Integrate into therapeutic groups, milieu and individual therapy. * Maintain in a closely monitored and structured unit * Provide low-stimulation environment * Obtain collateral data to assist in treatment planning * Assess degree of lability of affect and impulse control * Complete safety plan * Decrease frequency of relapse and need for re-hospitalization * Denies thoughts of harm to self and/or others * Establish a consistent sleep pattern * Medication effective in stabilization of mood and/or thought process * Reduce the risk of imminent harm to self and/or others by providing a safe environment * Tolerates medication without side effects Patient will be on the following psychiatric medications: Aripiprazole 5mg po daily Quetiapine 200 mg nightly Glipizide LA 2.5mg daily Patient's legal status Patient is on a 90 MR involuntary treatment hold. Anticipated number of hospital days to achieve above goals: Patient may require long-term treatment at [facility] Disposition: Home or [facility] Farhan Mathur MD Jan 30, 2017 18:18
--- NOTE | 2017-01-30 20:30 | NUR ---
Observations 0900 - 2130 Pt was in bed when the shift started and she remained in bed and was isolative all day. Pt maintained behavior throughout the shift. Pt was offered snack but she declined. Pt refused to come out for meals but her meal trays were brought to her room. She had a poor appetite and ate about 25% of each meal. Pt has been drinking fluids. Pt was offered a shower but she refused. Pt remained in her room the entire shift. Pt sons came to visit her and got her to eat about 50% of a quesadilla that staff got from the kitchen. Pt was observed every 15 minutes throughout the shift as ordered.
--- NOTE | 2017-01-30 23:21 | NUR ---
Nurses Note evening Patient has remained in her room. Her appetite has been poor. Her diet has been changed to include tortilla with cheese instead of hamburgers. Patients' sons visited and stressed the importance of self care and an adequate nutrition before returning home. Patient will be monitored q 15min. checks for safety and support. Addendum: 01/30/17 at 8756 by GEOVANNY FARMER RN Amended: Links added.
--- NOTE | 2017-01-31 00:14 | NUR ---
Observations 1900 to 0700 Pt did not attend wrap up group. Pt did not eat a snack. Pt remains in room/ bed. During safety checks, pt yells at staff in Kiswahili to keep door shut. Staff completed 15 min close observations as ordered.
--- NOTE | 2017-01-31 05:25 | NUR ---
Light Armored Vehicle Officer Nursing Note 11pm to 7am Pt awake at start of shift and did not fall asleep until 0315 and was awake by 0500. Pt remained quietly in her room while awake. Monitored pt. with q 15 min face checks for safety, location and accountability. Monitored pt. with q 15 min face checks for safety, location and accountability
[2017-01-31 08:15] VITALS: BP 142/92; PULSE 82; RESP 16
[2017-01-31] MEDS: glipiZIDE 2.5 mg ER24 Tablet PO SCH (08:50)
--- NOTE | 2017-01-31 12:40 | PCM.PNPSY ---
Subjective Date of Service Jan 31, 2017 Subjective I spent 30 minutes both reviewing treatment plan with our clinical team, interviewing the patient and providing supportive/educational psychotherapy. I used an bulk folder to help me communicate with this Kyrgyz only speaking patient. I spent more than 50% of the time counseling the patient. I reviewed the treatment plan with the patient and discussed options available including the potential risks, benefits and side effects. Shadia reports a improvement in thought organization and mood stability. Staff reports that she has been isolating and is participating poorly in one-to- one unit and group activities. She slept 9 hours per 24 hours and denies depression or psychotic symptoms review. She denies medication side effects. Staff reports that she frequently just wants to stay in her room. She denies feeling that the food may be poisoned. They state that she has been generally calm pleasant and easy to redirect. She no longer appears to be vomiting her after taking her medications. Mental Status Exam Appearance: Neat/well groomed Attitude: Pleasant, Cooperative Behavior: Other (Continues to isolate) Affect: Well Modulated/Appropriate, Other (incongruent laughing inappropriately ) Mood: Euthymic Thought Process/Associations: Logical/Sequential, Goal Directed Speech Production: Normal Speech Rate: Normal Speech Articulation: Normal Thought Content: Rastafari preoccupation, Somatic preoccupation, Suspicious Danger to Self/Suicidal Ideati: None Danger to Others: None Delusions: Paranoid (Denies, paranoid of food) Consciousness: Alert Orientation: Person, Place (generally though not a mental facility), Situation Memory: Short Term Memory (Impaired), Retirement Memory (Impaired) Estimate Intellectual Function: Average Basis for IQ estimate: Word use/vocabulary, Educational history Attention/Concentration & Cogn: Grossly Intact Insight: Limited Judgement: Limited Mental Health Plan Shadia continues to be mostly isolative and staying in bed. She is refusing any type of psychotherapeutic work but is willing to talk to me and take medications. It seems as though my alliance with her is increasing. She appears to be making slow but gradual progress in improved thought organization and mood stability despite nearly complete nonparticipation in the unit program. At this point she is denying medication side effects. Staff reports that she has been participating minimally in one-to-one sessions . Staff reports that she is no longer feeling paranoid about her neighbors and is now wanting to leave the hospital. She slept well and denies depression manic or psychotic symptoms review . [place] AXIS I Schizophrenia, chronic paranoid type. AXIS II Deferred. AXIS III History of diabetes by report AXIS IV Moderate. AXIS V Global Assessment of Functioning is 35. Treatments Patient is being provided with a high degree of safety through our unit structure and active adult engagement provided by our mental health professionals, mental health technicians, psychiatric nurses and myself. We are focusing on developing improved coping skills and identifying stressors that may have led to current episode. We will attempt to: * Integrate into therapeutic groups, milieu and individual therapy. * Maintain in a closely monitored and structured unit * Provide low-stimulation environment * Obtain collateral data to assist in treatment planning * Assess degree of lability of affect and impulse control * Complete safety plan * Decrease frequency of relapse and need for re-hospitalization * Denies thoughts of harm to self and/or others * Establish a consistent sleep pattern * Medication effective in stabilization of mood and/or thought process * Reduce the risk of imminent harm to self and/or others by providing a safe environment * Tolerates medication without side effects Patient will be on the following psychiatric medications: Aripiprazole 5mg po daily Quetiapine 200 mg nightly Glipizide LA 2.5mg daily Patient's legal status Patient is on a 90 MR involuntary treatment hold. Anticipated number of hospital days to achieve above goals: Patient may require long-term treatment at [facility] Disposition: Home or [facility] Farhan Mathur MD Jan 31, 2017 12:40
--- NOTE | 2017-01-31 16:17 | NUR ---
Nursing Day [id number] S- "I dont hear or see anything. No pain I feel strong. I dont eat the food because I dont like it. I prefer Surinamese food, if you can get me Surinamese food than I will eat." O-Pt. in room in her bed and is wearing the same cloths from days past. Unkempt hair. Pt. is pleasant this morning greeting me with a smile and stated "good morning." When I told Pt. she needs to get up and try walking out of her room and socializing with other Pts., Pt. stated "I do get up and walk around in the room." Pt. is still maintaining staying in her room and not socializing with other Pts. A-Pt. making eye contact when communicating. Clear speech and Pt. states no auditory hallucination as well as no visual hallucination. Pt. states she is walking in the room when asked if she is getting up. P- Follow plan of care, monitor behavior, monitor side effects of medication, safety to Pt. and others. Addendum: 01/31/17 at 1735 by SASHA ALBARADO RN At about 1700 Pt. is heard in her room talking and laughing and when asked who she is talking too she said "My who called me and told me to take care of myself when he needs to take care of himself." Pt. has had no phone calls come in today. Then at about 1730 Pt. is heard talking in her room again and when asked who she is talking too she states "My daughters who are asking me to let them borrow some of my cloths." Pt. is again laughing.
--- NOTE | 2017-01-31 16:18 | NUR ---
Crane Mechanic/Counselor S: "I'm fine." O: Patient denies any SI and HI, no AVH, no anxiety or depression. A: Patient has been secluded to her room all day. Per dr, she is supposed to come out for an hour after each meal. Patient insisted that she has come out of her room periodically. NO interaction on the unit or with other patients. P: Follow care plan and coordinate with outpatient providers.
--- NOTE | 2017-01-31 22:27 | NUR ---
7-11 NURSING NOTE Patient presents with bright affect and positive mood. Reports to be feeling well. Taking medications without issue. Continues to isolate in her room. Appears to be resting comfortably in her room.
--- NOTE | 2017-01-31 23:55 | NUR ---
NOC OBS Pt isolated to room all of evening. When staff went in to check she interacted appropriately with a smile. Asleep 2300. Observed Q15 as ordered.
--- NOTE | 2017-02-01 05:59 | NUR ---
Nursing Heavy Equipment Field Mechanic 11pm to 7am Pt asleep at start of shift and remained asleep for the duration with no complaints voiced or observed. Monitored pt. with 15 min face checks for safety, location and accountability
[2017-02-01 08:11] VITALS: BP 118/77; PULSE 78
[2017-02-01] MEDS: glipiZIDE 2.5 mg ER24 Tablet PO SCH (08:39)
--- NOTE | 2017-02-01 14:08 | PCM.PNPSY ---
Subjective Date of Service Feb 01, 2017 Subjective I spent 30 minutes both reviewing treatment plan with our clinical team, interviewing the patient and providing supportive/educational psychotherapy. I used an professor of art history to help me communicate with this Bulgarian only speaking patient. I spent more than 50% of the time counseling the patient. I reviewed the treatment plan with the patient and discussed options available including the potential risks, benefits and side effects. Shadia reports a improvement in thought organization and mood stability. Staff reports that she has been isolating and is participating poorly in one-to- one unit and group activities. She slept approx 10 hours per 24 hours and denies depression or psychotic symptoms review. She denies medication side effects. Staff reports that she frequently just wants to stay in her room. She denies feeling that the food may be poisoned. They state that she has been generally calm pleasant and easy to redirect. She no longer appears to be vomiting her after taking her medications. Mental Status Exam Vital Signs Vital Signs Date Time Temp Pulse Resp B/P Pulse Ox O2 Delivery O2 Flow Rate FiO2 02/01/17 08:11 36.5 78 118/77 Appearance: Neat/well groomed Attitude: Pleasant, Cooperative Behavior: Other (Continues to isolate) Affect: Well Modulated/Appropriate Mood: Euthymic Thought Process/Associations: Logical/Sequential, Goal Directed Speech Production: Normal Speech Rate: Normal Speech Articulation: Normal Thought Content: Suspicious Danger to Self/Suicidal Ideati: None Danger to Others: None Delusions: Paranoid (Denies, paranoid of food) Consciousness: Alert Orientation: Person, Place (generally though not a mental facility), Situation Memory: Untestable Estimate Intellectual Function: Average Basis for IQ estimate: Word use/vocabulary, Educational history Attention/Concentration & Cogn: Grossly Intact Insight: Limited Judgement: Limited Mental Health Plan Shadia continues to be mostly isolative and staying in bed. She is refusing any type of psychotherapeutic work but is willing to talk to me and take medications. It seems as though my alliance with her is increasing. She appears to be making slow but gradual progress in improved thought organization and mood stability despite nearly complete nonparticipation in the unit program. At this point she is denying medication side effects. Staff reports that she has been participating minimally in one-to-one sessions . Staff reports that she is no longer feeling paranoid about her neighbors and is now wanting to leave the hospital. She slept well and denies depression manic or psychotic symptoms review . She is requesting discharge. I am planning to petition the court for us least restrictive order and discharge her to home on Tuesday if she continues to show this slow but steady improvement. [place] AXIS I Schizophrenia, chronic paranoid type. AXIS II Deferred. AXIS III History of diabetes by report AXIS IV Moderate. AXIS V Global Assessment of Functioning is 35. Treatments Patient is being provided with a high degree of safety through our unit structure and active adult engagement provided by our mental health professionals, mental health technicians, psychiatric nurses and myself. We are focusing on developing improved coping skills and identifying stressors that may have led to current episode. We will attempt to: * Integrate into therapeutic groups, milieu and individual therapy. * Maintain in a closely monitored and structured unit * Provide low-stimulation environment * Obtain collateral data to assist in treatment planning * Assess degree of lability of affect and impulse control * Complete safety plan * Decrease frequency of relapse and need for re-hospitalization * Medication effective in stabilization of mood and/or thought process * Tolerates medication without side effects Patient will be on the following psychiatric medications: Aripiprazole 5mg po daily Quetiapine 200 mg nightly Glipizide LA 2.5mg daily Patient's legal status Patient is on a 90 MR involuntary treatment hold. Anticipated number of hospital days to achieve above goals: 4 Disposition: Anticipated discharge to home on a 90 day LR on Tuesday Farhan Mathur MD Feb 01, 2017 14:08
--- NOTE | 2017-02-01 16:04 | NUR ---
Ios Developer/Counselor S: I'm fine. O: Patient denied any SI or HI, no AVH, no anxiety or depression. A: Patient has been pleasant, but has remained in her room and mostly in her bed. She has not been out on the unit, and has not interacted with other patients. P: Follow care plan and coordinate with outpatient providers.
--- NOTE | 2017-02-01 16:06 | NUR ---
Nursing Day Note- Patient has stayed in her room all day,despite many attempts of staff asking her to come out for meals or to go out to patio. She said via library services assistant that she will get up and walk around in her room. Denies complaints. Smiling and laughing and seems in good spirits when spoken to. Eating about one half of her meals. Has not requested any other foods or drinks.
--- NOTE | 2017-02-01 23:55 | NUR ---
NOC OBS [id number] Pt isolated to room whole shift. Asleep after 2300. Observed Q15 as ordered.
--- NOTE | 2017-02-02 04:51 | NUR ---
NOC NURSING NOTE Patient continued to refuse to come out of her room. She did present with a very bright affect, smiling and laughing with staff. Requested pudding, staff brought her popcorn, a banana, and ice cream. She appeared excited about food options and ate most of popcorn, all of ice cream, and half the banana. Appears to be sleeping well at this time.
[2017-02-02] MEDS: glipiZIDE 2.5 mg ER24 Tablet PO SCH (07:25)
--- NOTE | 2017-02-02 12:26 | NUR ---
Obs Dayshift Pt is continuing to Isolate to her room, eats well if the trays are taken to her. Pt does do some pacing in her room, but spends most of her time in bed. Pt is polite, superficial, language barrier, does not participate in groups or activities on the unit. Does take calls and visits from family daily. Poor ADL's, Good meals
--- NOTE | 2017-02-02 12:32 | NUR ---
Nursing Dayshift: S/O: Patient has been in her room all of the shift. Utilized plastic top assembler via iPad with patient relating not being in any distress. States she is eating well which is confirmed by staff. Laughing at the end of the interview. A: Bright and cheery. Isolative. P: CPOC. Monitor mood and behavior.
--- NOTE | 2017-02-02 15:40 | PCM.PNPSY ---
Subjective Date of Service Feb 02, 2017 Subjective I spent 30 minutes both reviewing treatment plan with our clinical team, interviewing the patient and providing supportive/educational psychotherapy. I used an motor vehicle parts interpreter to help me communicate with this Telugu only speaking patient. I spent more than 50% of the time counseling the patient. (V as in Jabier's attitude about how very curious about your impression Shadia reports a improvement in thought organization and mood stability. Staff reports that she has been isolating and is participating poorly in one-to- one unit and group activities. She slept approx 10 hours per 24 hours and denies depression or psychotic symptoms review. She denies medication side effects. Mental Status Exam Appearance: Neat/well groomed Attitude: Pleasant, Cooperative Behavior: Other (Continues to isolate) Affect: Well Modulated/Appropriate Mood: Euthymic Thought Process/Associations: Logical/Sequential, Goal Directed Speech Production: Normal Speech Rate: Normal Speech Articulation: Normal Thought Content: Suspicious Danger to Self/Suicidal Ideati: None Danger to Others: None Delusions: Paranoid (Denies, paranoid of food) Consciousness: Alert Orientation: Person, Place (generally though not a mental facility), Situation Memory: Untestable Estimate Intellectual Function: Average Basis for IQ estimate: Word use/vocabulary, Educational history Attention/Concentration & Cogn: Grossly Intact Insight: Limited Judgement: Limited Mental Health Plan Shadia continues to be mostly isolative and staying in bed. She is refusing any type of psychotherapeutic work but is willing to talk to me and take medications. It seems as though my alliance with her is increasing. She appears to be making slow but gradual progress in improved thought organization and mood stability despite nearly complete nonparticipation in the unit program. At this point she is denying medication side effects. Staff reports that she has been participating minimally in one-to-one sessions . Staff reports that she is no longer feeling paranoid about her neighbors and is now wanting to leave the hospital. She slept well and denies depression manic or psychotic symptoms review . She is requesting discharge. I am planning to petition the court for us least restrictive order and discharge her to home on Tuesday if she continues to show this slow but steady improvement. [place] AXIS I Schizophrenia, chronic paranoid type. AXIS II Deferred. AXIS III History of diabetes by report AXIS IV Moderate. AXIS V Global Assessment of Functioning is 35. Treatments Patient is being provided with a high degree of safety through our unit structure and active adult engagement provided by our mental health professionals, mental health technicians, psychiatric nurses and myself. We are focusing on developing improved coping skills and identifying stressors that may have led to current episode. We will attempt to: * Integrate into therapeutic groups, milieu and individual therapy. * Maintain in a closely monitored and structured unit * Provide low-stimulation environment * Obtain collateral data to assist in treatment planning * Assess degree of lability of affect and impulse control * Complete safety plan * Decrease frequency of relapse and need for re-hospitalization * Medication effective in stabilization of mood and/or thought process * Tolerates medication without side effects * Patient will be on the following psychiatric medications: Aripiprazole 5mg po daily Quetiapine 200 mg nightly Glipizide LA 2.5mg daily Patient's legal status Patient is on a 90 MR involuntary treatment hold. Anticipated number of hospital days to achieve above goals: 3 Disposition: Anticipated discharge to home on a 90 day LR on Tuesday Farhan Mathur MD Feb 02, 2017 15:40
--- NOTE | 2017-02-03 04:55 | NUR ---
nursing, nights, 11-7 s- will speak macanese gesturing for staff to leave her room. o- another patient was loud next to her room at the start of the shift. has appeared to sleep after 0330 during q 15 minute assessments. a- inadequate sleep, declines staff offer of assistance. no apparent distress. p- monitor behavior/emotional state, quality, times and amount of sleep, use and effect of medication. selwyn
[2017-02-03] MEDS: glipiZIDE 2.5 mg ER24 Tablet PO SCH (07:50)
--- NOTE | 2017-02-03 12:40 | PCM.PNPSY ---
Subjective Date of Service Feb 03, 2017 Subjective I spent 30 minutes both reviewing treatment plan with our clinical team, interviewing the patient and providing supportive/educational psychotherapy. I used an japanese interpreter to help me communicate with this Malay only speaking patient. I spent less than 50% of the time counseling the patient. Shadia repeats that she is feeling an improvement in thought organization and mood stability. Staff reports that she has been isolating and is participating poorly in one-to-one unit and group activities. She slept 2 hours last night but approx 10 hours per 24 hours and denies depression or psychotic symptoms review. She denies medication side effects Mental Status Exam Appearance: Neat/well groomed Attitude: Pleasant, Cooperative Behavior: Other (Continues to isolate) Affect: Well Modulated/Appropriate Mood: Euthymic Thought Process/Associations: Logical/Sequential, Goal Directed Speech Production: Normal Speech Rate: Normal Speech Articulation: Normal Thought Content: Suspicious Danger to Self/Suicidal Ideati: None Danger to Others: None Delusions: Paranoid (Denies, paranoid of food) Consciousness: Alert Orientation: Person, Place (generally though not a mental facility), Situation Memory: Untestable Estimate Intellectual Function: Average Basis for IQ estimate: Word use/vocabulary, Educational history Attention/Concentration & Cogn: Grossly Intact Insight: Limited Judgement: Limited Mental Health Plan Shadia continues to be mostly isolative and staying in bed. She is refusing any type of psychotherapeutic work but is willing to talk to me and take medications. It seems as though my alliance with her is increasing. She appears to be making slow but gradual progress in improved thought organization and mood stability despite nearly complete nonparticipation in the unit program. At this point she is denying medication side effects. Staff reports that she has been participating minimally in one-to-one sessions . Staff reports that she is no longer feeling paranoid about her neighbors and is now wanting to leave the hospital. She slept well and denies depression manic or psychotic symptoms review . She is requesting discharge. I am planning to petition the court for us least restrictive order and discharge her to home on Tuesday if she continues to show this slow but steady improvement. [place] AXIS I Schizophrenia, chronic paranoid type. AXIS II Deferred. AXIS III History of diabetes by report AXIS IV Moderate. AXIS V Global Assessment of Functioning is 35. Treatments Patient is being provided with a high degree of safety through our unit structure and active adult engagement provided by our mental health professionals, mental health technicians, psychiatric nurses and myself. We are focusing on developing improved coping skills and identifying stressors that may have led to current episode. We will attempt to: * Integrate into therapeutic groups, milieu and individual therapy. * Maintain in a closely monitored and structured unit * Provide low-stimulation environment * Obtain collateral data to assist in treatment planning * Assess degree of lability of affect and impulse control * Complete safety plan * Decrease frequency of relapse and need for re-hospitalization * Medication effective in stabilization of mood and/or thought process * Tolerates medication without side effects * Patient will be on the following psychiatric medications: Aripiprazole 5mg po daily Quetiapine 200 mg nightly Glipizide LA 2.5mg daily Patient's legal status Patient is on a 90 MR involuntary treatment hold. Anticipated number of hospital days to achieve above goals: 3 Disposition: Anticipated discharge to home on a 90 day LR on Tuesday Farhan Mathur MD Feb 03, 2017 12:40
--- NOTE | 2017-02-03 13:25 | NUR ---
nursing note dayshift O) pt reports she is feeling fine and is not worried about anything, denies any pain or discomfort, pleasant cooperative with medications, isolates in room, ate most of her meals, dressed in own clothes, presents calm and smiling A) no change from previous day P) encourage participation and monitor behavior
[2017-02-03 16:10] VITALS: BP 124/75; PULSE 75
--- NOTE | 2017-02-03 16:21 | NUR ---
Glazier Structural Glass/Counselor S:" I need a broom." O: Patient did not express any SI or HI, no AVH, no anxiety or depression. A: Patient has been isolative in her room, and has not participated in any unit activities or come out to walk. P: Follow care plan and coordinate with outpatient providers.
--- NOTE | 2017-02-04 02:30 | NUR ---
Observations 1900 to 0700 Pt did not attend wrap up group. Pt ate a snack. Pt continues to isolate in room and is overheard speaking to self. Pt continues to lay in bed and currently has not slept. Staff completed 15 min close observations as ordered.
--- NOTE | 2017-02-04 04:41 | NUR ---
nursing, nights, 11-7 s/o- lays quietly in bed. has appeared to sleep after 0315 during q 15 minute assessments. a- no apparent distress. p- monitor behavior/emotional state, quality, times and amount of sleep, use and effect of medication. selwyn
[2017-02-04] MEDS: glipiZIDE 2.5 mg ER24 Tablet PO SCH (07:50)
--- NOTE | 2017-02-04 12:55 | NUR ---
Nursing Dayshift: S: "I never hear voices" through an stave log ripsaw operator. O: Patient presents with a bright and cheery affect. Assessed utilizing an stave log ripsaw operator. Denies anxiety, depression, harmful thoughts, and hallucinations. Jovial. Giggling often. Has been in her room all of the shift. Ate most of breakfast and a small portion of lunch. A: Isolative. Approachable. P: CPOC. Monitor mood and behavior.
--- NOTE | 2017-02-04 13:30 | PCM.PNPSY ---
Subjective Date of Service Feb 04, 2017 Subjective I spent 30 minutes both reviewing treatment plan with our clinical team, interviewing the patient and providing supportive/educational psychotherapy. I spent less than 50% of the time counseling the patient. Shadia repeats that she is feeling an improvement in thought organization and mood stability. Staff reports that she has been isolating and is participating poorly in one-to- one unit and group activities. She slept 2 hours last night but approx 11 hours per 24 hours and denies depression or psychotic symptoms review. She denies medication side effects Mental Status Exam Appearance: Neat/well groomed Attitude: Pleasant, Cooperative Behavior: Other (Continues to isolate) Affect: Well Modulated/Appropriate Mood: Euthymic Thought Process/Associations: Logical/Sequential, Goal Directed Speech Production: Normal Speech Rate: Normal Speech Articulation: Normal Thought Content: Suspicious Danger to Self/Suicidal Ideati: None Danger to Others: None Delusions: Paranoid (Denies, paranoid of food) Consciousness: Alert Orientation: Person, Place (generally though not a mental facility), Situation Memory: Untestable Estimate Intellectual Function: Average Basis for IQ estimate: Word use/vocabulary, Educational history Attention/Concentration & Cogn: Grossly Intact Insight: Limited Judgement: Limited Mental Health Plan Shadia continues to be mostly isolative and staying in bed. She is refusing any type of psychotherapeutic work but is willing to talk to me and take medications. It seems as though my alliance with her is increasing. She appears to be making slow but gradual progress in improved thought organization and mood stability despite nearly complete nonparticipation in the unit program. At this point she is denying medication side effects. Staff reports that she has been participating minimally in one-to-one sessions . Staff reports that she is no longer feeling paranoid about her neighbors and is now wanting to leave the hospital. She slept well and denies depression manic or psychotic symptoms review . She is requesting discharge. I believe she is reaching her baseline. Will work with case management in order to facilitate a transfer back to her family. I will petition the court on Tuesday for a 90 day LR and discharged home. [place] AXIS I Schizophrenia, chronic paranoid type. AXIS II Deferred. AXIS III History of diabetes by report AXIS IV Moderate. AXIS V Global Assessment of Functioning is 35. Treatments Patient is being provided with a high degree of safety through our unit structure and active adult engagement provided by our mental health professionals, mental health technicians, psychiatric nurses and myself. We are focusing on developing improved coping skills and identifying stressors that may have led to current episode. We will attempt to: * Integrate into therapeutic groups, milieu and individual therapy. * Maintain in a closely monitored and structured unit * Provide low-stimulation environment * Obtain collateral data to assist in treatment planning * Assess degree of lability of affect and impulse control * Complete safety plan * Decrease frequency of relapse and need for re-hospitalization * Medication effective in stabilization of mood and/or thought process * Tolerates medication without side effects * Patient will be on the following psychiatric medications: Aripiprazole 5mg po daily Quetiapine 200 mg nightly Glipizide LA 2.5mg daily Patient's legal status Patient is on a 90 MR involuntary treatment hold. Anticipated number of hospital days to achieve above goals: 3 Disposition: Anticipated discharge to home on a 90 day LR on Tuesday Farhan Mathur MD Feb 04, 2017 13:30
--- NOTE | 2017-02-04 18:47 | NUR ---
[facility] Day Shift Pt affect and behavior unchanged from previous shift. Pt spends the majority of the shift resting in her room, only entering the hallway to briefly pace the unit. Pt affect appears flat, occasionally superficially bright. Pt occasionally observed speaking to herself. Pt declined to attend community meeting or group activities. Pt ate approx 80% of breakfast and 20-50% of lunch and dinner.
[2017-02-04 19:06] VITALS: BP 121/78; PULSE 69; RESP 16
--- NOTE | 2017-02-05 05:54 | NUR ---
nursing, nights, 11-7 s/o- lays quietly in bed. has appeared to sleep after 0 during q 15 minute assessments. a- no apparent distress. p- monitor behavior/emotional state, quality, times and amount of sleep, use and effect of medication.
[2017-02-05] MEDS: glipiZIDE 2.5 mg ER24 Tablet PO SCH (08:34)
--- NOTE | 2017-02-05 13:19 | PCM.PNPSY ---
Subjective Date of Service Feb 05, 2017 Subjective I spent 30 minutes both reviewing treatment plan with our clinical team, interviewing the patient and providing supportive/educational psychotherapy. I spent less than 50% of the time counseling the patient. Shadia repeats that she is feeling an improvement in thought organization and mood stability. She was genuinely bright and making appropriate jokes with myself and the telephone diaphragm assembler. Staff reports that she has been isolating and is participating poorly in one-to-one unit and group activities. She slept 9 hours and denies depression or psychotic symptoms review. She denies medication side effects Mental Status Exam Appearance: Neat/well groomed Attitude: Pleasant, Cooperative Behavior: Other (Continues to isolate) Affect: Well Modulated/Appropriate Mood: Euthymic Thought Process/Associations: Logical/Sequential, Goal Directed Speech Production: Normal Speech Rate: Normal Speech Articulation: Normal Thought Content: Suspicious Danger to Self/Suicidal Ideati: None Danger to Others: None Delusions: Paranoid (Denies, paranoid of food) Consciousness: Alert Orientation: Person, Place (generally though not a mental facility), Situation Memory: Untestable Estimate Intellectual Function: Average Basis for IQ estimate: Word use/vocabulary, Educational history Attention/Concentration & Cogn: Grossly Intact Insight: Limited Judgement: Limited Mental Health Plan Shadia continues to be mostly isolative and staying in bed. She is refusing any type of psychotherapeutic work but is willing to talk to me and take medications. It seems as though my alliance with her is increasing. She appears to be making slow but gradual progress in improved thought organization and mood stability despite nearly complete nonparticipation in the unit program. At this point she is denying medication side effects. Staff reports that she has been participating minimally in one-to-one sessions . Staff reports that she is no longer feeling paranoid about her neighbors and is now wanting to leave the hospital. She slept well and denies depression manic or psychotic symptoms review . She is requesting discharge. I believe she is reaching her baseline. Will work with case management in order to facilitate a transfer back to her family. I will petition the court on Tuesday for a 90 day LR and discharged home. [place] AXIS I Schizophrenia, chronic paranoid type. AXIS II Deferred. AXIS III History of diabetes by report AXIS IV Moderate. AXIS V Global Assessment of Functioning is 35. Treatments Patient is being provided with a high degree of safety through our unit structure and active adult engagement provided by our mental health professionals, mental health technicians, psychiatric nurses and myself. We are focusing on developing improved coping skills and identifying stressors that may have led to current episode. We will attempt to: * Integrate into therapeutic groups, milieu and individual therapy. * Maintain in a closely monitored and structured unit * Provide low-stimulation environment * Obtain collateral data to assist in treatment planning * Assess degree of lability of affect and impulse control * Complete safety plan * Decrease frequency of relapse and need for re-hospitalization * Medication effective in stabilization of mood and/or thought process * Tolerates medication without side effects * Patient will be on the following psychiatric medications: Aripiprazole 5mg po daily Quetiapine 200 mg nightly Glipizide LA 2.5mg daily Patient's legal status Patient is on a 90 MR involuntary treatment hold. Anticipated number of hospital days to achieve above goals: 3 Disposition: Anticipated discharge to home on a 90 day LR on Tuesday Farhan Mathur MD Feb 05, 2017 13:19
--- NOTE | 2017-02-05 14:13 | NUR ---
Nursing Note [id number] Behavior S/O: Pt in room all of the day. Pt took am medications as ordered. Pt ate 75% of breakfast & refused lunch. Pt laughing & smiling with psychiatrist. Pt reports she is "good." Conversation tracking clear & organized with normal rate & rhythm. Pt understands some Portuguese, but relies on aerial photograph interpreter for most conversation. A: No psychotic sx noted. P: Provide supportive environment. Monitor medications & effects.
--- NOTE | 2017-02-05 21:59 | NUR ---
NURSING NOTE [id number] Mood: "happy" *smiles* Affect: pleasant upon approach, joking at times, isolative Behavior: pt continues to isolate to her room, mostly in bed but did get up several times to pace around her room. Her sons visited w/her and expressed to this typewriter assembler their happiness with her potential discharge date this week and that they have their house already prepared for her in anticipation for her homecoming. Med compliant at HS. Pt. ate 25% of her dinner and drank an Ensure. Thought processes: pt. denies any depression or anxiety, reports she feels safe here but does not want to leave her room and be "out there." No overt delusions noted.
--- NOTE | 2017-02-06 06:41 | NUR ---
Sleep Adequate sleep through the night with no noted distress or awakening per protocol checks. Total sleep over 9 hours.
[2017-02-06] MEDS: glipiZIDE 2.5 mg ER24 Tablet PO SCH (08:38)
--- NOTE | 2017-02-06 13:12 | PCM.PNPSY ---
Subjective Date of Service Feb 06, 2017 Subjective I spent 30 minutes both reviewing treatment plan with our clinical team, interviewing the patient and providing supportive/educational psychotherapy. I spent less than 50% of the time counseling the patient. Shadia repeats that she is feeling an improvement in thought organization and mood stability. She was genuinely bright and making appropriate jokes with myself and the cook vegetable. Staff reports that she has been isolating and is participating poorly in one-to-one unit and group activities. She slept 9 hours and denies depression or psychotic symptoms review. She denies medication side effects Mental Status Exam Appearance: Neat/well groomed Attitude: Pleasant, Cooperative Behavior: No unusual behavior, Other (Continues to isolate to her bedroom) Affect: Well Modulated/Appropriate Mood: Euthymic Thought Process/Associations: Logical/Sequential, Goal Directed Speech Production: Normal Speech Rate: Normal Speech Articulation: Normal Thought Content: Suspicious Danger to Self/Suicidal Ideati: None Danger to Others: None Consciousness: Alert Orientation: Person, Place, Date, Situation Memory: Untestable Estimate Intellectual Function: Average Basis for IQ estimate: Word use/vocabulary, Educational history Attention/Concentration & Cogn: Grossly Intact Insight: Limited Judgement: Limited Mental Health Plan Shadia continues to be mostly isolative and staying in bed. She is refusing any type of psychotherapeutic work but is willing to talk to me and take medications. It seems as though my alliance with her is increasing. She appears to be making slow but gradual progress in improved thought organization and mood stability despite nearly complete nonparticipation in the unit program. At this point she is denying medication side effects. Staff reports that she has been participating minimally in one-to-one sessions . Staff reports that she is no longer feeling paranoid about her neighbors and is now wanting to leave the hospital. She slept well and denies depression manic or psychotic symptoms review . She is requesting discharge. I believe she is reaching her baseline. Will work with case management in order to facilitate a transfer back to her family. I will petition the court on Tuesday for a 90 day LR and discharged home. [place] AXIS I Schizophrenia, chronic paranoid type. AXIS II Deferred. AXIS III History of diabetes by report AXIS IV Moderate. AXIS V Global Assessment of Functioning is 35. Treatments Patient is being provided with a high degree of safety through our unit structure and active adult engagement provided by our mental health professionals, mental health technicians, psychiatric nurses and myself. We are focusing on developing improved coping skills and identifying stressors that may have led to current episode. We will attempt to: * Integrate into therapeutic groups, milieu and individual therapy. * Maintain in a closely monitored and structured unit * Provide low-stimulation environment * Obtain collateral data to assist in treatment planning * Assess degree of lability of affect and impulse control * Complete safety plan * Decrease frequency of relapse and need for re-hospitalization * Medication effective in stabilization of mood and/or thought process * Tolerates medication without side effects * Patient will be on the following psychiatric medications: Aripiprazole 5mg po daily Quetiapine 200 mg nightly Glipizide LA 2.5mg daily Patient's legal status Patient is on a 90 MR involuntary treatment hold. Anticipated number of hospital days to achieve above goals: 3 Disposition: Anticipated discharge to home on a 90 day LR on Tuesday Farhan Mathur MD Feb 06, 2017 13:12
--- NOTE | 2017-02-06 13:38 | NUR ---
Nursing Note [id number] Behavior, Mood S/O: Pt in room all day. Pt smiling at staff. Conversation tracking clear & organized with normal rate & rhythm. Pt pleasant & cooperative. Pt has good appetite. Pt denies depression. A: No psychotic sx noted. P: Provide supportive environment. Monitor medications & effects.
[2017-02-06 13:54] VITALS: BP 130/81; PULSE 78
--- NOTE | 2017-02-06 16:30 | NUR ---
Obs Dayshift Pt had a visit from her son, he was able to get her out of her room and she walked the singleotn in front of her room. Good eye contact, smiling. Pt is calm, eating well, walking in her room, and straightening up/light cleaning in her room. Pt continues to respond some to IS, and paranoid. Pt engages well w/ family, little w/ staff. Ok ADL's, Good meals
--- NOTE | 2017-02-06 22:22 | NUR ---
NURSING NOTE [id number] Mood: "good" Affect: smiling, pleasant Behavior: pt. mostly isolating to room this shift but did come out and pace outside of her room while her family visited. She approached the NS several times to smile and wave steven at staff. 17:30 FSBS 108. Pt. drank Ensure and had 10% of her dinner. Med compliant. Thought processes: denies depression/anxiety/SI. Visibly smiling and cheerful.
[2017-02-07] MEDS: glipiZIDE 2.5 mg ER24 Tablet PO SCH (09:32)
--- NOTE | 2017-02-07 12:56 | PCM.PNPSY ---
Subjective Date of Service Feb 07, 2017 Subjective I spent 30 minutes both reviewing treatment plan with our clinical team, interviewing the patient and providing supportive/educational psychotherapy. I spent less than 50% of the time counseling the patient. Shadia repeats that she is feeling an improvement in thought organization and mood stability. She was genuinely bright and making appropriate jokes with myself and the smoked meat preparer. Staff reports that she has been isolating and is participating poorly in one-to-one unit and group activities. She slept 5 hours and denies depression or psychotic symptoms review. She denies medication side effects Mental Status Exam Appearance: Neat/well groomed Attitude: Pleasant, Cooperative Behavior: No unusual behavior, Other (Continues to isolate to her bedroom) Affect: Well Modulated/Appropriate Mood: Euthymic Thought Process/Associations: Logical/Sequential, Goal Directed Speech Production: Normal Speech Rate: Normal Speech Articulation: Normal Thought Content: Suspicious Danger to Self/Suicidal Ideati: None Danger to Others: None Consciousness: Alert Orientation: Person, Place, Date, Situation Memory: Untestable Estimate Intellectual Function: Average Basis for IQ estimate: Word use/vocabulary, Educational history Attention/Concentration & Cogn: Grossly Intact Insight: Limited Judgement: Limited Mental Health Plan Shadia continues to be mostly isolative and staying in bed. She is refusing any type of psychotherapeutic work but is willing to talk to me and take medications. It seems as though my alliance with her is increasing. She appears to be making slow but gradual progress in improved thought organization and mood stability despite nearly complete nonparticipation in the unit program. At this point she is denying medication side effects. Staff reports that she has been participating minimally in one-to-one sessions . Staff reports that she is no longer feeling paranoid about her neighbors and is now wanting to leave the hospital. She slept well and denies depression manic or psychotic symptoms review . She is requesting discharge. I believe she is reaching her baseline. Will work with case management in order to facilitate a transfer back to her family. I will petition the court on Tuesday for a 90 day LR and discharged home. Today I was able to work with the patient on a safety plan with the brineyard supervisor. Anticipate discharge in the a.m. [place] AXIS I Schizophrenia, chronic paranoid type. AXIS II Deferred. AXIS III History of diabetes by report AXIS IV Moderate. AXIS V Global Assessment of Functioning is 40. Treatments Patient is being provided with a high degree of safety through our unit structure and active adult engagement provided by our mental health professionals, mental health technicians, psychiatric nurses and myself. We are focusing on developing improved coping skills and identifying stressors that may have led to current episode. We will attempt to: * Integrate into therapeutic groups, milieu and individual therapy. * Maintain in a closely monitored and structured unit * Provide low-stimulation environment * Obtain collateral data to assist in treatment planning * Assess degree of lability of affect and impulse control * Complete safety plan * Decrease frequency of relapse and need for re-hospitalization * Medication effective in stabilization of mood and/or thought process * Tolerates medication without side effects * Patient will be on the following psychiatric medications: Aripiprazole 5mg po daily Quetiapine 200 mg nightly Glipizide LA 2.5mg daily Patient's legal status Patient is on a 90 MR involuntary treatment hold. Anticipated number of hospital days to achieve above goals: 3 Disposition: Anticipated discharge to home on a 90 day LR on Tuesday Farhan Mathur MD Feb 07, 2017 12:56
--- NOTE | 2017-02-07 15:17 | NUR ---
Obs Dayshift Pt little to no change from past days. Pt is smiling, good eye contact. Engaging well and often w/ Sinhala speaking staff. Came out of her room a few times just into the hallway and back into her room. Pt is pacing/walking in her room often. Eating better but continues to only eat in her room. Ok/Poor ADL's, Good meals
--- NOTE | 2017-02-07 19:11 | NUR ---
Nursin to 1900 S/O: Shadia spent the day in her room as usual. However, she interacted verbally frequently with Lao speaking staff person on this shift. No complaints about food or meds. Eats in her room. Behavior within control. A: At baseline. P: Support toward discharge.
--- NOTE | 2017-02-08 05:08 | NUR ---
Nursing Note Supervisor Testing 11pm to 7am Pt asleep at start of shift and remained asleep for the duration of the shift. Monitored pt. with q 15 minute face checks for safety, location and accountability
[2017-02-08 08:30] VITALS: BP 111/76; PULSE 86; RESP 20
[2017-02-08] MEDS: glipiZIDE 2.5 mg ER24 Tablet PO SCH (09:43)
[2017-02-08] MEDS ORDERED: GLIP2.5T2 PO (11:18)
[2017-02-08] MEDS ORDERED: QUET100T69 PO (11:18)
[2017-02-08] MEDS ORDERED: ARIP5TAB5 PO (11:18)
--- NOTE | 2017-02-08 11:20 | PCM.DIMED ---
Discharge Instructions Date of Service Feb 08, 2017 Dates of Hospitalization Dec 31, 2016 at 20:10 Discharge Diagnosis Discharge Diagnosis AXIS I Schizophrenia, chronic paranoid type. AXIS II Deferred. AXIS III History of diabetes by report AXIS IV Moderate. AXIS V Global Assessment of Functioning is 40. Diet Discharge Diet: No restrictions Activity Discharge Activity: No restrictions Call your provider Call your provider for: Fever or Chills Patient Instructions Patient Instructions I Strongly encouraged patient to follow up with outpatient care: 1-Recommended patient takes medication as prescribed and not alter this unless under the direct care of a provider. 2-Recommend client refrain from recreational drugs and alcohol while taking psychiatric medications. 3--Recommend patient attempt to find a therapist or group to deal with interpersonal relationship conflicts Follow-up plan Plan to follow up with [facility] please see advanced nursing professor and has summary for specific appointment times Follow-up with PCP in: 2 weeks Farhan Mathur MD Feb 08, 2017 11:20
--- NOTE | 2017-02-08 11:53 | DIS ---
[address] [address] DISCHARGE SUMMARY PATIENT: ARIELLE GARSIA : 1950 MR#: [id number] ADMIT: 12/31/2016 JOB ID: [id number] DIS: IDENTIFICATION: The patient is a 66-year-old, [place] only speaking female with a history of schizophrenia who was brought to the emergency department by law enforcement due to aggressive behavior in the community and reportedly not being on her medications for several years. SUMMARY OF PRESENT ILLNESS: The patient is a 66-year-old female with history of schizophrenia who presents with extreme paranoia. She has not been active in treatment of any kind for at least three years prior to admission. It was unclear what exact medication she had been taking but it does appear that she had used Seroquel in the past. She has a very supportive family who were willing to do anything to help her get the help she needs. HOSPITAL COURSE: The client was admitted to our unit and was provided with a high degree of safety through the structure and active adult engagement she received here. We had her participate in one-to-one unit and group activities focused on improving coping skills, reality based thinking and educating her about medications. Client participated minimally in the above activities, and tended to isolate to her room. We met with her daily with a senior wealth advisor. She was stabilized on a combination of Abilify 5 in the morning and Seroquel 100 h.s. She also received glipizide throughout her stay for noninsulin-dependent diabetes. Client showed slow but gradual improvement over her stay. The past 72 hours she has been essentially symptom free except for tending to isolate in her room. We arranged for outpatient followup through Sep, and she will discharge to home to her family today. MENTAL STATUS EXAMINATION: Client neatly and stylishly dressed. Lying in her hospital bed. Her behavior was energetic. Her affect was positive and bright. Her attitude was cooperative and pleasant. Mood euthymic. Affect congruent. Normal intensity. Thought process, client is still unable to relate a coherent history but is not showing overt symptoms of psychosis. Thought content significant for themes of future planning, how she is going to take care of her family and different things she would enjoy cooking. She initially described being very paranoid thinking we were bad and now knows that she can come here for help. Denied suicidal ideation. Insight and judgment appear to be at baseline. Impulse control highly contained yet rigid. Has a difficult time handling impulses of fear. Reality testing intact. Competence to handle current stressors seems to be at baseline. DIAGNOSES: AXIS I Schizophrenia, chronic paranoid type. AXIS II Defer. AXIS III Noninsulin dependent diabetes. AXIS IV Unknown. AXIS V Current Global Assessment of Functioning equal to 40. DISCHARGE MEDICATIONS: 1. Abilify 5 mg q.h.s. 2. Seroquel 200 mg h.s. 3. Abilify 5 daily. 4. Glipizide 2.5 mg daily. ACTIVITY AND DIET: Recommend client refrain from recreational drugs and alcohol while taking psychiatric medications. Recommend she not change her medications unless under the supervision of a physician. CONDITION ON DISCHARGE: Good. PROGNOSIS: Good.
--- NOTE | 2017-02-08 13:56 | NUR ---
Emotional Support Teacher/Counselor S/O:Patient was very excited about going home today and has been in and out of her room all morning. A: Patient has been cooperative and excited. She will be picked up by her family at 2pm. Patient has follow up appt. scheduled with [facility] on February 18, but clinic will call patient if sooner appt. becomes available. Family is willing and able to take care of patient and make sure she follows discharge instructions and takes medications as instructed. P: Follow discharge instructions.
--- NOTE | 2017-02-08 14:38 | NUR ---
Discharge to home Pt's family present during pt's discharge. Medications and f/u appointments explained and witnessed by her son and daughter. The son witnessed and signed discharge instructions with mother's verbal consent through an manufacturing analyst. Pt left the unit in a good mood and smiling. Ambulatory with a steady gait.
== END 2017-02-08 14:25 | disposition home or self-care (01) | DRG 885 ==
LOC: SED 10:14 → MHC 20:10
PROVIDERS: ADMIT Psychiatry & Neurology Psychiatry; ATTEND Psychiatry & Neurology Psychiatry
DX: F20.0 Paranoid schizophrenia (principal); E11.65 Type 2 diabetes mellitus with hyperglycemia